=== PATIENT | female | born 1955 | race Hispanic/Latino ===

== ENCOUNTER 2016-09-13 17:19 | Inpatient (IN) | payer MEDICAID ==
[2016-09-13 17:26] VITALS: BMI 36.8
[2016-09-13 18:07] LABS: BASO # 0.1 K/uL (0.0-0.2); BASO % 0.7 % (0.0-2.0); EOS # 0.2 K/uL (0.0-0.7); EOS % 1.1 % (0.0-4.0); HEMOGLOBIN 14.2 g/dL (11.0-16.0); LYMPH # 2.3 K/uL (1.0-4.3); LYMPH % 15.5 % (20.0-40.0); MEAN CELL VOLUME 83.1 fL (81.0-99.0); MEAN CORPUSCULAR HEMOGLOBIN 27.1 pg (27.0-31.0); MEAN CORPUSCULAR HGB CONC 32.6 g/dL (33.0-37.0); MEAN PLATELET VOLUME 8.1 fL (7.2-11.7); MONO # 0.9 K/uL (0.0-0.8); MONO % 5.8 % (0.0-10.0); NEUT # 11.5 K/uL (1.8-7.0); NEUT % 76.9 % (50.0-75.0); RBC 5.23 Mil/uL (3.80-5.20); RED CELL DISTRIBUTION WIDTH 14.4 % (11.5-14.5); WHITE BLOOD COUNT 14.9 K/uL (4.8-10.8)
[2016-09-13 18:13] LABS: ALBUMIN 4.1 g/dL (3.5-5.0)
[2016-09-13 18:16] LABS: ALB/GLOB RATIO 1.3 (1.0-2.1); AST/SGOT 18 U/L (14-36); GFR AFRICAN-AMERICAN > 60; GFR NON-AFRICAN AMERICAN > 60
[2016-09-13 18:17] LABS: ALT/SGPT 24 U/L (9-52); BLOOD UREA NITROGEN 6 mg/dL (7-17); CALCIUM 9.7 mg/dl (8.6-10.4)
[2016-09-13 18:26] LABS: PROTHROMBIN TIME 11.7 SECONDS (9.7-12.2)
--- NOTE | 2016-09-13 18:26 | C.PDOC ---
History Of Present Illness Patient is a 60 y/o female that is sent to the ED by Dr. Bowman for Invega injection. As per niece, patient complains of shortness of breath, and was told to report to ER by Dr. Rey. Of note, patient is heavy smoker. Patient was last admitted 5 months ago, but had signed out AMA to smoke. Pt states, "I do not want to ." Otherwise, denies any cough, chest pain, palpitations, lightheadedness, fever, chills, or any other associated symptoms at this time. Time Seen by Provider: 09/13/16 17:38 Chief Complaint (Nursing): Shortness Of Breath History Per: Patient History/Exam Limitations: no limitations Onset/Duration Of Symptoms: Days Current Symptoms Are (Timing): Still Present Severity: None Pain Scale Rating Of: 0 Associated Symptoms: denies: Fever, Chills, Sweating, Chest Pain, Bloody Cough, Productive Cough, Heart Racing, Leg/Calf Pain, Ankle/Leg Swelling, Dizziness, Light-headedness, Anxiety, Tingling In Hands Or Face, Musle Spasms In Hands Or Feet Reports Recently: Treated By A Physician Recent travel outside of the [place]: No Additional History Per: Patient Past Medical History Reviewed: Historical Data, Nursing Documentation, Vital Signs Vital Signs: Last Vital Signs Temp 97.9 F 09/13/16 17:31 Pulse 125 H 09/13/16 17:50 Resp 25 H 09/13/16 17:52 BP 132/101 H 09/13/16 17:50 Pulse Ox 98 09/13/16 18:54 - Medical History PMH: Anxiety, Arthritis, COPD, Depression, Emphysema, HTN, Hypercholesterolemia , Migraine, Pneumonia (2009), Schizophrenia Denies: Chronic Kidney Disease Family History: States: Unknown Family Hx - Social History Hx Alcohol Use: No Hx Substance Use: No - Immunization History Hx Tetanus Toxoid Vaccination: No Hx Influenza Vaccination: No Hx Pneumococcal Vaccination: No Review Of Systems Except As Marked, All Systems Reviewed And Found Negative. Constitutional: Negative for: Fever, Chills Cardiovascular: Negative for: Chest Pain, Palpitations, Edema, Light Headedness Respiratory: Positive for: Shortness of Breath. Negative for: Cough, Hemoptysis , Pleuritic Pain, Sputum Gastrointestinal: Negative for: Nausea, Vomiting, Abdominal Pain Neurological: Negative for: Weakness, Numbness, Headache, Dizziness Physical Exam - Physical Exam Appears: Non-toxic, No Acute Distress, Other (anxious) Skin: Normal Color, Warm, Dry Head: Atraumatic, Normacephalic Eye(s): bilateral: Normal Inspection, EOMI Neck: Normal ROM, Supple Chest: Symmetrical, No Tenderness Cardiovascular: Rhythm Regular (tachycardic), No Murmur Respiratory: No Rales, No Rhonchi, Wheezing Gastrointestinal/Abdominal: Soft, No Tenderness Extremity: Normal ROM, No Pedal Edema, Capillary Refill (< 2 sec.), No Deformity Pulses: Left Dorsalis Pedis: Normal, Right Dorsalis Pedis: Normal Neurological/Psych: Oriented x3, Normal Speech, Normal Cognition ED Course And Treatment - Laboratory Results Result Diagrams: 09/13/16 18:03 09/13/16 18:03 ECG: Interpreted By Me, Viewed By Me ECG Rhythm: Sinus Tachycardia ECG Interpretation: No Acute Changes Rate From EC (bpm) O2 Sat by Pulse Oximetry: 98 (on RA) Pulse Ox Interpretation: Normal Progress Note: Blood work, urinalysis, CXR, EKG ordered and reviewed. Patient was treated with Albuterol, Solu-Medrol, and Avelox. - Physician Consult Information Physician Contacted: Bhavesh Rey Outcome Of Conversation: Accepted to Med/Surg for observation Disposition - Disposition Disposition: HOSPITALIZED Disposition Time: 18:57 Condition: FAIR - Clinical Impression Clinical Impression: Bronchitis, COPD exacerbation - PA / BLENDING LINE ATTENDANT / Resident Statement MD/DO has reviewed & agrees with the documentation as recorded. - Scribe Statement The provider has reviewed the documentation as recorded by the Ivanaibdiana Granger All medical record entries made by the Ivanaibdiana were at my direction and personally dictated by me. I have reviewed the chart and agree that the record accurately reflects my personal performance of the history, physical exam, medical decision making, and the department course for this patient. I have also personally directed, reviewed, and agree with the discharge instructions and disposition. Decision To Admit - Pt Status Changed To: Hospital Disposition Of: Observation - . Bed Request Type: Regular Admitting Physician: Bhavesh Rey Patient Diagnosis: COPD exacerbation, Bronchitis
[2016-09-13 18:27] LABS: CK-MB 1.24 ng/mL (0.0-3.38)
[2016-09-13] MEDS ORDERED: Albuterol-Ipratrop 3 mg / 0.5 (3 ml) UD IH STA (18:35)
[2016-09-13] MEDS ORDERED: Albuterol-Ipratrop 3 mg / 0.5 (3 ml) UD ONE ×2 (18:49→21:18)
[2016-09-13] MEDS ORDERED: Moxifloxacin IV 400mg/250ml NS 400 MG/250 ML BAG IV STA (18:49)
[2016-09-13] MEDS ORDERED: Moxifloxacin IV 400mg/250ml NS 400 MG/250 ML BAG IVPB ONE (19:01)
[2016-09-13] MEDS ORDERED: Albuterol-Ipratrop 3 mg / 0.5 (3 ml) UD INH STA (21:06)
--- NOTE | 2016-09-13 21:59 | CP.PCM.HP ---
History of Present Illness - History of Present Illness History of Present Illness: Chief complaint: Shortness of breath History present illness: 60-year-old female with history of COPD, currently active smoking, schizophrenia , bipolar disease. Patient is currently being followed up by psychiatrist. Currently receiving intra-muscular injection INVEGA once in 2 months. Patient used to be on multiple medications, but she has a significant behavior problems including problem in her cleanliness, patient is extremely untidy. Patient still continues to smoke almost to 2 packs per day. Patient was complaining of increasing dizziness. She was also complaining of generalized body pain, back pain, and bilateral knee pain. Patient went to see his psychiatrist today. During the time patient was seen severe shortness of breath, and was taken to the emergency room. In the emergency room patient was having severe shortness of breath. Exertional dyspnea significant noted. Hypoxia noted. Patient was immediately placed on oxygen and given nebulizers Past medical history: Hypertension, osteoarthritis, osteoporosis, COPD, schizophrenia, hypercholesterolemia. Past surgical history: None Allergies: Penicillin and tetracycline Personal history: Patient is a lifelong nonalcoholic, but patient continues to smoke for many years, more than 30 years, 2 pack per day currently she is smoking 1 pack per day. Denies any drug abuse. Patient sees the psychiatrist once a month and she gets the injection Family history: Noncontributory Review of system: The patient is somewhat agitated. She was complaining of dizziness. According to the family member she was having some ear infection, especially on the right side with the some discharge. According to the family members and she was also having some discharge from the left side of the breast. She was having epigastric pain, abdominal pain on and off. But severe shortness of breath and cough and wheezing noted Vital signs reviewed No neck vein distention noted Severe bilateral diffuse wheezing and rhonchi noted CVS regular heart sound, no murmur noted Abdomen soft, nontender. Extremities no pedal edema TUBE BLOWER alert awake oriented 3, no functional neurological deficit Left breast was examined with the nurse at bedside, no evidence of lesions noted Right ear some discharge noted Chest x-ray showing no evidence of any acute infiltrate, but left lower lung zone haziness noted Assessment a condition: 60-year-old female with history of COPD, active smoking, schizophrenia, bipolar disease. Now admitted with acute exacerbation of COPD with the severe wheezing and rhonchi. Patient is on antibiotic Avelox, corticosteroids, broncho-dilator. Glucose monitoring. Patient is currently refusing to have the further workup including CAT scan of the lungs, and the further ENT evaluation. We will attempted to have further evaluation, continue the current treatment, DVT and GI prophylaxis. Will follow the patient. She is complaining of vertigo most likely related to the right ear infection. Patient is also having agitation, and anxiety. We'll get a psychiatric consultation tomorrow Present on Admission - Present on Admission Any Indicators Present on Admission: No History of DVT/PE: No History of Uncontrolled Diabetes: No Urinary Catheter: No Decubitus Ulcer Present: No Past Patient History - Infectious Disease Hx of Infectious Diseases: None - Past Medical History & Family History Past Medical History?: Yes - Past Social History Smoking Status: Heavy Smoker > 10 Cigarettes Daily - CARDIAC Hx Hypercholesterolemia: Yes Hx Hypertension: Yes - PULMONARY Hx Chronic Obstructive Pulmonary Disease (COPD): Yes Hx Emphysema: Yes Hx Pneumonia: Yes (2009) - NEUROLOGICAL Hx Migraine: Yes - HEENT Hx HEENT Problems: Yes Other/Comment: wear eyeglasses (bifocal) - RENAL Hx Chronic Kidney Disease: No - ENDOCRINE/METABOLIC Hx Endocrine Disorders: No - HEMATOLOGICAL/ONCOLOGICAL Hx Blood Disorders: No - INTEGUMENTARY Hx Dermatological Problems: No - MUSCULOSKELETAL/RHEUMATOLOGICAL Hx Arthritis: Yes - GASTROINTESTINAL Hx Gastrointestinal Disorders: No - GENITOURINARY/GYNECOLOGICAL Hx Genitourinary Disorders: No - PSYCHIATRIC Hx Anxiety: Yes Hx Depression: Yes Hx Schizophrenia: Yes Hx Substance Use: No - SURGICAL HISTORY Hx Surgeries: No - ANESTHESIA Hx Anesthesia: No Hx Anesthesia Reactions: No Hx Malignant Hyperthermia: No Meds Allergies/Adverse Reactions: Allergies Allergy/AdvReac Type Severity Reaction Status Date / Time Penicillins Allergy Verified 09/13/16 17:23 tetracycline Allergy Verified 09/13/16 17:23 Results - Vital Signs Recent Vital Signs: Last Vital Signs Temp 97.9 F 09/13/16 17:31 Pulse 125 H 09/13/16 17:50 Resp 25 H 09/13/16 17:52 BP 132/101 H 09/13/16 17:50 Pulse Ox 98 09/13/16 18:58 - Labs Result Diagrams: 09/14/16 06:57 09/14/16 06:57
[2016-09-13 23:35] LABS: SQUAMOUS EPITHIAL 1 /hpf (0-5); URINE BACTERIA RARE (<OCC); URINE BILIRUBIN NEGATIVE (NEGATIVE); URINE BLOOD NEGATIVE (NEGATIVE); URINE CLARITY Hazy (Clear); URINE COLOR Yellow (YELLOW); URINE GLUCOSE (UA) NORMAL (Normal); URINE LEUKOCYTE ESTERASE NEG Leu/uL (Negative); URINE NITRATE NEGATIVE (NEGATIVE); URINE PROTEIN NEGATIVE (NEGATIVE); URINE UROBILINOGEN NORMAL mg/dL (0.2-1.0)
[2016-09-14] MEDS: Albuterol-Ipratrop 3 mg / 0.5 (3 ml) UD INH SCH ×4 (01:23→20:03)
[2016-09-14] MEDS ORDERED: Pneumococcal 23-Valent Vaccine IM ONE (01:56)
[2016-09-14] MEDS: MethylPREDNISolone 40 mg Vial IVP SCH ×3 (05:50→21:50)
[2016-09-14 07:10] LABS: GFR AFRICAN-AMERICAN > 60; GFR NON-AFRICAN AMERICAN > 60
[2016-09-14 07:11] LABS: ALB/GLOB RATIO 1.3 (1.0-2.1); ALT/SGPT 20 U/L (9-52); AST/SGOT 18 U/L (14-36); BLOOD UREA NITROGEN 6 mg/dL (7-17); CALCIUM 9.8 mg/dl (8.6-10.4)
[2016-09-14 07:16] LABS: BASO % 0.3 % (0.0-2.0); HEMOGLOBIN 14.6 g/dL (11.0-16.0); LYMPH # 0.8 K/uL (1.0-4.3); LYMPH % 6.6 % (20.0-40.0); MEAN CELL VOLUME 83.8 fL (81.0-99.0); MEAN CORPUSCULAR HEMOGLOBIN 27.3 pg (27.0-31.0); MEAN CORPUSCULAR HGB CONC 32.6 g/dL (33.0-37.0); MEAN PLATELET VOLUME 8.6 fL (7.2-11.7); MONO # 0.4 K/uL (0.0-0.8); MONO % 3.5 % (0.0-10.0); NEUT # 10.9 K/uL (1.8-7.0); NEUT % 89.6 % (50.0-75.0); NRBC % 0.1 % (0.0-2.0); PLATELET COUNT 281 K/uL (130-400); RBC 5.34 Mil/uL (3.80-5.20); RED CELL DISTRIBUTION WIDTH 14.2 % (11.5-14.5); WHITE BLOOD COUNT 12.2 K/uL (4.8-10.8)
[2016-09-14] MEDS: Tiotropium 18 mcg Cap For Inhalation INH SCH (08:25)
[2016-09-14] MEDS: Fluticasone-Salmeterol 500-50mcg Diskus INH SCH ×2 (08:25→20:02)
[2016-09-14 09:10] LABS: BANDS 2 % (0-2); LYMPHOCYTE 8 % (20-40); MONOCYTE 2 % (0-10); NEUTROPHIL 88 % (50-75); PLATELET ESTIMATE NORMAL (NORMAL); TOTAL CELLS COUNTED 100
[2016-09-14] MEDS: Pantoprazole 40 mg EC Tab PO SCH (09:48)
--- NOTE | 2016-09-14 10:41 | RAD ---
PROCEDURE: CHEST RADIOGRAPH, 1 VIEW HISTORY: Shortness of breath COMPARISON: 05/03/2016 FINDINGS: LUNGS: Moderate venous congestion with patchy bibasilar airspace opacities ; left greater than right. PLEURA: As above. CARDIOVASCULAR: Tortuous ectatic aorta. Mild cardiomegaly. OSSEOUS STRUCTURES: No significant abnormalities. VISUALIZED UPPER ABDOMEN: Normal. OTHER FINDINGS: None. IMPRESSION: Moderate venous congestion with patchy bibasilar airspace opacities ; left greater than right.
[2016-09-14] MEDS: Moxifloxacin IV 400mg/250ml NS 400 MG/250 ML BAG IVPB SCH (13:18)
[2016-09-14] MEDS: Ofloxacin 0.3% Otic Soln AU SCH (21:49)
--- NOTE | 2016-09-14 22:37 | CP.PCM.PN ---
Subjective - Date & Time of Evaluation Date of Evaluation: 09/14/16 Time of Evaluation: 22:37 - Subjective Subjective: Having significant amount of shortness of breath, and cough. She is refusing to cooperate with the nurses in the unit. She is not willing to have hospital dress. Currently receiving antibiotic and the corticosteroids. On examination: Bilateral wheezing noted, rales present. Edema 1+ bilaterally in the legs noted Assessment and recommendation 60-year-old female with a history of schizophrenia. COPD exacerbation. Chronic active smoking. We'll start the patient on antibiotic. Continue the current treatment. Objective - Vital Signs/Intake and Output Vital Signs (last 24 hours): Temp Pulse Resp BP Pulse Ox 98.1 F 118 H 20 139/83 98 09/14/16 16:00 09/14/16 16:00 09/14/16 16:00 09/14/16 16:00 09/14/16 16:00 Intake and Output: 09/14/16 09/15/16 18:59 06:59 Intake Total 950 Balance 950 - Medications Medications: Current Medications Albuterol/Ipratropium (Duoneb 3 Mg/0.5 Mg (3 Ml) Ud) 3 ml INH RQ6 [facility] Last Admin: 09/14/16 20:03 Dose: 3 ml Amlodipine Besylate (Norvasc) 10 mg PO DAILY [facility] Last Admin: 09/14/16 09:50 Dose: 10 mg Docusate Sodium (Colace) 100 mg PO BID [facility] Heparin Sodium (Porcine) (Heparin) 5,000 units SC Q8 [facility] Last Admin: 09/14/16 21:50 Dose: 5,000 units Moxifloxacin HCl (Avelox Iv 400mg/250ml Ns) 400 mg in 250 mls @ 167 mls/hr IVPB Q24H [facility] Last Admin: 09/14/16 13:18 Dose: 167 mls/hr Meclizine HCl (Antivert) 12.5 mg PO TID [facility] Methylprednisolone (Solu-Medrol) 40 mg IVP Q8 [facility] Last Admin: 09/14/16 21:50 Dose: 40 mg Ofloxacin (Floxin 0.3% Otic Soln) 0 ml AU BID [facility] Last Admin: 09/14/16 21:49 Dose: 10 drop Ondansetron HCl (Zofran Odt) 4 mg PO Q6 PRN PRN Reason: Nausea/Vomiting Pantoprazole Sodium (Protonix Ec Tab) 40 mg PO DAILY [facility] Last Admin: 09/14/16 09:48 Dose: 40 mg Pneumococcal Polyvalent Vaccine (Pneumovax 23 Vaccine) 0.5 ml IM .ONCE ONE Stop: 09/16/16 10:01 Fluticasone/Salmeterol (Advair Diskus 500/50) 1 puff INH RQ12 [facility] Last Admin: 09/14/16 20:02 Dose: Not Given Tiotropium [place] (Spiriva) 18 mcg INH RQ24 [facility] Last Admin: 09/14/16 08:25 Dose: Not Given Tramadol HCl (Ultram) 50 mg PO BID PRN PRN Reason: pain - Labs Labs: 09/14/16 06:57 09/14/16 06:57 PT 11.7 SECONDS (9.7-12.2) 09/13/16 18:03 INR 1.0 09/13/16 18:03 APTT 32 SECONDS (21-34) 09/13/16 18:03
[2016-09-15 00:07] LABS: ABG ALLEN TEST POS; ARTERIAL BLOOD GAS HCO3 26.4 mmol/L (21-28); ARTERIAL BLOOD GAS HEMOGLOBIN 13.8 g/dL (11.7-17.4); ARTERIAL BLOOD GAS O2 SAT 97.2 % (95-98); ARTERIAL BLOOD GAS PCO2 44 mm/Hg (35-45); ARTERIAL BLOOD GAS PO2 77 mm/Hg (80-100); ARTERIAL BLOOD GAS TCO2 28.7 mmol/L (22-28)
[2016-09-15] MEDS: Albuterol-Ipratrop 3 mg / 0.5 (3 ml) UD INH SCH ×4 (01:57→19:53)
[2016-09-15] MEDS: MethylPREDNISolone 40 mg Vial IVP SCH ×3 (05:58→21:18)
[2016-09-15] MEDS: Tiotropium 18 mcg Cap For Inhalation INH SCH (08:26)
[2016-09-15] MEDS: Fluticasone-Salmeterol 500-50mcg Diskus INH SCH ×2 (08:26→19:52)
[2016-09-15] MEDS ORDERED: Iohexol 240 (50 ml) PO ONE (08:45)
[2016-09-15] MEDS: Pantoprazole 40 mg EC Tab PO SCH (09:06)
[2016-09-15] MEDS: Ofloxacin 0.3% Otic Soln AU SCH ×2 (09:09→18:30)
--- NOTE | 2016-09-15 13:48 | CARD ---
APPROVED REPORT EKG Measurement Heart [id number] <Conclusion> Sinus tachycardia Otherwise normal ECG
[2016-09-15] MEDS: Moxifloxacin IV 400mg/250ml NS 400 MG/250 ML BAG IVPB SCH (14:45)
[2016-09-15] MEDS ORDERED: Albuterol-Ipratrop 3 mg / 0.5 (3 ml) UD INH STA (19:30)
--- NOTE | 2016-09-15 22:13 | CP.PCM.PN ---
Subjective - Date & Time of Evaluation Date of Evaluation: 09/15/16 Time of Evaluation: 22:13 - Subjective Subjective: Having significant amount of shortness of breath, and cough. She is refusing to cooperate with the nurses in the unit. She is not willing to have hospital dress. Currently receiving antibiotic and the corticosteroids. On examination: Bilateral wheezing noted, rales present. Edema 1+ bilaterally in the legs noted Assessment and recommendation 60-year-old female with a history of schizophrenia. COPD exacerbation. Chronic active smoking. We'll start the patient on antibiotic. Continue the current treatment. In details to have a further testing including CAT scan, carotid Doppler, echocardiography. We will get the psychiatric evaluation tomorrow. Continue the above good eye Lantus pain Patient wanted to leave the hospital. We'll get the family tomorrow. Objective - Vital Signs/Intake and Output Vital Signs (last 24 hours): Temp Pulse Resp BP Pulse Ox 98.8 F 112 H 20 115/75 97 09/15/16 16:00 09/15/16 16:00 09/15/16 16:00 09/15/16 16:00 09/15/16 16:00 Intake and Output: 09/15/16 09/16/16 18:59 06:59 Intake Total 490 Balance 490 - Medications Medications: Current Medications Albuterol/Ipratropium (Duoneb 3 Mg/0.5 Mg (3 Ml) Ud) 3 ml INH RQ6 [facility] Last Admin: 09/15/16 19:53 Dose: 3 ml Amlodipine Besylate (Norvasc) 10 mg PO DAILY [facility] Last Admin: 09/15/16 09:06 Dose: 10 mg Docusate Sodium (Colace) 100 mg PO BID [facility] Last Admin: 09/15/16 18:25 Dose: 100 mg Heparin Sodium (Porcine) (Heparin) 5,000 units SC Q8 [facility] Last Admin: 09/15/16 21:21 Dose: 5,000 units Moxifloxacin HCl (Avelox Iv 400mg/250ml Ns) 400 mg in 250 mls @ 167 mls/hr IVPB Q24H [facility] Last Admin: 09/15/16 14:45 Dose: 167 mls/hr Meclizine HCl (Antivert) 12.5 mg PO TID [facility] Last Admin: 09/15/16 18:25 Dose: 12.5 mg Methylprednisolone (Solu-Medrol) 40 mg IVP Q8 [facility] Last Admin: 09/15/16 21:18 Dose: 40 mg Ofloxacin (Floxin 0.3% Otic Soln) 0 ml AU BID [facility] Last Admin: 09/15/16 18:30 Dose: 1 drop Ondansetron HCl (Zofran Odt) 4 mg PO Q6 PRN PRN Reason: Nausea/Vomiting Pantoprazole Sodium (Protonix Ec Tab) 40 mg PO DAILY [facility] Last Admin: 09/15/16 09:06 Dose: 40 mg Pneumococcal Polyvalent Vaccine (Pneumovax 23 Vaccine) 0.5 ml IM .ONCE ONE Stop: 09/16/16 10:01 Fluticasone/Salmeterol (Advair Diskus 500/50) 1 puff INH RQ12 [facility] Last Admin: 09/15/16 19:52 Dose: Not Given Tiotropium [place] (Spiriva) 18 mcg INH RQ24 [facility] Last Admin: 09/15/16 08:26 Dose: Not Given Tramadol HCl (Ultram) 50 mg PO BID PRN PRN Reason: pain - Labs Labs: PT 11.7 SECONDS (9.7-12.2) 09/13/16 18:03 INR 1.0 09/13/16 18:03 APTT 32 SECONDS (21-34) 09/13/16 18:03
[2016-09-16] MEDS: Albuterol-Ipratrop 3 mg / 0.5 (3 ml) UD INH SCH ×3 (01:09→20:39)
[2016-09-16] MEDS: MethylPREDNISolone 40 mg Vial IVP SCH ×4 (05:27→22:33)
[2016-09-16] MEDS: Pantoprazole 40 mg EC Tab PO SCH (09:07)
[2016-09-16] MEDS: Ofloxacin 0.3% Otic Soln AU SCH ×2 (09:10→18:35)
[2016-09-16] MEDS ORDERED: Pneumococcal 23-Valent Vaccine IM ONE (10:00)
[2016-09-16] MEDS: Fluticasone-Salmeterol 500-50mcg Diskus INH SCH ×2 (10:28→20:38)
[2016-09-16] MEDS: Moxifloxacin IV 400mg/250ml NS 400 MG/250 ML BAG IVPB SCH (13:49)
[2016-09-16 14:02] LABS: BASO % 0.1 % (0.0-2.0); HEMOGLOBIN 13.5 g/dL (11.0-16.0); LYMPH # 0.9 K/uL (1.0-4.3); LYMPH % 5.4 % (20.0-40.0); MEAN CELL VOLUME 83.9 fL (81.0-99.0); MEAN CORPUSCULAR HEMOGLOBIN 26.8 pg (27.0-31.0); MEAN CORPUSCULAR HGB CONC 31.9 g/dL (33.0-37.0); MEAN PLATELET VOLUME 8.6 fL (7.2-11.7); MONO # 1.2 K/uL (0.0-0.8); MONO % 7.3 % (0.0-10.0); NEUT # 14.4 K/uL (1.8-7.0); NEUT % 87.2 % (50.0-75.0); PLATELET COUNT 287 K/uL (130-400); RBC 5.05 Mil/uL (3.80-5.20); RED CELL DISTRIBUTION WIDTH 14.9 % (11.5-14.5); WHITE BLOOD COUNT 16.5 K/uL (4.8-10.8)
[2016-09-16 14:19] LABS: ALBUMIN 3.7 g/dL (3.5-5.0)
[2016-09-16 14:22] LABS: GFR AFRICAN-AMERICAN > 60; GFR NON-AFRICAN AMERICAN > 60
[2016-09-16 14:23] LABS: ALB/GLOB RATIO 1.3 (1.0-2.1); ALT/SGPT 19 U/L (9-52); AST/SGOT 21 U/L (14-36); BLOOD UREA NITROGEN 15 mg/dL (7-17); CALCIUM 9.1 mg/dl (8.6-10.4)
[2016-09-16 14:52] LABS: LYMPHOCYTE 9 % (20-40); MONOCYTE 3 % (0-10); NEUTROPHIL 88 % (50-75); PLATELET ESTIMATE NORMAL (NORMAL); TOTAL CELLS COUNTED 100
--- NOTE | 2016-09-16 22:41 | CP.PCM.PN ---
Subjective - Date & Time of Evaluation Date of Evaluation: 09/16/16 Time of Evaluation: 22:41 Objective - Vital Signs/Intake and Output Vital Signs (last 24 hours): Temp Pulse Resp BP Pulse Ox 98.5 F 104 H 20 153/91 H 100 09/16/16 15:00 09/16/16 15:00 09/16/16 15:00 09/16/16 15:00 09/16/16 15:00 Intake and Output: 09/16/16 09/17/16 18:59 06:59 Intake Total 850 Balance 850 - Medications Medications: Current Medications Albuterol/Ipratropium (Duoneb 3 Mg/0.5 Mg (3 Ml) Ud) 3 ml INH RQ6 [facility] Last Admin: 09/16/16 20:39 Dose: 3 ml Amlodipine Besylate (Norvasc) 10 mg PO DAILY [facility] Last Admin: 09/16/16 09:10 Dose: 10 mg Docusate Sodium (Colace) 100 mg PO BID [facility] Last Admin: 09/16/16 17:47 Dose: 100 mg Heparin Sodium (Porcine) (Heparin) 5,000 units SC Q8 [facility] Last Admin: 09/16/16 22:32 Dose: 5,000 units Moxifloxacin HCl (Avelox Iv 400mg/250ml Ns) 400 mg in 250 mls @ 167 mls/hr IVPB Q24H [facility] Last Admin: 09/16/16 13:49 Dose: 167 mls/hr Meclizine HCl (Antivert) 12.5 mg PO TID [facility] Last Admin: 09/16/16 17:47 Dose: 12.5 mg Methylprednisolone (Solu-Medrol) 40 mg IVP Q8 [facility] Last Admin: 09/16/16 22:33 Dose: 40 mg Ofloxacin (Floxin 0.3% Otic Soln) 0 ml AU BID [facility] Last Admin: 09/16/16 18:35 Dose: 1 drop Ondansetron HCl (Zofran Odt) 4 mg PO Q6 PRN PRN Reason: Nausea/Vomiting Pantoprazole Sodium (Protonix Ec Tab) 40 mg PO DAILY [facility] Last Admin: 09/16/16 09:07 Dose: 40 mg Fluticasone/Salmeterol (Advair Diskus 500/50) 1 puff INH RQ12 [facility] Last Admin: 09/16/16 20:38 Dose: Not Given Tiotropium [place] (Spiriva) 18 mcg INH RQ24 [facility] Last Admin: 09/15/16 08:26 Dose: Not Given Tramadol HCl (Ultram) 50 mg PO BID PRN PRN Reason: pain - Labs Labs: 09/16/16 13:57 09/16/16 13:57 PT 11.7 SECONDS (9.7-12.2) 09/13/16 18:03 INR 1.0 09/13/16 18:03 APTT 32 SECONDS (21-34) 09/13/16 18:03
[2016-09-17] MEDS: Albuterol-Ipratrop 3 mg / 0.5 (3 ml) UD INH SCH ×4 (01:18→19:26)
[2016-09-17] MEDS: MethylPREDNISolone 40 mg Vial IVP SCH ×3 (05:58→21:48)
[2016-09-17] MEDS: Fluticasone-Salmeterol 500-50mcg Diskus INH SCH ×2 (07:42→19:25)
[2016-09-17] MEDS: Tiotropium 18 mcg Cap For Inhalation INH SCH (07:42)
[2016-09-17] MEDS: Ofloxacin 0.3% Otic Soln AU SCH ×2 (10:41→17:54)
[2016-09-17] MEDS: Pantoprazole 40 mg EC Tab PO SCH (10:41)
[2016-09-17] MEDS: Moxifloxacin IV 400mg/250ml NS 400 MG/250 ML BAG IVPB SCH (14:44)
--- NOTE | 2016-09-17 15:09 | PCM.PSYCH ---
Initial Psychiatric Evaluation - Initial Psychiatric Evaluation Type of Admission: Voluntary Legal Status: Capacity Chief Complaint (in patient's own words): I was short of breath.' History of Present Illness and Precipitating Events: Pt is a 60-year-old female with history of schizoaffective disorder bipolar type , came to the hospital with complain of dizziness. Today patient was consulted because of history of schizoaffective disorder bipolar type. Patient reports a long history of schizoaffective disorder bipolar type As per the patient she has been following up with [facility], and receiving IM INVEGA. Today patient went to see his psychiatrist, during the appointment patient was seen severe shortness of breath, and was taken to the emergency room. As per the staff pt is refusing all the tests and procedures. Patient reports of irritability and agitation because of shortness of breath. However she denies any feelings of hopelessness or helplessness or worthlessness. Patient denies any auditory or visual hallucinations or any psychotic symptoms. Denies any suicidal ideation or homicidal ideation. Denies any manic symptoms. Denies any other substance abuse. After speaking to the pt, pt agreed to go through the blood tests and other procedures. Past medical history: Hypertension, osteoarthritis, osteoporosis, COPD, hypercholesterolemia. Current Medications: Active Medications Generic Name Dose Route Start Last Admin Trade Name Freq PRN Reason Stop Dose Admin Albuterol/Ipratropium 3 ml 09/14/16 02:00 09/17/16 13:41 Duoneb 3 Mg/0.5 Mg (3 Ml) Ud INH 3 ml RQ6 [facility] Administration Amlodipine Besylate 10 mg 09/14/16 10:00 09/17/16 10:41 Norvasc PO 10 mg DAILY [facility] Administration Docusate Sodium 100 mg 09/15/16 10:00 09/17/16 10:41 Colace PO Not Given BID [facility] Heparin Sodium (Porcine) 5,000 units 09/13/16 22:00 09/17/16 14:44 Heparin SC 5,000 units Q8 [facility] Administration Moxifloxacin HCl 400 mg in 250 mls @ 167 mls/hr 09/14/16 13:00 09/17/16 14:44 Avelox Iv 400mg/250ml Ns IVPB 167 mls/hr Q24H [facility] Administration Meclizine HCl 12.5 mg 09/15/16 10:00 09/17/16 14:43 Antivert PO 12.5 mg TID [facility] Administration Methylprednisolone 40 mg 09/13/16 22:00 09/17/16 14:43 Solu-Medrol IVP 40 mg Q8 [facility] Administration Ofloxacin 0 ml 09/14/16 19:30 09/17/16 10:41 Floxin 0.3% Otic Soln AU 10 drop BID [facility] Administration Ondansetron HCl 4 mg 09/13/16 21:07 Zofran Odt PO Q6 PRN Nausea/Vomiting Pantoprazole Sodium 40 mg 09/14/16 10:00 09/17/16 10:41 Protonix Ec Tab PO 40 mg DAILY [facility] Administration Fluticasone/Salmeterol 1 puff 09/14/16 08:00 09/17/16 07:42 Advair Diskus 500/50 INH Not Given RQ12 [facility] Tiotropium [place] 18 mcg 09/14/16 08:00 09/17/16 07:42 Spiriva INH Not Given RQ24 [facility] Tramadol HCl 50 mg 09/13/16 21:07 Ultram PO BID PRN pain Past Psychiatric History - Past Psychiatric History Previous Treatment History: Inpatient Pertinent Medical Hx (Current Medical&Sleep Prob, Allergies): Allergies Allergy/AdvReac Type Severity Reaction Status Date / Time Penicillins Allergy Verified 09/13/16 17:23 tetracycline Allergy Verified 09/13/16 17:23 Invega 1 unit IM MO 02/04/15 Meclizine HCl 12.5 mg PO TID #90 tablet 05/05/16 Ondansetron ODT [Zofran ODT] 4 mg PO Q6 PRN #15 odt 05/05/16 Pantoprazole [Protonix] 40 mg PO Q12 #60 ect 05/05/16 amLODIPine [Norvasc] 10 mg PO DAILY #30 tab 05/05/16 traMADol [Ultram] 50 mg PO BID PRN #10 tab 05/05/16 Review of Systems - Review of Systems All systems: reviewed and no additional remarkable complaints except - Psychiatric Psychiatric: Anxiety, Irritability Mental Status Examination - Personal Presentation Personal Presentation: Looks stated age - Affect Affect: Broad - Motor Activity Motor Activity: Psychomotor Agitation - Reliability in Providing Information Reliability in Providing Information: Fair, Poor, due to altered mood - Speech Speech: Organized - Mood Mood: Anxious - Formal Thought Process Formal Thought Process: Loosening of associations - Obsessions/Compulsions Obsessions: No Compulsions: No - Cognitive Functions Orientation: Person, Place, Situation, Time Sensorium: Alert Attention/Concentration: Attentive Abstract Thinking: [place] Estimate of Intelligence: Below average Judgement: Intact, as evidence by: Good judgement, Intact, as evidence by: Insight regarding need for hospitalization - Risk Risk: Diminished functioning - Strength & Assets Inventory Strength & Assets Inventory: Cooperative DSM 5 DX - DSM 5 DSM 5 Diagnosis: Schizoaffective disorder bipolar type - Recommended/Plan of Treatment Treatment Recommendations and Plan of Treatment: Schizoaffective disorder bipolar type CBT Psychoeducation Supportive therapy, group therapy, individual therapy Atarax 25 mg PO Q6 hr prn Neurontin 100 mg by mouth 3 times a day Trazodone 50 mg by mouth daily at bedtime Invega 115 mg I/M ( last received 1 week ago) Risperdal 1 mg po BID - Smoking Cessation Smoking Cessation Initiated: No
[2016-09-17] MEDS ORDERED: Barium Sulfate Susp 2.1% w/v, 2.0% w/w 450 mL Bottle PO ONE (18:26)
[2016-09-18] MEDS: Albuterol-Ipratrop 3 mg / 0.5 (3 ml) UD INH SCH ×2 (02:18→07:50)
[2016-09-18] MEDS: MethylPREDNISolone 40 mg Vial IVP SCH (05:27)
[2016-09-18] MEDS: Fluticasone-Salmeterol 500-50mcg Diskus INH SCH (07:51)
[2016-09-18] MEDS: Tiotropium 18 mcg Cap For Inhalation INH SCH (07:51)
[2016-09-18] MEDS: Pantoprazole 40 mg EC Tab PO SCH (09:18)
[2016-09-18] MEDS: Ofloxacin 0.3% Otic Soln AU SCH (09:23)
--- NOTE | 2016-09-18 10:16 | CP.PCM.PN ---
Subjective - Date & Time of Evaluation Date of Evaluation: 09/18/16 Time of Evaluation: 10:11 - Subjective Subjective: 60 Y/O FEMALE SEEN AND EXAMINED TODAY PMHX: ANXIETY, COPD, ARTHRITIS, HTN, HYPERCHOLESTEROLEMIA, MIGRAINE, SCHIZOPHRENIA ADMITTED FOR COPD EXACERBATION, BRONCHITIS LUNGS CTA B/L, RESP EASY AND UNLABORED, NAD RX FOR AZITHROMYCIN, MEDROL DOSE PACK, FOLLOW UP WITH DR. WILSON IN THE OFFICE IN 2-3 DAYS RETURN TO ED IF ANY WORSENING S/S Objective - Vital Signs/Intake and Output Vital Signs (last 24 hours): Temp Pulse Resp BP Pulse Ox 97.9 F 106 H 22 151/90 H 95 09/18/16 08:00 09/18/16 08:00 09/18/16 08:00 09/18/16 08:00 09/18/16 08:00 Intake and Output: 09/18/16 09/18/16 06:59 18:59 Intake Total 450 Balance 450 - Medications Medications: Current Medications Albuterol/Ipratropium (Duoneb 3 Mg/0.5 Mg (3 Ml) Ud) 3 ml INH RQ6 [facility] Last Admin: 09/18/16 07:50 Dose: 3 ml Amlodipine Besylate (Norvasc) 10 mg PO DAILY [facility] Last Admin: 09/18/16 09:17 Dose: 10 mg Buspirone HCl (Buspar) 10 mg PO TID PRN PRN Reason: Anxiety Docusate Sodium (Colace) 100 mg PO BID [facility] Last Admin: 09/18/16 09:21 Dose: Not Given Gabapentin (Neurontin) 100 mg PO TID [facility] Last Admin: 09/18/16 09:21 Dose: Not Given Heparin Sodium (Porcine) (Heparin) 5,000 units SC Q8 [facility] Last Admin: 09/18/16 05:28 Dose: 5,000 units Hydroxyzine HCl (Atarax) 25 mg PO Q6 PRN PRN Reason: Agitation Hydroxyzine HCl (Atarax) 25 mg PO Q6 PRN PRN Reason: Agitation Moxifloxacin HCl (Avelox Iv 400mg/250ml Ns) 400 mg in 250 mls @ 167 mls/hr IVPB Q24H [facility] Last Admin: 09/17/16 14:44 Dose: 167 mls/hr Meclizine HCl (Antivert) 12.5 mg PO TID [facility] Last Admin: 09/18/16 09:18 Dose: 12.5 mg Methylprednisolone (Solu-Medrol) 40 mg IVP Q8 [facility] Last Admin: 09/18/16 05:27 Dose: 40 mg Ofloxacin (Floxin 0.3% Otic Soln) 0 ml AU BID [facility] Last Admin: 09/18/16 09:23 Dose: Not Given Ondansetron HCl (Zofran Odt) 4 mg PO Q6 PRN PRN Reason: Nausea/Vomiting Pantoprazole Sodium (Protonix Ec Tab) 40 mg PO DAILY [facility] Last Admin: 09/18/16 09:18 Dose: 40 mg Risperidone (Risperdal Tab) 1 mg PO HS [facility] Last Admin: 09/17/16 21:58 Dose: Not Given Fluticasone/Salmeterol (Advair Diskus 500/50) 1 puff INH RQ12 [facility] Last Admin: 09/18/16 07:51 Dose: Not Given Tiotropium [place] (Spiriva) 18 mcg INH RQ24 [facility] Last Admin: 09/18/16 07:51 Dose: Not Given Tramadol HCl (Ultram) 50 mg PO BID PRN PRN Reason: pain Trazodone HCl (Desyrel) 50 mg PO HS [facility] Last Admin: 09/17/16 21:48 Dose: Not Given - Labs Labs: 09/16/16 13:57 09/16/16 13:57 PT 11.7 SECONDS (9.7-12.2) 09/13/16 18:03 INR 1.0 09/13/16 18:03 APTT 32 SECONDS (21-34) 09/13/16 18:03
[2016-09-18 12:26] VITALS: BP 151/90; PULSE 106; TEMP 97.9; O2SAT 95
[2016-09-18 12:45] VITALS: RESP 22
== END 2016-09-18 11:30 | disposition home or self-care (01) | DRG 88 ==
LOC: C.ER 17:19 → C.9E 18:49 → C.3T 20:58 → OBSVTOIN 09-15 13:52
PROVIDERS: ADMIT Internal Medicine; ATTEND Internal Medicine
DX: J44.1 Chronic obstructive pulmonary disease with (acute) exacerbation (principal); F25.0 Schizoaffective disorder, bipolar type; I10 Essential (primary) hypertension; R09.02 Hypoxemia; E78.00 Pure hypercholesterolemia, unspecified; F17.210 Nicotine dependence, cigarettes, uncomplicated; M81.0 Age-related osteoporosis without current pathological fracture; Z87.01 Personal history of pneumonia (recurrent)

== ENCOUNTER 2016-10-20 18:16 | Inpatient (IN) | payer MEDICAID ==
[2016-10-20 18:16] VITALS: BMI 36.8
--- NOTE | 2016-10-20 19:27 | C.PDOC ---
History Of Present Illness 60 y/o female c/o chest pain, palpitations, SOB for 2 days. Denies fever, chills , dizziness, light headedness, diaphoresis, lower extremity pain, or any other complaints. Time Seen by Provider: 10/20/16 19:26 Chief Complaint (Nursing): Chest Pain History Per: Patient History/Exam Limitations: no limitations Onset/Duration Of Symptoms: Days (2) Current Symptoms Are (Timing): Still Present Quality: "Pain" Severity: Mild Pain Scale Rating Of: 4 Associated Symptoms: denies: Fever, Chills, Leg/Calf Pain, Ankle/Leg Swelling, Dizziness, Light-headedness Recent travel outside of the [place]: No Additional History Per: Patient Past Medical History Reviewed: Historical Data, Nursing Documentation, Vital Signs Vital Signs: Last Vital Signs Temp Pulse 119 H 10/20/16 20:41 Resp 23 10/20/16 20:41 BP 103/75 10/20/16 20:41 Pulse Ox 99 10/20/16 20:41 - Medical History PMH: Anxiety, Arthritis, COPD, Depression, Emphysema, HTN, Hypercholesterolemia , Migraine, Pneumonia (2009), Schizophrenia Denies: Chronic Kidney Disease Family History: States: No Known Family Hx - Social History Hx Alcohol Use: No Hx Substance Use: No - Immunization History Hx Tetanus Toxoid Vaccination: No Hx Influenza Vaccination: No Hx Pneumococcal Vaccination: No Review Of Systems Constitutional: Negative for: Fever, Chills, Sweats Eyes: Negative for: Vision Change ENT: Negative for: Throat Pain Cardiovascular: Positive for: Chest Pain, Palpitations. Negative for: Light Headedness Respiratory: Positive for: Shortness of Breath Gastrointestinal: Negative for: Nausea, Vomiting Genitourinary: Negative for: Dysuria Musculoskeletal: Negative for: Leg Pain, Foot Pain Skin: Negative for: Rash, Lesions Neurological: Negative for: Headache, Dizziness Psych: Negative for: Anxiety Physical Exam - Physical Exam Appears: Non-toxic Skin: Warm, Dry Head: Normacephalic Eye(s): bilateral: Normal Inspection Oral Mucosa: Moist Neck: Trachea Midline, Supple Chest: Symmetrical Cardiovascular: Rhythm Regular (Tachycardic) Respiratory: Decreased Breath Sounds, No Rales, Rhonchi (Scattered at the bases) , Wheezing (Scattered at the bases), Other (Speaking complete sentences) Gastrointestinal/Abdominal: Soft, No Tenderness, Distention, No Guarding, Other (Tympanic to percussion) Back: No CVA Tenderness Extremity: Normal ROM Extremity: Bilateral: Atraumatic, Normal Color And Temperature, Normal ROM Pulses: Left Dorsalis Pedis: Normal, Right Dorsalis Pedis: Normal Neurological/Psych: Oriented x3, Normal Speech, Normal Cognition Gait: Steady ED Course And Treatment - Laboratory Results Result Diagrams: 10/20/16 19:38 10/20/16 19:38 ECG: Interpreted By Me, Viewed By Me ECG Rhythm: Sinus Tachycardia (144), Nonspecific Changes O2 Sat by Pulse Oximetry: 97 (RA) Pulse Ox Interpretation: Normal - Radiology CXR: Interpreted by Me, Viewed By Me Disposition Discussed With .: Bhavesh Rey Comment: accepted the pt on his service and took over the care at9:27 PM Doctor Will See Patient In The: ED Counseled Patient/Family Regarding: Studies Performed, Diagnosis - Disposition Disposition: HOSPITALIZED Disposition Time: 19:26 Condition: FAIR Forms: [employer] (Estonian) - POA Present On Arrival: Poor Glycemic Control - Clinical Impression Clinical Impression: Dyspnea, COPD exacerbation, Chest pain - Scribe Statement The provider has reviewed the documentation as recorded by the Scribe Toya prajapati All medical record entries made by the Scribe were at my direction and personally dictated by me. I have reviewed the chart and agree that the record accurately reflects my personal performance of the history, physical exam, medical decision making, and the department course for this patient. I have also personally directed, reviewed, and agree with the discharge instructions and disposition. Decision To Admit - Pt Status Changed To: Hospital Disposition Of: Inpatient - Admit Certification Admit to Inpatient:: After my assessment, the patient will require hospitalization for at least two midnights. This is because of the severity of symptoms shown, intensity of services needed, and/or the medical risk in this patient being treated as an outpatient. - InPatient: Physician Admission Certification: I certify that this patient requires 2 or more midnights of care for the following reason:: After my assessment, the patient will require hospitalization for at least two midnights. This is because of the severity of symptoms shown, intensity of services needed, and/or the medical risk in this patient being treated as an outpatient. - . Bed Request Type: Telemetry Admitting Physician: Bhavesh Rey Patient Diagnosis: Dyspnea, COPD exacerbation, Chest pain
[2016-10-20 19:41] LABS: BASO # 0.1 K/uL (0.0-0.2); BASO % 0.7 % (0.0-2.0); EOS # 0.1 K/uL (0.0-0.7); EOS % 0.4 % (0.0-4.0); HEMATOCRIT 47.5 % (34.0-47.0); LYMPH # 3.4 K/uL (1.0-4.3); LYMPH % 18.3 % (20.0-40.0); MEAN CELL VOLUME 82.9 fL (81.0-99.0); MEAN CORPUSCULAR HEMOGLOBIN 27.2 pg (27.0-31.0); MEAN CORPUSCULAR HGB CONC 32.8 g/dL (33.0-37.0); MEAN PLATELET VOLUME 8.4 fL (7.2-11.7); MONO # 1.1 K/uL (0.0-0.8); MONO % 5.7 % (0.0-10.0); RED CELL DISTRIBUTION WIDTH 14.8 % (11.5-14.5); WHITE BLOOD COUNT 18.6 K/uL (4.8-10.8)
[2016-10-20 19:57] LABS: CHLORIDE 100 mmol/L (98-107); POTASSIUM 3.6 mmol/L (3.6-5.2); SODIUM 141 mmol/L (132-148)
[2016-10-20 19:59] LABS: BILIRUBIN,TOTAL 0.6 mg/dL (0.2-1.3); GFR AFRICAN-AMERICAN > 60
[2016-10-20 20:00] LABS: ALB/GLOB RATIO 1.3 (1.0-2.1); ALKALINE PHOSPHATASE 107 U/L (38-126); ALT/SGPT 19 U/L (9-52); AST/SGOT 19 U/L (14-36); BLOOD UREA NITROGEN 6 mg/dL (7-17); CALCIUM 10.3 mg/dl (8.6-10.4); CARBON DIOXIDE 22 mmol/L (22-30); GLUCOSE,RANDOM 129 mg/dL (65-105); TOTAL PROTEIN 7.7 g/dL (6.3-8.3)
[2016-10-20] MEDS ORDERED: Azithromycin 500mg/250ML NS 500 MG/250 ML BAG IVPB ONE ×2 (20:00→20:03)
[2016-10-20 20:02] LABS: VENOUS BLOOD GAS BASE EXCESS 0.3 mmol/L (0.0-2.0); VENOUS BLOOD GAS PCO2 38 mmHg (40-60); VENOUS BLOOD PH 7.42 (7.32-7.43)
[2016-10-20 20:38] LABS: RBC URINE 7 /hpf (0-3); URINE BACTERIA RARE (<OCC); URINE BILIRUBIN NEGATIVE (NEGATIVE); URINE BLOOD NEGATIVE (NEGATIVE); URINE COLOR Yellow (YELLOW); URINE GLUCOSE (UA) NORMAL (Normal); URINE KETONE TRACE mg/dL (NEGATIVE); URINE LEUKOCYTE ESTERASE NEG Leu/uL (Negative); URINE PROTEIN NEGATIVE (NEGATIVE); URINE UROBILINOGEN NORMAL mg/dL (0.2-1.0); WBC URINE 3 /hpf (0-5)
--- NOTE | 2016-10-21 00:39 | CP.PCM.PN ---
Subjective - Date & Time of Evaluation Date of Evaluation: 10/21/16 Time of Evaluation: 00:39 - Subjective Subjective: Patient with complaint of chest pain- states it is sharp in nature, denies pressure. Chest pain reproducible on exam on palpation left sternal border. Objective - Vital Signs/Intake and Output Vital Signs (last 24 hours): Temp Pulse Resp BP Pulse Ox 98.7 F 101 H 20 113/71 98 10/20/16 22:35 10/20/16 22:35 10/20/16 22:35 10/20/16 22:35 10/20/16 22:35 - Labs Labs: PT 11.4 SECONDS (9.7-12.2) 10/20/16 19:38 INR 1.0 10/20/16 19:38 APTT 35 SECONDS (21-34) H 10/20/16 19:38
--- NOTE | 2016-10-21 06:50 | CP.PCM.HP ---
History of Present Illness - History of Present Illness History of Present Illness: Chief complaint: Chest pain shortness of breath History present illness: 60-year-old female with history of COPD, currently active smoking, schizophrenia , bipolar disease. Patient is currently being followed up by psychiatrist. Currently receiving intra-muscular injection INVEGA once in 2 months. Patient used to be on multiple medications, but she has a significant behavior problems including problem in her cleanliness, patient is extremely untidy. Patient still continues to smoke almost to 2 packs per day. Patient started having sudden onset of chest pain, midsternal region, on the left side, sometimes radiating to the back. She also having some palpitation. So she came into the emergency room. Few days ago patient called my office, at the time she was complaining of increasing cough, increasing headache. Patient was also asking for cough medication at the time, and also antibiotic. Still having significant amount of cough with mucus production, and associated shortness of breath and wheezing. Past medical history: Hypertension, osteoarthritis, osteoporosis, COPD, schizophrenia, hypercholesterolemia. Past surgical history: None Allergies: Penicillin and tetracycline Personal history: Patient is a lifelong nonalcoholic, but patient continues to smoke for many years, more than 30 years, 2 pack per day currently she is smoking 1 pack per day. Denies any drug abuse. Patient sees the psychiatrist once a month and she gets the injection Family history: Noncontributory Review of system: The patient is somewhat agitated. She was complaining of dizziness. According to the family member she was having some ear infection, especially on the right side with the some discharge. She was having epigastric pain, abdominal pain on and off. But severe shortness of breath and cough and wheezing noted Vital signs reviewed No neck vein distention noted Severe bilateral diffuse wheezing and rhonchi noted CVS regular heart sound, no murmur noted Abdomen soft, nontender. Extremities no pedal edema [employer] alert awake oriented 3, no functional neurological deficit Chest x-ray showing no evidence of any acute infiltrate, but left lower lung zone haziness noted Assessment a condition: 60-year-old female with history of COPD, active smoking, schizophrenia, bipolar disease. Now admitted with acute exacerbation of COPD with the severe wheezing and rhonchi. Patient is on antibiotic Avelox, corticosteroids, broncho-dilator. Glucose monitoring. Patient was in the past refusing CAT scan, ENT evaluation, cardiology evaluation , and she was refusing all cancer for evaluation and treatment. Patient now admitted again with similar symptoms. We'll continue the broncho-dilators, corticosteroids. DVT and GI prophylaxis. Monitor the cardiac status and will follow the patient Present on Admission - Present on Admission Any Indicators Present on Admission: No History of DVT/PE: No History of Uncontrolled Diabetes: No Urinary Catheter: No Decubitus Ulcer Present: No Past Patient History - Infectious Disease Hx of Infectious Diseases: None - Past Medical History & Family History Past Medical History?: Yes - Past Social History Smoking Status: Heavy Smoker > 10 Cigarettes Daily - CARDIAC Hx Hypercholesterolemia: Yes Hx Hypertension: Yes - PULMONARY Hx Chronic Obstructive Pulmonary Disease (COPD): Yes Hx Emphysema: Yes Hx Pneumonia: Yes (2009) - NEUROLOGICAL Hx Migraine: Yes - HEENT Hx HEENT Problems: Yes Other/Comment: wear eyeglasses (bifocal) - RENAL Hx Chronic Kidney Disease: No - ENDOCRINE/METABOLIC Hx Endocrine Disorders: No - HEMATOLOGICAL/ONCOLOGICAL Hx Blood Disorders: No - INTEGUMENTARY Hx Dermatological Problems: No - MUSCULOSKELETAL/RHEUMATOLOGICAL Hx Falls: Yes - GASTROINTESTINAL Hx Gastrointestinal Disorders: No - GENITOURINARY/GYNECOLOGICAL Hx Genitourinary Disorders: No - PSYCHIATRIC Hx Anxiety: Yes Hx Depression: Yes Hx Schizophrenia: Yes Hx Substance Use: No - SURGICAL HISTORY Hx Surgeries: No - ANESTHESIA Hx Anesthesia: No Hx Anesthesia Reactions: No Hx Malignant Hyperthermia: No Meds Allergies/Adverse Reactions: Allergies Allergy/AdvReac Type Severity Reaction Status Date / Time Penicillins Allergy Verified 10/20/16 18:48 tetracycline Allergy Verified 10/20/16 18:48 Results - Vital Signs Recent Vital Signs: Last Vital Signs Temp 97.8 F 10/20/16 23:40 Pulse 95 H 10/20/16 23:40 Resp 20 10/20/16 23:40 BP 99/68 L 10/20/16 23:40 Pulse Ox 99 10/20/16 23:40 - Labs Result Diagrams: 10/20/16 19:38 10/20/16 19:38
[2016-10-21] MEDS: Albuterol-Ipratrop 3 mg / 0.5 (3 ml) UD INH SCH ×3 (07:33→19:36)
[2016-10-21] MEDS: Moxifloxacin IV 400mg/250ml NS 400 MG/250 ML BAG IVPB SCH (08:30)
--- NOTE | 2016-10-21 08:45 | RAD ---
PROCEDURE: CHEST RADIOGRAPH, 1 VIEW HISTORY: SOB COMPARISON: 09/13/2016. FINDINGS: LUNGS: The lungs are clear. PLEURA: No pneumothorax or pleural fluid seen. CARDIOVASCULAR: Normal. OSSEOUS STRUCTURES: No significant abnormalities. VISUALIZED UPPER ABDOMEN: Normal. OTHER FINDINGS: None. IMPRESSION: No active pulmonary disease.
[2016-10-21 08:46] LABS: CHLORIDE 101 mmol/L (98-107); SODIUM 137 mmol/L (132-148)
[2016-10-21 08:47] LABS: POTASSIUM 3.9 mmol/L (3.6-5.2)
[2016-10-21 08:49] LABS: ALB/GLOB RATIO 1.2 (1.0-2.1); ALKALINE PHOSPHATASE 95 U/L (38-126); ALT/SGPT 19 U/L (9-52); AST/SGOT 18 U/L (14-36); BILIRUBIN,TOTAL 0.5 mg/dL (0.2-1.3); BLOOD UREA NITROGEN 12 mg/dL (7-17); CARBON DIOXIDE 24 mmol/L (22-30); GFR AFRICAN-AMERICAN > 60; GLUCOSE,RANDOM 110 mg/dL (65-105); TOTAL PROTEIN 6.7 g/dL (6.3-8.3)
[2016-10-21 08:50] LABS: CALCIUM 9.6 mg/dl (8.6-10.4)
[2016-10-21] MEDS: MethylPREDNISolone 40 mg Vial IVP SCH ×2 (10:14→21:54)
[2016-10-21 12:00] LABS: BASO # 0.1 K/uL (0.0-0.2); EOS # 0.2 K/uL (0.0-0.7)
[2016-10-21 12:07] LABS: BASO % 0.9 % (0.0-2.0); EOS % 1.5 % (0.0-4.0); HEMATOCRIT 39.9 % (34.0-47.0); LYMPH # 2.1 K/uL (1.0-4.3); LYMPH % 16.1 % (20.0-40.0); MEAN CELL VOLUME 83.1 fL (81.0-99.0); MEAN CORPUSCULAR HGB CONC 32.5 g/dL (33.0-37.0); MEAN PLATELET VOLUME 8.3 fL (7.2-11.7); MONO # 1.3 K/uL (0.0-0.8); MONO % 9.8 % (0.0-10.0); RED CELL DISTRIBUTION WIDTH 14.8 % (11.5-14.5)
[2016-10-21] MEDS ORDERED: Albuterol-Ipratrop 3 mg / 0.5 (3 ml) UD INH STA (17:54)
[2016-10-21] MEDS ORDERED: Albuterol-Ipratrop 3 mg / 0.5 (3 ml) UD INH ONE (18:15)
--- NOTE | 2016-10-21 21:50 | CP.PCM.CON ---
History of Present Illness - History of Present Illness History of Present Illness: CC: Chest Pain HPI: 60 F with hx of heavy tobacco use, HTN, Obesity admitted for exertional chest pain Patient also has dyspnea Review of Systems - Constitutional Constitutional: Fatigue - EENT Ears: absent: Ear Pain Nose/Mouth/Throat: absent: Nasal Congestion - Cardiovascular Cardiovascular: Chest Pain, Chest Pain with Activity, Dyspnea on Exertion - Respiratory Respiratory: Dyspnea, Dyspnea on Exertion - Gastrointestinal Gastrointestinal: absent: Abdominal Pain - Musculoskeletal Musculoskeletal: absent: Arthralgias Past Patient History - Infectious Disease Hx of Infectious Diseases: None - Past Medical History & Family History Past Medical History?: Yes - Past Social History Smoking Status: Heavy Smoker > 10 Cigarettes Daily - CARDIAC Hx Hypercholesterolemia: Yes Hx Hypertension: Yes - PULMONARY Hx Chronic Obstructive Pulmonary Disease (COPD): Yes - NEUROLOGICAL Hx Migraine: Yes - HEENT Hx HEENT Problems: Yes Other/Comment: wear eyeglasses (bifocal) - RENAL Hx Chronic Kidney Disease: No - ENDOCRINE/METABOLIC Hx Endocrine Disorders: No - HEMATOLOGICAL/ONCOLOGICAL Hx Blood Disorders: No - INTEGUMENTARY Hx Dermatological Problems: No - MUSCULOSKELETAL/RHEUMATOLOGICAL Hx Arthritis: Yes - GASTROINTESTINAL Hx Gastrointestinal Disorders: No - GENITOURINARY/GYNECOLOGICAL Hx Genitourinary Disorders: No - PSYCHIATRIC Hx Anxiety: Yes Hx Depression: Yes Hx Schizophrenia: Yes Hx Substance Use: No - SURGICAL HISTORY Hx Surgeries: No - ANESTHESIA Hx Anesthesia: No Hx Anesthesia Reactions: No Hx Malignant Hyperthermia: No Meds Allergies/Adverse Reactions: Allergies Allergy/AdvReac Type Severity Reaction Status Date / Time Penicillins Allergy Verified 10/20/16 18:48 tetracycline Allergy Verified 10/20/16 18:48 - Medications Medications: Current Medications Acetaminophen (Tylenol 325mg Tab) 650 mg PO Q6 PRN PRN Reason: Pain, Mild (1-3) Albuterol/Ipratropium (Duoneb 3 Mg/0.5 Mg (3 Ml) Ud) 3 ml INH RQ6 [facility] Last Admin: 10/21/16 19:36 Dose: 3 ml Amlodipine Besylate (Norvasc) 10 mg PO DAILY [facility] Last Admin: 10/21/16 10:10 Dose: 10 mg Famotidine (Pepcid) 20 mg IVP BID [facility] Last Admin: 10/21/16 17:23 Dose: 20 mg Gabapentin (Neurontin) 100 mg PO TID [facility] Last Admin: 10/21/16 17:22 Dose: Not Given Heparin Sodium (Porcine) (Heparin) 5,000 units SC Q12 [facility] Last Admin: 10/21/16 10:14 Dose: 5,000 units Hydroxyzine HCl (Atarax) 25 mg PO Q6 PRN PRN Reason: Agitation Moxifloxacin HCl (Avelox Iv 400mg/250ml Ns) 400 mg in 250 mls @ 167 mls/hr IVPB Q24H [facility] Last Admin: 10/21/16 08:30 Dose: 167 mls/hr Meclizine HCl (Antivert) 12.5 mg PO TID [facility] Last Admin: 10/21/16 17:22 Dose: 12.5 mg Methylprednisolone (Solu-Medrol) 40 mg IVP Q12 [facility] Last Admin: 10/21/16 10:14 Dose: 40 mg Pneumococcal Polyvalent Vaccine (Pneumovax 23 Vaccine) 0.5 ml IM .ONCE ONE Stop: 10/23/16 10:01 Risperidone (Risperdal Tab) 1 mg PO HS [facility] Trazodone HCl (Desyrel) 50 mg PO HS [facility] Physical Exam - Head Exam Head Exam: ATRAUMATIC - Eye Exam Eye Exam: EOMI, Normal appearance, PERRL - ENT Exam ENT Exam: Mucous Membranes Moist - Neck Exam Neck exam: Positive for: Normal Inspection - Respiratory Exam Respiratory Exam: Decreased Breath Sounds - Cardiovascular Exam Cardiovascular Exam: REGULAR RHYTHM, +S1, +S2 - GI/Abdominal Exam GI & Abdominal Exam: Normal Bowel Sounds - Neurological Exam Neurological exam: Alert, CN II-XII Intact - Psychiatric Exam Psychiatric exam: Normal Mood - Skin Skin Exam: Warm Results - Vital Signs Recent Vital Signs: Last Vital Signs Temp 97.9 F 10/21/16 16:00 Pulse 109 H 10/21/16 17:30 Resp 22 10/21/16 16:00 BP 118/79 10/21/16 16:00 Pulse Ox 94 L 10/21/16 16:00 - Labs Result Diagrams: 10/21/16 11:48 10/21/16 08:22 Labs: Laboratory Results - last 24 hr 10/21/16 10/21/16 08:22 11:48 WBC 13.0 H RBC 4.80 Hgb 13.0 D Hct 39.9 MCV 83.1 MCH 27.0 MCHC 32.5 L RDW 14.8 H Plt Count 287 MPV 8.3 Neut % (Auto) 71.7 Lymph % (Auto) 16.1 L [place] % (Auto) 9.8 Eos % (Auto) 1.5 Baso % (Auto) 0.9 Neut # 9.3 H Lymph # 2.1 [place] # 1.3 H Eos # 0.2 Baso # 0.1 Sodium 137 Potassium 3.9 Chloride 101 Carbon Dioxide 24 Anion Gap 17 BUN 12 Creatinine 0.8 Est GFR ( Amer) > 60 Est GFR (Non-Af Amer) > 60 Random Glucose 110 H Calcium 9.6 Total Bilirubin 0.5 AST 18 ALT 19 Alkaline Phosphatase 95 Total Creatine Kinase 78 CK-MB (Mass) 2.46 Troponin I, Quant < 0.0120 Total Protein 6.7 Albumin 3.7 Globulin 3.0 Albumin/Globulin Ratio 1.2 Assessment & Plan - Assessment and Plan (Free Text) Assessment: 60 F with exertional dyspnea and chest pain Heavy tobacco use Obesity Not a good candidate for stress test Cardiac cath in am Trops: Negative ECHO: Normal EF D/w Patient
[2016-10-22] MEDS: Albuterol-Ipratrop 3 mg / 0.5 (3 ml) UD INH SCH ×4 (01:15→19:28)
[2016-10-22] MEDS: Moxifloxacin IV 400mg/250ml NS 400 MG/250 ML BAG IVPB SCH (05:47)
[2016-10-22] MEDS: MethylPREDNISolone 40 mg Vial IVP SCH ×2 (09:07→21:14)
--- NOTE | 2016-10-22 11:51 | CP.PCM.PN ---
Subjective - Date & Time of Evaluation Date of Evaluation: 10/22/16 Time of Evaluation: 11:50 - Subjective Subjective: Patient refused to undergo cardiac cath Not an ideal candidate for Lexiscan stress test due o active dyspnea Will continue to medically manage Review of Systems - Constitutional Constitutional: Fatigue - EENT Ears: absent: Ear Pain Nose/Mouth/Throat: absent: Nasal Congestion - Cardiovascular Cardiovascular: Chest Pain, Chest Pain with Activity, Dyspnea on Exertion - Respiratory Respiratory: Dyspnea, Dyspnea on Exertion - Gastrointestinal Gastrointestinal: absent: Abdominal Pain - Musculoskeletal Musculoskeletal: absent: Arthralgias Physical Exam - Head Exam Head Exam: ATRAUMATIC - Eye Exam Eye Exam: EOMI, Normal appearance, PERRL - ENT Exam ENT Exam: Mucous Membranes Moist - Neck Exam Neck exam: Positive for: Normal Inspection - Respiratory Exam Respiratory Exam: Decreased Breath Sounds - Cardiovascular Exam Cardiovascular Exam: REGULAR RHYTHM, +S1, +S2 - GI/Abdominal Exam GI & Abdominal Exam: Normal Bowel Sounds - Neurological Exam Neurological exam: Alert, CN II-XII Intact - Psychiatric Exam Psychiatric exam: Normal Mood - Skin Skin Exam: Warm Objective - Vital Signs/Intake and Output Vital Signs (last 24 hours): Temp Pulse Resp BP Pulse Ox 98.1 F 108 H 22 130/86 97 10/22/16 09:00 10/22/16 09:00 10/22/16 09:00 10/22/16 09:00 10/22/16 09:00 - Medications Medications: Current Medications Acetaminophen (Tylenol 325mg Tab) 650 mg PO Q6 PRN PRN Reason: Pain, Mild (1-3) Albuterol/Ipratropium (Duoneb 3 Mg/0.5 Mg (3 Ml) Ud) 3 ml INH RQ6 [facility] Last Admin: 10/22/16 07:25 Dose: 3 ml Amlodipine Besylate (Norvasc) 10 mg PO DAILY [facility] Last Admin: 10/22/16 09:06 Dose: 10 mg Famotidine (Pepcid) 20 mg IVP BID [facility] Last Admin: 10/22/16 09:07 Dose: 20 mg Gabapentin (Neurontin) 100 mg PO TID [facility] Last Admin: 10/21/16 17:22 Dose: Not Given Heparin Sodium (Porcine) (Heparin) 5,000 units SC Q12 [facility] Last Admin: 10/22/16 09:06 Dose: 5,000 units Hydroxyzine HCl (Atarax) 25 mg PO Q6 PRN PRN Reason: Agitation Last Admin: 10/22/16 08:58 Dose: 25 mg Moxifloxacin HCl (Avelox Iv 400mg/250ml Ns) 400 mg in 250 mls @ 167 mls/hr IVPB Q24H [facility] Last Admin: 10/22/16 05:47 Dose: 167 mls/hr Meclizine HCl (Antivert) 12.5 mg PO TID [facility] Last Admin: 10/22/16 09:05 Dose: 12.5 mg Methylprednisolone (Solu-Medrol) 40 mg IVP Q12 [facility] Last Admin: 10/22/16 09:07 Dose: 40 mg Pneumococcal Polyvalent Vaccine (Pneumovax 23 Vaccine) 0.5 ml IM .ONCE ONE Stop: 10/23/16 10:01 Risperidone (Risperdal Tab) 1 mg PO HS [facility] Last Admin: 10/21/16 22:00 Dose: Not Given Trazodone HCl (Desyrel) 50 mg PO [facility] Last Admin: 10/21/16 22:00 Dose: Not Given - Labs Labs: 10/21/16 11:48 10/21/16 08:22 PT 11.4 SECONDS (9.7-12.2) 10/20/16 19:38 INR 1.0 10/20/16 19:38 APTT 35 SECONDS (21-34) H 10/20/16 19:38 Assessment and Plan - Assessment and Plan (Free Text) Assessment: 60 F with exertional dyspnea and chest pain Heavy tobacco use Obesity Not a good candidate for stress test ECHO: Normal Ef Refusing Cath Medical mgt F/U with Dr. Cardenas as Out Patient I will sign off Please re consult if needed Thank you
--- NOTE | 2016-10-22 17:28 | CP.PCM.PN ---
Subjective - Date & Time of Evaluation Date of Evaluation: 10/22/16 Time of Evaluation: 07:50 - Subjective Subjective: Medicine Note- Hospitalist Service Patient was seen and examined at bedside. Patient reports that her breathing is better than on admission, but she feels like she is still wheezing. When asked about the cardiac cath, patient reports that she refused to have it done today. She says "I was told my EKG was okay so I don't want ANY procedure done on my heart". Patient states she only wants medications for her breathing. No events overnight per nursing. Objective - Vital Signs/Intake and Output Vital Signs (last 24 hours): Temp Pulse Resp BP Pulse Ox 98.1 F 109 H 20 128/75 97 10/22/16 16:00 10/22/16 16:00 10/22/16 16:00 10/22/16 16:00 10/22/16 16:00 Intake and Output: 10/22/16 10/22/16 06:59 18:59 Intake Total 550 Balance 550 - Medications Medications: Current Medications Acetaminophen (Tylenol 325mg Tab) 650 mg PO Q6 PRN PRN Reason: Pain, Mild (1-3) Albuterol/Ipratropium (Duoneb 3 Mg/0.5 Mg (3 Ml) Ud) 3 ml INH RQ6 [facility] Last Admin: 10/22/16 13:04 Dose: 3 ml Amlodipine Besylate (Norvasc) 10 mg PO DAILY [facility] Last Admin: 10/22/16 09:06 Dose: 10 mg Aspirin (Aspirin Chewable) 81 mg PO DAILY [facility] Famotidine (Pepcid) 20 mg IVP BID [facility] Last Admin: 10/22/16 09:07 Dose: 20 mg Gabapentin (Neurontin) 100 mg PO TID [facility] Last Admin: 10/22/16 13:22 Dose: Not Given Heparin Sodium (Porcine) (Heparin) 5,000 units SC Q12 [facility] Last Admin: 10/22/16 09:06 Dose: 5,000 units Hydroxyzine HCl (Atarax) 25 mg PO Q6 PRN PRN Reason: Agitation Last Admin: 10/22/16 08:58 Dose: 25 mg Moxifloxacin HCl (Avelox Iv 400mg/250ml Ns) 400 mg in 250 mls @ 167 mls/hr IVPB Q24H [facility] Last Admin: 10/22/16 05:47 Dose: 167 mls/hr Meclizine HCl (Antivert) 12.5 mg PO TID [facility] Last Admin: 10/22/16 13:21 Dose: 12.5 mg Methylprednisolone (Solu-Medrol) 40 mg IVP Q12 [facility] Last Admin: 10/22/16 09:07 Dose: 40 mg Pneumococcal Polyvalent Vaccine (Pneumovax 23 Vaccine) 0.5 ml IM .ONCE ONE Stop: 10/23/16 10:01 Risperidone (Risperdal Tab) [address] [facility] Last Admin: 10/21/16 22:00 Dose: Not Given Rosuvastatin Calcium (Crestor) [address] [facility] Trazodone HCl (Desyrel) [address] [facility] Last Admin: 10/21/16 22:00 Dose: Not Given - Labs Labs: 10/21/16 11:48 10/21/16 08:22 PT 11.4 SECONDS (9.7-12.2) 10/20/16 19:38 INR 1.0 10/20/16 19:38 APTT 35 SECONDS (21-34) H 10/20/16 19:38 - Constitutional Appears: Non-toxic, No Acute Distress - Head Exam Head Exam: ATRAUMATIC, NORMAL INSPECTION, NORMOCEPHALIC - Eye Exam Pupil Exam: NORMAL ACCOMODATION - ENT Exam ENT Exam: Mucous Membranes Moist - Respiratory Exam Respiratory Exam: Decreased Breath Sounds, Wheezes. absent: Prolonged Expiratory Phase, Rhonchi - Cardiovascular Exam Cardiovascular Exam: Tachycardia, REGULAR RHYTHM, +S1, +S2 - GI/Abdominal Exam GI & Abdominal Exam: Soft, Normal Bowel Sounds. absent: Tenderness, Diminished Bowel Sounds, Hernia, Hypoactive Bowel Sounds - Extremities Exam Extremities Exam: Normal Capillary Refill, Normal Inspection - Neurological Exam Neurological Exam: Alert, Awake, Oriented x3 - Psychiatric Exam Psychiatric exam: Normal Affect, Normal Mood - Skin Skin Exam: Dry, Intact, Normal Color, Warm Assessment and Plan - Assessment and Plan (Free Text) Assessment: COPD Exacerbation Increased Duoneb to Q4h [facility] Started on Advair 250/50 mcg IH Q12h Continue Solumedrol 40mg IVP Q12h Continue Avelox 400mg IVPB Q24h CXR from 10/20/16- no active disease Ordered PT to evaluate for home oxygen Chest Pain Romis negative x 2 Consult Cardio- Dr. Barnhart- patient refused cardiac cath this AM. Per Dr. Barnhart, echo looks okay. Medically manage for now with aspirin, statin and calcium channel jaydon started on Crestor 5mg PO HS and Asa 81mg PO Daily Continue Norvasc 10mg PO Daily Tachycardia Started on Cardizem CD 120mg PO Daily due to persistent tachycardia. Beta Jaydon was excluded due to the patient actively wheezing Bipolar Disorder Risperdal 1mg PO HS Trazodone 50mg PO HS Prophylactic Measure Pepcid 20mg IVP BID Heparin 5000U SC Q12h
[2016-10-22] MEDS: diltiaZEM 120 mg/24 Hours CD Cap PO SCH (18:05)
[2016-10-23] MEDS: Albuterol-Ipratrop 3 mg / 0.5 (3 ml) UD INH SCH ×5 (04:51→16:49)
[2016-10-23] MEDS: Moxifloxacin IV 400mg/250ml NS 400 MG/250 ML BAG IVPB SCH (06:26)
[2016-10-23 06:39] LABS: BASO % 0.1 % (0.0-2.0); HEMATOCRIT 38.6 % (34.0-47.0); LYMPH % 5.2 % (20.0-40.0); MEAN CELL VOLUME 83.5 fL (81.0-99.0); MEAN CORPUSCULAR HEMOGLOBIN 27.7 pg (27.0-31.0); MEAN CORPUSCULAR HGB CONC 33.2 g/dL (33.0-37.0); MEAN PLATELET VOLUME 7.9 fL (7.2-11.7); MONO # 0.6 K/uL (0.0-0.8); MONO % 3.5 % (0.0-10.0); PLATELET COUNT 281 K/uL (130-400); RED CELL DISTRIBUTION WIDTH 15.2 % (11.5-14.5); WHITE BLOOD COUNT 18.6 K/uL (4.8-10.8)
[2016-10-23 06:49] LABS: CHLORIDE 103 mmol/L (98-107)
[2016-10-23 06:50] LABS: POTASSIUM 4.4 mmol/L (3.6-5.2); SODIUM 139 mmol/L (132-148)
[2016-10-23 06:52] LABS: ALB/GLOB RATIO 1.2 (1.0-2.1); ALKALINE PHOSPHATASE 89 U/L (38-126); AST/SGOT 16 U/L (14-36); BILIRUBIN,TOTAL 0.3 mg/dL (0.2-1.3); BLOOD UREA NITROGEN 14 mg/dL (7-17); CARBON DIOXIDE 26 mmol/L (22-30); GFR AFRICAN-AMERICAN > 60; GLUCOSE,RANDOM 140 mg/dL (65-105); TOTAL PROTEIN 6.1 g/dL (6.3-8.3)
[2016-10-23 06:53] LABS: ALT/SGPT 20 U/L (9-52); CALCIUM 9.6 mg/dl (8.6-10.4)
[2016-10-23] MEDS: Fluticasone-Salmeterol 250-50mcg Diskus INH SCH ×2 (08:13→08:15)
[2016-10-23 08:38] LABS: NEUTROPHIL 88 % (50-75); TOTAL CELLS COUNTED 100
[2016-10-23] MEDS: diltiaZEM 120 mg/24 Hours CD Cap PO SCH ×2 (09:22→09:31)
[2016-10-23] MEDS: MethylPREDNISolone 40 mg Vial IVP SCH ×2 (09:23→21:54)
[2016-10-23] MEDS ORDERED: Pneumococcal 23-Valent Vaccine IM ONE (10:00)
--- NOTE | 2016-10-23 10:53 | CP.PCM.PN ---
Subjective - Date & Time of Evaluation Date of Evaluation: 10/23/16 Time of Evaluation: 10:40 - Subjective Subjective: Patient was seen and examined by me. She initially did not want to see me and asked me to get out however I explained that her PMD was temporarily not available and so she allowed me to talk to and examine her. She refused her Cardizem and also refused her Advair. Also she refused cardiac catherization as well. As of this morning when I asked her she says her breathing is still very short. She does think it is getting better however when I mentioned to her about the Advair she did not want to talk further about this. She reports she still has chest pain - however the area has now moved to her lower chest under her breath. Objective - Vital Signs/Intake and Output Vital Signs (last 24 hours): Temp Pulse Resp BP Pulse Ox 98 F 95 H 20 143/79 94 L 10/23/16 07:05 10/23/16 07:05 10/23/16 07:05 10/23/16 07:05 10/23/16 07:05 Intake and Output: 10/23/16 10/23/16 06:59 18:59 Intake Total 490 Balance 490 - Medications Medications: Current Medications Acetaminophen (Tylenol 325mg Tab) 650 mg PO Q6 PRN PRN Reason: Pain, Mild (1-3) Albuterol/Ipratropium (Duoneb 3 Mg/0.5 Mg (3 Ml) Ud) 3 ml INH RQ4 [facility] Last Admin: 10/23/16 08:13 Dose: 3 ml Amlodipine Besylate (Norvasc) 10 mg PO DAILY [facility] Last Admin: 10/23/16 09:23 Dose: 10 mg Aspirin (Aspirin Chewable) 81 mg PO DAILY [facility] Last Admin: 10/23/16 09:22 Dose: 81 mg Diltiazem HCl (Cardizem Cd) 120 mg PO DAILY [facility] Last Admin: 10/23/16 09:31 Dose: Not Given Famotidine (Pepcid) 20 mg IVP BID [facility] Last Admin: 10/23/16 09:23 Dose: 20 mg Gabapentin (Neurontin) 100 mg PO TID [facility] Last Admin: 10/23/16 09:22 Dose: 100 mg Heparin Sodium (Porcine) (Heparin) 5,000 units SC Q12 [facility] Last Admin: 10/23/16 09:23 Dose: 5,000 units Hydroxyzine HCl (Atarax) 25 mg PO Q6 PRN PRN Reason: Agitation Last Admin: 10/22/16 08:58 Dose: 25 mg Moxifloxacin HCl (Avelox Iv 400mg/250ml Ns) 400 mg in 250 mls @ 167 mls/hr IVPB Q24H [facility] Last Admin: 10/23/16 06:26 Dose: 167 mls/hr Meclizine HCl (Antivert) 12.5 mg PO TID [facility] Last Admin: 10/23/16 09:22 Dose: 12.5 mg Methylprednisolone (Solu-Medrol) 40 mg IVP Q12 [facility] Last Admin: 10/23/16 09:23 Dose: 40 mg Risperidone (Risperdal Tab) 1 mg PO HS [facility] Last Admin: 10/22/16 21:14 Dose: 1 mg Rosuvastatin Calcium (Crestor) 5 mg PO HS [facility] Last Admin: 10/22/16 21:13 Dose: 5 mg Fluticasone/Salmeterol (Advair Diskus 250/50) 1 puff INH RQ12 [facility] Last Admin: 10/23/16 08:15 Dose: Not Given Trazodone HCl (Desyrel) 50 mg PO HS [facility] Last Admin: 10/22/16 21:14 Dose: 50 mg - Labs Labs: 10/23/16 06:30 10/23/16 06:30 PT 11.4 SECONDS (9.7-12.2) 10/20/16 19:38 INR 1.0 10/20/16 19:38 APTT 35 SECONDS (21-34) H 10/20/16 19:38 - Constitutional Appears: No Acute Distress, Agitated, Chronically Ill - Head Exam Head Exam: NORMAL INSPECTION - Eye Exam Eye Exam: Normal appearance - ENT Exam ENT Exam: Mucous Membranes Moist - Respiratory Exam Respiratory Exam: Decreased Breath Sounds, Prolonged Expiratory Phase. absent: Wheezes Additional comments: Very distant breath sounds today. No wheezing at the time I examined her. Previous wheezing - GI/Abdominal Exam GI & Abdominal Exam: Soft, Normal Bowel Sounds - Neurological Exam Neurological Exam: Alert, Awake, Oriented x3 Neuro motor strength exam: Left Upper Extremity: 5, Right Upper Extremity: 5 - Psychiatric Exam Psychiatric exam: Agitated, Flat Affect - Skin Skin Exam: Dry, Normal Color, Warm Assessment and Plan - Assessment and Plan (Free Text) Assessment: COPD Exacerbation 10/23: Patient report doing better however still short of breath. We need to discuss with her again to use the Advair as well as she refused this. In the mean time continue the dounebulizers as well as the solumedrol 40 IV BID. There is a WBC of 18.6 this might be from the solumedrol however she is nevertheless of IV abx Aveolx. Blood cultures negative. Increased Duoneb to Q4h [facility] Started on Advair 250/50 mcg IH Q12h Continue Solumedrol 40mg IVP Q12h Continue Avelox 400mg IVPB Q24h CXR from 10/20/16- no active disease Ordered PT to evaluate for home oxygen Chest Pain 10/23: I asked her again about the cardiac catherization and she said she did not want this. Romis negative x 2 Consult Cardio- Dr. Barnhart- patient refused cardiac cath this AM. Per Dr. Barnhart, echo looks okay. Medically manage for now with aspirin, statin and calcium channel jaydon started on Crestor 5mg PO HS and Asa 81mg PO Daily Continue Norvasc 10mg PO Daily Tachycardia Started on Cardizem CD 120mg PO Daily due to persistent tachycardia. Beta Jaydon was excluded due to the patient actively wheezing Bipolar Disorder Risperdal 1mg PO HS Trazodone 50mg PO HS Prophylactic Measure Pepcid 20mg IVP BID Heparin 5000U SC Q12h
[2016-10-23] MEDS ORDERED: Metoprolol 1 mg/ml Inj IVP ONE (13:15)
[2016-10-23] MEDS ORDERED: Ipratropium 17 mcg/puff-200 puff/12.5 gm HFA Inh IH SCH (14:00)
--- NOTE | 2016-10-23 18:05 | CARD ---
APPROVED REPORT EKG Measurement Heart [id number] <Conclusion> Sinus tachycardia Otherwise normal ECG
--- NOTE | 2016-10-23 20:41 | CARD ---
APPROVED REPORT EXAM: Two-dimensional and M-mode echocardiogram with Doppler and color Doppler. Other Information Quality : GoodRhythm : INDICATION Dyspnea Chest Pain COPD M-Mode DIMENSIONS Left Atrium (MM)3.30 (2.5-4.0cm)IVSd1.21 (0.7-1.1cm) Aortic Root2.57 (2.2-3.7cm)LVDd4.16 (4.0-5.6cm) Aortic Cusp Exc.1.74 (1.5-2.0cm)PWd0.83 (0.7-1.1cm) FS (%) 58 %LVDs1.77 (2.0-3.8cm) LVEF (%)88 (>50%) Mitral Valve MV E Pzzvxjem56.5cm/sMV A Aqcjpluq07.9cm/sE/A ratio0.8 TDI E/Lateral E'0.0E/Medial E'0.0 Tricuspid Valve TR Peak [id number]/sTR Peak Gr.50foQbPAEM23vsDb LEFT VENTRICLE The left ventricle is normal size. There is normal left ventricular wall thickness. The left ventricular function is normal. The left ventricular ejection fraction is within the normal range. There is normal LV segmental wall motion. Transmitral Doppler flow pattern is Grade I-abnormal relaxation pattern. RIGHT VENTRICLE The right ventricle is normal size. There is normal right ventricular wall thickness. The right ventricular systolic function is normal. ATRIA The left atrium size is normal. The right atrium size is normal. The interatrial septum is intact with no evidence for an atrial septal defect. AORTIC VALVE The aortic valve is mildly sclerotic. No aortic regurgitation is present. There is no aortic valvular stenosis. There is no aortic valvular vegetation. MITRAL VALVE The mitral valve is mildly thickened but opens well. There is no evidence of mitral valve prolapse. There is no mitral valve stenosis. There is no mitral valve regurgitation noted. TRICUSPID VALVE The tricuspid valve is normal in structure. There is mild tricuspid regurgitation. There is no tricuspid valve prolapse or vegetation. There is no tricuspid valve stenosis. PULMONIC VALVE The pulmonary valve is normal in structure. There is mild pulmonic valvular regurgitation. There is no pulmonic valvular stenosis. GREAT VESSELS The aortic root is normal in size. The ascending aorta is normal in size. the ivc is underfilled PERICARDIAL EFFUSION The pericardium appears normal. There is no pleural effusion. <Conclusion> The left ventricular ejection fraction is within the normal range. Transmitral Doppler flow pattern is Grade I-abnormal relaxation pattern. The aortic valve is mildly sclerotic. There is mild tricuspid regurgitation. the ivc is underfilled LV IS HYPERDYNAMIC.
[2016-10-24] MEDS: Moxifloxacin IV 400mg/250ml NS 400 MG/250 ML BAG IVPB SCH (06:24)
[2016-10-24] MEDS: Fluticasone-Salmeterol 250-50mcg Diskus INH SCH ×2 (07:45→19:15)
[2016-10-24 09:08] LABS: BASO % 0.1 % (0.0-2.0); HEMATOCRIT 42.1 % (34.0-47.0); LYMPH # 0.9 K/uL (1.0-4.3); LYMPH % 5.1 % (20.0-40.0); MEAN CELL VOLUME 84.2 fL (81.0-99.0); MEAN CORPUSCULAR HEMOGLOBIN 27.2 pg (27.0-31.0); MEAN CORPUSCULAR HGB CONC 32.2 g/dL (33.0-37.0); MEAN PLATELET VOLUME 7.9 fL (7.2-11.7); MONO # 0.8 K/uL (0.0-0.8); MONO % 4.5 % (0.0-10.0); PLATELET COUNT 323 K/uL (130-400); RED CELL DISTRIBUTION WIDTH 14.9 % (11.5-14.5); WHITE BLOOD COUNT 18.3 K/uL (4.8-10.8)
[2016-10-24] MEDS: MethylPREDNISolone 40 mg Vial IVP SCH ×2 (09:24→22:12)
[2016-10-24 09:45] LABS: ALB/GLOB RATIO 1.4 (1.0-2.1); ALKALINE PHOSPHATASE 95 U/L (38-126); ALT/SGPT 37 U/L (9-52); AST/SGOT 28 U/L (14-36); BILIRUBIN,TOTAL 0.2 mg/dL (0.2-1.3); BLOOD UREA NITROGEN 16 mg/dL (7-17); CALCIUM 9.4 mg/dl (8.6-10.4); CARBON DIOXIDE 24 mmol/L (22-30); CHLORIDE 101 mmol/L (98-107); GFR AFRICAN-AMERICAN > 60; GLUCOSE,RANDOM 182 mg/dL (65-105); POTASSIUM 4.6 mmol/L (3.6-5.2); SODIUM 136 mmol/L (132-148)
[2016-10-24 10:41] LABS: NEUTROPHIL 89 % (50-75); TOTAL CELLS COUNTED 100
--- NOTE | 2016-10-24 16:26 | CP.PCM.PN ---
<Abdirahman Gaona - Last Filed: 10/24/16 16:23> Subjective - Date & Time of Evaluation Date of Evaluation: 10/24/16 Time of Evaluation: 16:23 - Subjective Subjective: PGY1 Note for Dr. Granger HPI: Patient seen and examined at bedside. States she was sleeping last night with the BiPAP on until the hose fell off. She said it was helping her sleep and thinks it works better than the nasal cannula. I talked to Respiratory and said they will place the BiPAP back on. Currently the patient states she is wheezing. No other complaints at this time. Objective - Vital Signs/Intake and Output Vital Signs (last 24 hours): Temp Pulse Resp BP Pulse Ox 98.1 F 99 H 20 123/63 96 10/24/16 08:13 10/24/16 15:53 10/24/16 08:13 10/24/16 08:13 10/24/16 08:13 Intake and Output: 10/24/16 10/24/16 06:59 18:59 Intake Total 490 Balance 490 - Medications Medications: Current Medications Acetaminophen (Tylenol 325mg Tab) 650 mg PO Q6 PRN PRN Reason: Pain, Mild (1-3) Amlodipine Besylate (Norvasc) 5 mg PO DAILY [facility] Last Admin: 10/24/16 09:18 Dose: 5 mg Aspirin (Aspirin Chewable) 81 mg PO DAILY [facility] Last Admin: 10/24/16 09:18 Dose: 81 mg Diltiazem HCl (Cardizem) 30 mg PO QID [facility] Last Admin: 10/24/16 13:34 Dose: 30 mg Famotidine (Pepcid) 20 mg IVP BID [facility] Last Admin: 10/24/16 09:24 Dose: 20 mg Gabapentin (Neurontin) 100 mg PO TID [facility] Last Admin: 10/24/16 13:35 Dose: Not Given Hydroxyzine HCl (Atarax) 25 mg PO Q6 PRN PRN Reason: Agitation Last Admin: 10/22/16 08:58 Dose: 25 mg Moxifloxacin HCl (Avelox Iv 400mg/250ml Ns) 400 mg in 250 mls @ 167 mls/hr IVPB Q24H [facility] Last Admin: 10/24/16 06:24 Dose: 167 mls/hr Ipratropium [place] (Atrovent Hfa) 2 puff IH RQ6 [facility] Meclizine HCl (Antivert) 12.5 mg PO TID [facility] Last Admin: 10/24/16 13:34 Dose: 12.5 mg Methylprednisolone (Solu-Medrol) 40 mg IVP Q12 [facility] Last Admin: 10/24/16 09:24 Dose: 40 mg Risperidone (Risperdal Tab) 1 mg PO [facility] Last Admin: 10/23/16 21:53 Dose: 1 mg Rosuvastatin Calcium (Crestor) 5 mg PO [facility] Last Admin: 10/23/16 21:53 Dose: 5 mg Fluticasone/Salmeterol (Advair Diskus 250/50) 1 puff INH RQ12 [facility] Last Admin: 10/24/16 07:45 Dose: 1 puff Trazodone HCl (Desyrel) 50 mg PO [facility] Last Admin: 10/23/16 21:54 Dose: 50 mg - Labs Labs: 10/24/16 08:41 10/24/16 08:41 PT 11.4 SECONDS (9.7-12.2) 10/20/16 19:38 INR 1.0 10/20/16 19:38 APTT 35 SECONDS (21-34) H 10/20/16 19:38 - Constitutional Appears: Well, Non-toxic, No Acute Distress - Head Exam Head Exam: ATRAUMATIC, NORMAL INSPECTION, NORMOCEPHALIC - ENT Exam ENT Exam: Mucous Membranes Moist - Respiratory Exam Respiratory Exam: Wheezes (expiratory) - Cardiovascular Exam Cardiovascular Exam: REGULAR RHYTHM - GI/Abdominal Exam GI & Abdominal Exam: Soft. absent: Distended, Tenderness - Neurological Exam Neurological Exam: Alert, Awake, Oriented x3 - Psychiatric Exam Additional comments: pressured speech - Skin Skin Exam: Dry, Intact, Normal Color, Warm Assessment and Plan - Assessment and Plan (Free Text) Assessment: COPD Exacerbation * Blood cultures negative * Duoneb to Q4h [facility] * Solumedrol 40mg IVP Q12h * Avelox 400mg IVPB Q24h * CXR (10/20/16) - No active disease * PT to evaluate for home oxygen * BiPAP Chest Pain * Romis negative * Cardio ([place]) * Refused cardiac cath * Medically manage - aspirin, statin and calcium channel jess * Crestor 5mg PO HS * Asa 81mg PO Daily * Norvasc 10mg PO Daily Tachycardia * Cardizem 30mg Q6 Bipolar Disorder * Risperdal 1mg PO HS * Trazodone 50mg PO HS PPX * Pepcid 20mg IVP BID * Heparin 5000U SC Q12h <Terrance Granger - Last Filed: 10/24/16 18:33> Objective - Vital Signs/Intake and Output Vital Signs (last 24 hours): Temp Pulse Resp BP Pulse Ox 98.3 F 107 H 20 124/84 96 10/24/16 17:04 10/24/16 17:04 10/24/16 17:04 10/24/16 17:04 10/24/16 17:04 Intake and Output: 10/24/16 10/24/16 06:59 18:59 Intake Total 490 Balance 490 - Medications Medications: Current Medications Acetaminophen (Tylenol 325mg Tab) 650 mg PO Q6 PRN PRN Reason: Pain, Mild (1-3) Amlodipine Besylate (Norvasc) 5 mg PO DAILY [facility] Last Admin: 10/24/16 09:18 Dose: 5 mg Aspirin (Aspirin Chewable) 81 mg PO DAILY [facility] Last Admin: 10/24/16 09:18 Dose: 81 mg Diltiazem HCl (Cardizem) 30 mg PO QID [facility] Last Admin: 10/24/16 17:38 Dose: 30 mg Famotidine (Pepcid) 20 mg IVP BID [facility] Last Admin: 10/24/16 17:38 Dose: 20 mg Gabapentin (Neurontin) 100 mg PO TID [facility] Last Admin: 10/24/16 17:36 Dose: Not Given Heparin Sodium (Porcine) (Heparin) 5,000 units SC Q8 [facility] Hydroxyzine HCl (Atarax) 25 mg PO Q6 PRN PRN Reason: Agitation Last Admin: 10/22/16 08:58 Dose: 25 mg Moxifloxacin HCl (Avelox Iv 400mg/250ml Ns) 400 mg in 250 mls @ 167 mls/hr IVPB Q24H [facility] Last Admin: 10/24/16 06:24 Dose: 167 mls/hr Ipratropium [place] (Atrovent Hfa) 2 puff IH RQ6 [facility] Meclizine HCl (Antivert) 12.5 mg PO TID [facility] Last Admin: 10/24/16 17:38 Dose: 12.5 mg Methylprednisolone (Solu-Medrol) 40 mg IVP Q12 [facility] Last Admin: 10/24/16 09:24 Dose: 40 mg Risperidone (Risperdal Tab) 1 mg PO [facility] Last Admin: 10/23/16 21:53 Dose: 1 mg Rosuvastatin Calcium (Crestor) 5 mg PO [facility] Last Admin: 10/23/16 21:53 Dose: 5 mg Fluticasone/Salmeterol (Advair Diskus 250/50) 1 puff INH RQ12 [facility] Last Admin: 10/24/16 07:45 Dose: 1 puff Trazodone HCl (Desyrel) 50 mg PO [facility] Last Admin: 10/23/16 21:54 Dose: 50 mg - Labs Labs: 10/24/16 08:41 10/24/16 08:41 PT 11.4 SECONDS (9.7-12.2) 10/20/16 19:38 INR 1.0 10/20/16 19:38 APTT 35 SECONDS (21-34) H 10/20/16 19:38 Attending/Attestation - Attestation I have personally seen and examined this patient.: Yes I have fully participated in the care of the patient.: Yes I have reviewed all pertinent clinical information, including history, physical exam and plan: Yes Notes (Text): 10/24/16 18:26 Hospitalist Service Covering for Dr. Nora Rey. Patient was seen and examined at 10 AM 10/24/16 669 A Upon FULL ROS: "Bad coughing fit last night" Wheezing Last bowel movement was yesterday 10/23/16 (normally it is everyother day) NO chest pain/palpitations Left upper back pain comes and goes "I don't want any more tests" "I just want my bronchitis to get better and leave" In addition to the exam above: Respiratory: diffuse expiratory wheezing present on auscultation Ext: would not allow examination of the left foot. However, right foot/leg had strong pulse/no edema/and severely long curved toenails with onychomycosis Assessments: 1). COPD Exacerbation: will perform 6 minute walk tomorrow 10/25/16 with pre and post O2 Saturation off of oxygen 2). Hx Chest Pain: declined Cardiac Catheterization with Dr. Barnhart. Echo is normal as per Dr. Barnhart documentation. Continue ASA, Statin, and CCB as per Dr. Barnhart 3). Tachycardia: improved 4). Hx Bipolar Disorder/Schizophrenia 5). Hx HTN 6). Hx HLD 7). Leukocytosis: likely secondary to the steroid being used to treat the COPD Exacerbation. No fevers Terrance Granger D.O.
[2016-10-25] MEDS: Moxifloxacin IV 400mg/250ml NS 400 MG/250 ML BAG IVPB SCH ×2 (06:34→08:42)
[2016-10-25 07:40] LABS: BASO % 0.1 % (0.0-2.0); HEMATOCRIT 42.9 % (34.0-47.0); LYMPH # 1.2 K/uL (1.0-4.3); LYMPH % 7.5 % (20.0-40.0); MEAN CELL VOLUME 83.8 fL (81.0-99.0); MEAN CORPUSCULAR HEMOGLOBIN 27.1 pg (27.0-31.0); MEAN CORPUSCULAR HGB CONC 32.3 g/dL (33.0-37.0); MONO % 6.3 % (0.0-10.0); PLATELET COUNT 297 K/uL (130-400); RED CELL DISTRIBUTION WIDTH 15.1 % (11.5-14.5); WHITE BLOOD COUNT 15.6 K/uL (4.8-10.8)
[2016-10-25 07:46] LABS: CHLORIDE 100 mmol/L (98-107); SODIUM 135 mmol/L (132-148)
[2016-10-25 07:48] LABS: BILIRUBIN,TOTAL 0.4 mg/dL (0.2-1.3); GFR AFRICAN-AMERICAN > 60
[2016-10-25 07:49] LABS: ALB/GLOB RATIO 1.3 (1.0-2.1); ALKALINE PHOSPHATASE 101 U/L (38-126); ALT/SGPT 65 U/L (9-52); AST/SGOT 47 U/L (14-36); BLOOD UREA NITROGEN 18 mg/dL (7-17); CALCIUM 9.3 mg/dl (8.6-10.4); CARBON DIOXIDE 25 mmol/L (22-30); GLUCOSE,RANDOM 172 mg/dL (65-105)
[2016-10-25] MEDS: Fluticasone-Salmeterol 250-50mcg Diskus INH SCH ×2 (07:55→19:48)
[2016-10-25 08:47] LABS: NEUTROPHIL 87 % (50-75); TOTAL CELLS COUNTED 100
[2016-10-25] MEDS: MethylPREDNISolone 40 mg Vial IVP SCH ×2 (09:27→22:41)
--- NOTE | 2016-10-25 09:49 | CP.PCM.PN ---
<Samy Gray - Last Filed: 10/25/16 15:40> Subjective - Date & Time of Evaluation Date of Evaluation: 10/25/16 Time of Evaluation: 07:50 - Subjective Subjective: PGY-[address] Terrance Granger Patient seen and examined at bedside. Patient reports wheezing and requesting her antibiotics. Patient denies SOB or cough at this time. Patient denies fevers , chills, headache, dizziness, chest pain, abdominal pain, dysuria. Objective - Vital Signs/Intake and Output Vital Signs (last 24 hours): Temp Pulse Resp BP Pulse Ox 98.1 F 105 H 20 177/86 H 94 L 10/25/16 08:34 10/25/16 08:34 10/25/16 08:34 10/25/16 08:34 10/25/16 08:34 Intake and Output: 10/25/16 10/25/16 06:59 18:59 Intake Total 240 Balance 240 - Medications Medications: Current Medications Acetaminophen (Tylenol 325mg Tab) 650 mg PO Q6 PRN PRN Reason: Pain, Mild (1-3) Amlodipine Besylate (Norvasc) 5 mg PO DAILY [facility] Last Admin: 10/25/16 09:26 Dose: 5 mg Aspirin (Aspirin Chewable) 81 mg PO DAILY [facility] Last Admin: 10/25/16 09:26 Dose: 81 mg Diltiazem HCl (Cardizem) 30 mg PO QID [facility] Last Admin: 10/25/16 09:26 Dose: 30 mg Famotidine (Pepcid) 20 mg IVP BID [facility] Last Admin: 10/25/16 09:27 Dose: 20 mg Gabapentin (Neurontin) 100 mg PO TID [facility] Last Admin: 10/24/16 17:36 Dose: Not Given Heparin Sodium (Porcine) (Heparin) 5,000 units SC Q8 [facility] Last Admin: 10/25/16 06:15 Dose: Not Given Hydroxyzine HCl (Atarax) 25 mg PO Q6 PRN PRN Reason: Agitation Last Admin: 10/25/16 09:26 Dose: 25 mg Moxifloxacin HCl (Avelox Iv 400mg/250ml Ns) 400 mg in 250 mls @ 167 mls/hr IVPB Q24H [facility] Last Admin: 10/25/16 08:42 Dose: 167 mls/hr Ipratropium [place] (Atrovent Hfa) 2 puff IH RQ6 [facility] Meclizine HCl (Antivert) 12.5 mg PO TID [facility] Last Admin: 10/25/16 09:26 Dose: 12.5 mg Methylprednisolone (Solu-Medrol) 40 mg IVP Q12 [facility] Last Admin: 10/25/16 09:27 Dose: 40 mg Risperidone (Risperdal Tab) 1 mg PO [facility] Last Admin: 10/24/16 22:12 Dose: 1 mg Rosuvastatin Calcium (Crestor) 5 mg PO [facility] Last Admin: 10/24/16 22:11 Dose: 5 mg Fluticasone/Salmeterol (Advair Diskus 250/50) 1 puff INH RQ12 [facility] Last Admin: 10/25/16 07:55 Dose: Not Given Trazodone HCl (Desyrel) 50 mg PO [facility] Last Admin: 10/24/16 22:12 Dose: 50 mg - Labs Labs: 10/25/16 07:20 10/25/16 07:20 PT 11.4 SECONDS (9.7-12.2) 10/20/16 19:38 INR 1.0 10/20/16 19:38 APTT 35 SECONDS (21-34) H 10/20/16 19:38 - Constitutional Appears: No Acute Distress - Head Exam Head Exam: ATRAUMATIC, NORMAL INSPECTION, NORMOCEPHALIC - Eye Exam Eye Exam: EOMI, PERRL - ENT Exam ENT Exam: Mucous Membranes Moist - Respiratory Exam Respiratory Exam: Wheezes (bilaterally auscultated on the front and back). absent: Rales, Rhonchi - Cardiovascular Exam Cardiovascular Exam: REGULAR RHYTHM, +S1, +S2 - GI/Abdominal Exam GI & Abdominal Exam: Soft, Normal Bowel Sounds. absent: Tenderness Assessment and Plan - Assessment and Plan (Free Text) Plan: COPD Exacerbation * Blood cultures negative * Duoneb to Q4h [facility] * Solumedrol 40mg IVP Q12h * Avelox 400mg IVPB Q24h * CXR (10/20/16) - No active disease * PT to evaluate for home oxygen * BiPAP Chest Pain * Troponins negative * Cardio ([place]) * Refused cardiac cath * Medically manage - aspirin, statin and calcium channel jess * Crestor 5mg PO HS * Asa 81mg PO Daily * Norvasc 10mg PO Daily Tachycardia * Cardizem 30mg Q6 Bipolar Disorder * Risperdal 1mg PO HS * Trazodone 50mg PO HS Prophylactic Measure * Pepcid 20mg IVP BID * Heparin 5000U SC Q12h 10/25: Patient refusing BiPAP, Telemetry, and Neurontin. Patient has been periodically refusing medications and treatments during this hospital admission. Case DW Dr. Terrance Gray PGY-1 <Terrance Granger J - Last Filed: 10/25/16 20:04> Objective - Vital Signs/Intake and Output Vital Signs (last 24 hours): Temp Pulse Resp BP Pulse Ox 99.0 F 115 H 22 133/72 96 10/25/16 15:13 10/25/16 15:13 10/25/16 15:13 10/25/16 15:13 10/25/16 15:13 Intake and Output: 10/25/16 10/26/16 18:59 06:59 Intake Total 450 Balance 450 - Medications Medications: Current Medications Acetaminophen (Tylenol 325mg Tab) 650 mg PO Q6 PRN PRN Reason: Pain, Mild (1-3) Amlodipine Besylate (Norvasc) 5 mg PO DAILY [facility] Last Admin: 10/25/16 09:26 Dose: 5 mg Aspirin (Aspirin Chewable) 81 mg PO DAILY [facility] Last Admin: 10/25/16 09:26 Dose: 81 mg Diltiazem HCl (Cardizem) 30 mg PO QID [facility] Last Admin: 10/25/16 18:22 Dose: 30 mg Famotidine (Pepcid) 20 mg IVP BID [facility] Last Admin: 10/25/16 18:23 Dose: 20 mg Gabapentin (Neurontin) 100 mg PO TID [facility] Last Admin: 10/25/16 18:09 Dose: Not Given Heparin Sodium (Porcine) (Heparin) 5,000 units SC Q8 [facility] Last Admin: 10/25/16 14:00 Dose: Not Given Hydroxyzine HCl (Atarax) 25 mg PO Q6 PRN PRN Reason: Agitation Last Admin: 10/25/16 09:26 Dose: 25 mg Moxifloxacin HCl (Avelox Iv 400mg/250ml Ns) 400 mg in 250 mls @ 167 mls/hr IVPB Q24H [facility] Last Admin: 10/25/16 08:42 Dose: 167 mls/hr Ipratropium [place] (Atrovent Hfa) 2 puff IH RQ6 [facility] Meclizine HCl (Antivert) 12.5 mg PO TID [facility] Last Admin: 10/25/16 18:22 Dose: 12.5 mg Methylprednisolone (Solu-Medrol) 40 mg IVP Q12 [facility] Last Admin: 10/25/16 09:27 Dose: 40 mg Risperidone (Risperdal Tab) 1 mg PO [facility] Last Admin: 10/24/16 22:12 Dose: 1 mg Rosuvastatin Calcium (Crestor) 5 mg PO [facility] Last Admin: 10/24/16 22:11 Dose: 5 mg Fluticasone/Salmeterol (Advair Diskus 250/50) 1 puff INH RQ12 [facility] Last Admin: 10/25/16 19:48 Dose: Not Given Trazodone HCl (Desyrel) 50 mg PO [facility] Last Admin: 10/24/16 22:12 Dose: 50 mg - Labs Labs: 10/25/16 07:20 10/25/16 07:20 PT 11.4 SECONDS (9.7-12.2) 10/20/16 19:38 INR 1.0 10/20/16 19:38 APTT 35 SECONDS (21-34) H 10/20/16 19:38 Attending/Attestation - Attestation I have personally seen and examined this patient.: Yes I have fully participated in the care of the patient.: Yes I have reviewed all pertinent clinical information, including history, physical exam and plan: Yes Notes (Text): 10/25/16 20:00 Patient was seen and examined at 3:10 PM 10/25/16 ROS: Cough with white sputum production still present However no longer wheezing In addition to the exam above: Respiratory: scattered expiratory wheezing improved from yesterday 10/24/16 Assessments: 1). COPD Exacerbation: will perform 6 minute walk tomorrow 10/26/16 with pre and post O2 Saturation off of oxygen 2). Hx Chest Pain: declined Cardiac Catheterization with Dr. Barnhart. Echo is normal as per Dr. Barnhart documentation. Continue ASA, Statin, and CCB as per Dr. Barnhart 3). Tachycardia: low 100s 4). Hx Bipolar Disorder/Schizophrenia 5). Hx HTN 6). Hx HLD 7). Leukocytosis: likely secondary to the steroid being used to treat the COPD Exacerbation. No fevers Patient declining her BiPAP, Telemetry,and Neurontin Patient very aggressive during exam and questioning. She stated that she was not leaving until Dr. Rey saw her. I explained to her again today that Hospitalist Service was covering for Dr. Rey and that we will be discharging her once we felt that she was ready to be discharged. Terrance Granger D.O.
[2016-10-26] MEDS: Moxifloxacin IV 400mg/250ml NS 400 MG/250 ML BAG IVPB SCH (06:34)
[2016-10-26 07:38] LABS: BASO % 0.3 % (0.0-2.0); HEMATOCRIT 41.4 % (34.0-47.0); LYMPH % 6.6 % (20.0-40.0); MEAN CELL VOLUME 83.7 fL (81.0-99.0); MEAN CORPUSCULAR HEMOGLOBIN 27.1 pg (27.0-31.0); MEAN CORPUSCULAR HGB CONC 32.4 g/dL (33.0-37.0); MEAN PLATELET VOLUME 8.2 fL (7.2-11.7); MONO # 1.1 K/uL (0.0-0.8); MONO % 7.2 % (0.0-10.0); NRBC % 0.1 % (0.0-2.0); PLATELET COUNT 268 K/uL (130-400); RED CELL DISTRIBUTION WIDTH 14.7 % (11.5-14.5); WHITE BLOOD COUNT 15.5 K/uL (4.8-10.8)
[2016-10-26] MEDS: Fluticasone-Salmeterol 250-50mcg Diskus INH SCH ×2 (07:48→20:12)
[2016-10-26 07:53] LABS: CHLORIDE 98 mmol/L (98-107)
[2016-10-26 07:54] LABS: POTASSIUM 4.1 mmol/L (3.6-5.2); SODIUM 136 mmol/L (132-148)
[2016-10-26 07:56] LABS: ALB/GLOB RATIO 1.2 (1.0-2.1); ALKALINE PHOSPHATASE 113 U/L (38-126); AST/SGOT 149 U/L (14-36); BILIRUBIN,TOTAL 0.5 mg/dL (0.2-1.3); BLOOD UREA NITROGEN 21 mg/dL (7-17); CARBON DIOXIDE 30 mmol/L (22-30); GFR AFRICAN-AMERICAN > 60; TOTAL PROTEIN 5.5 g/dL (6.3-8.3)
[2016-10-26 07:57] LABS: ALT/SGPT 222 U/L (9-52); CALCIUM 8.8 mg/dl (8.6-10.4); GLUCOSE,RANDOM 154 mg/dL (65-105); PHOSPHOROUS 3.4 mg/dL (2.5-4.5)
[2016-10-26 08:27] LABS: NEUTROPHIL 84 % (50-75); TOTAL CELLS COUNTED 100
[2016-10-26] MEDS: MethylPREDNISolone 40 mg Vial IVP SCH ×2 (09:57→22:14)
--- NOTE | 2016-10-26 13:30 | CP.PCM.PN ---
<Samy Gray - Last Filed: 10/26/16 19:46> Subjective - Date & Time of Evaluation Date of Evaluation: 10/26/16 Time of Evaluation: 07:20 - Subjective Subjective: PGY-[address] Terrance Granger Patient seen and examined at bedside. Patient refused to answer questions stating "I'm tired, I'm sleeping." However, patient did allow me to examine her. Patient continues to refuse telemetry, BiPAP, and intermittent medications. Patient is known to also intermittently refuse vitals. Objective - Vital Signs/Intake and Output Vital Signs (last 24 hours): Temp Pulse Resp BP Pulse Ox 98.5 F 105 H 22 156/87 H 94 L 10/26/16 09:15 10/26/16 09:15 10/26/16 09:15 10/26/16 09:15 10/26/16 09:15 Intake and Output: 10/26/16 10/26/16 06:59 18:59 Intake Total 100 Balance 100 - Medications Medications: Current Medications Acetaminophen (Tylenol 325mg Tab) 650 mg PO Q6 PRN PRN Reason: Pain, Mild (1-3) Amlodipine Besylate (Norvasc) 5 mg PO DAILY [facility] Last Admin: 10/26/16 09:17 Dose: 5 mg Aspirin (Aspirin Chewable) 81 mg PO DAILY [facility] Last Admin: 10/26/16 09:17 Dose: 81 mg Diltiazem HCl (Cardizem) 30 mg PO QID [facility] Last Admin: 10/26/16 09:17 Dose: 30 mg Famotidine (Pepcid) 20 mg IVP BID [facility] Last Admin: 10/26/16 09:36 Dose: 20 mg Gabapentin (Neurontin) 100 mg PO TID [facility] Last Admin: 10/26/16 09:35 Dose: Not Given Heparin Sodium (Porcine) (Heparin) 5,000 units SC Q8 [facility] Last Admin: 10/26/16 06:24 Dose: Not Given Hydroxyzine HCl (Atarax) 25 mg PO Q6 PRN PRN Reason: Agitation Last Admin: 10/25/16 09:26 Dose: 25 mg Moxifloxacin HCl (Avelox Iv 400mg/250ml Ns) 400 mg in 250 mls @ 167 mls/hr IVPB Q24H [facility] Last Admin: 10/26/16 06:34 Dose: Not Given Ipratropium [place] (Atrovent Hfa) 2 puff IH RQ6 [facility] Meclizine HCl (Antivert) 12.5 mg PO TID [facility] Last Admin: 10/26/16 09:17 Dose: 12.5 mg Methylprednisolone (Solu-Medrol) 40 mg IVP Q12 [facility] Stop: 10/26/16 22:00 Last Admin: 10/26/16 09:57 Dose: 40 mg Prednisone (Prednisone Tab) 50 mg PO ONCE ONE Stop: 10/27/16 10:01 Risperidone (Risperdal Tab) 1 mg PO HS [facility] Last Admin: 10/25/16 22:41 Dose: 1 mg Rosuvastatin Calcium (Crestor) 5 mg PO HS [facility] Last Admin: 10/25/16 22:40 Dose: 5 mg Fluticasone/Salmeterol (Advair Diskus 250/50) 1 puff INH RQ12 [facility] Last Admin: 10/26/16 07:48 Dose: Not Given Trazodone HCl (Desyrel) [address] [facility] Last Admin: 10/25/16 22:40 Dose: 50 mg - Labs Labs: 10/26/16 06:39 10/26/16 06:39 PT 11.4 SECONDS (9.7-12.2) 10/20/16 19:38 INR 1.0 10/20/16 19:38 APTT 35 SECONDS (21-34) H 10/20/16 19:38 - Constitutional Appears: No Acute Distress - Head Exam Head Exam: ATRAUMATIC, NORMAL INSPECTION, NORMOCEPHALIC - Eye Exam Eye Exam: EOMI, PERRL - ENT Exam ENT Exam: Mucous Membranes Moist - Respiratory Exam Respiratory Exam: absent: Rales, Rhonchi, Wheezes Additional comments: Coarse breath sounds. Wheezing was not appreciated on exam. - Cardiovascular Exam Cardiovascular Exam: Tachycardia, REGULAR RHYTHM, +S1, +S2 - GI/Abdominal Exam GI & Abdominal Exam: Soft, Normal Bowel Sounds. absent: Tenderness - Extremities Exam Extremities Exam: absent: Pedal Edema, Tenderness - Neurological Exam Neurological Exam: Alert, Awake, Oriented x3 - Skin Skin Exam: Dry, Intact, Normal Color, Warm Assessment and Plan - Assessment and Plan (Free Text) Plan: COPD Exacerbation * Blood cultures negative * Duoneb to Q4h [facility] * Solumedrol 40mg IVP Q12h * Avelox 400mg IVPB Q24h * CXR (10/20/16) - No active disease * PT to evaluate for home oxygen * BiPAP Chest Pain * Troponins negative * Cardio ([place]) * Refused cardiac cath * Medically manage - aspirin, statin and calcium channel jess * Crestor 5mg PO HS * Asa 81mg PO Daily * Norvasc 10mg PO Daily Tachycardia * Cardizem 30mg Q6 Bipolar Disorder * Risperdal 1mg PO HS * Trazodone 50mg PO HS Prophylactic Measure * Pepcid 20mg IVP BID * Heparin 5000U SC Q12h 10/25: Patient refusing BiPAP, Telemetry, and Neurontin. Patient has been periodically refusing medications and treatments during this hospital admission. 10/26: Spoken with niece about patient's medications. Patient normally takes Invega injectible once a month, but her psychiatrist Dr. Goncalves is on vacation. I spoke with pharmacy who told me that we do not have it on formulary. I explained this to the niece. Case DW Dr. Sera Gray PGY1 <Terrance Granger - Last Filed: 10/26/16 20:03> Objective - Vital Signs/Intake and Output Vital Signs (last 24 hours): Temp Pulse Resp BP Pulse Ox 98.7 F 107 H 20 146/83 100 10/26/16 15:36 10/26/16 15:36 10/26/16 15:36 10/26/16 15:36 10/26/16 15:36 Intake and Output: 10/26/16 10/27/16 18:59 06:59 Intake Total 450 Balance 450 - Medications Medications: Current Medications Acetaminophen (Tylenol 325mg Tab) 650 mg PO Q6 PRN PRN Reason: Pain, Mild (1-3) Amlodipine Besylate (Norvasc) 5 mg PO DAILY [facility] Last Admin: 10/26/16 09:17 Dose: 5 mg Aspirin (Aspirin Chewable) 81 mg PO DAILY [facility] Last Admin: 10/26/16 09:17 Dose: 81 mg Diltiazem HCl (Cardizem) 30 mg PO QID [facility] Last Admin: 10/26/16 18:22 Dose: 30 mg Famotidine (Pepcid) 20 mg IVP BID [facility] Last Admin: 10/26/16 18:22 Dose: 20 mg Gabapentin (Neurontin) 100 mg PO TID [facility] Last Admin: 10/26/16 18:00 Dose: Not Given Heparin Sodium (Porcine) (Heparin) 5,000 units SC Q8 [facility] Last Admin: 10/26/16 14:40 Dose: Not Given Hydroxyzine HCl (Atarax) 25 mg PO Q6 PRN PRN Reason: Agitation Last Admin: 10/25/16 09:26 Dose: 25 mg Moxifloxacin HCl (Avelox Iv 400mg/250ml Ns) 400 mg in 250 mls @ 167 mls/hr IVPB Q24H [facility] Last Admin: 10/26/16 06:34 Dose: Not Given Ipratropium [place] (Atrovent Hfa) 2 puff IH RQ6 [facility] Meclizine HCl (Antivert) 12.5 mg PO TID [facility] Last Admin: 10/26/16 18:23 Dose: 12.5 mg Methylprednisolone (Solu-Medrol) 40 mg IVP Q12 [facility] Stop: 10/26/16 22:00 Last Admin: 10/26/16 09:57 Dose: 40 mg Prednisone (Prednisone Tab) 50 mg PO ONCE ONE Stop: 10/27/16 10:01 Risperidone (Risperdal Tab) 1 mg PO HS [facility] Last Admin: 10/25/16 22:41 Dose: 1 mg Rosuvastatin Calcium (Crestor) 5 mg PO HS [facility] Last Admin: 10/25/16 22:40 Dose: 5 mg Fluticasone/Salmeterol (Advair Diskus 250/50) 1 puff INH RQ12 [facility] Last Admin: 10/26/16 07:48 Dose: Not Given Trazodone HCl (Desyrel) 50 mg PO HS [facility] Last Admin: 10/25/16 22:40 Dose: 50 mg - Labs Labs: 10/26/16 06:39 10/26/16 06:39 PT 11.4 SECONDS (9.7-12.2) 10/20/16 19:38 INR 1.0 10/20/16 19:38 APTT 35 SECONDS (21-34) H 10/20/16 19:38 Attending/Attestation - Attestation I have personally seen and examined this patient.: Yes I have fully participated in the care of the patient.: Yes I have reviewed all pertinent clinical information, including history, physical exam and plan: Yes Notes (Text): 10/26/16 20:00 Patient was seen and examined at 12:30 PM 10/26/16 ROS: Cough with white sputum production still present However no longer wheezing In addition to the exam above: Respiratory: no longer with expiratory wheezing Assessments: 1). COPD Exacerbation: refused to perform 6 minute walk with pre and post O2 Saturation off of oxygen. Discontinue the IV Solumedrol and started Prednisone taper with Prednisone 50 mg PO once ordered for 10/27/16 at 10 AM (then 40 on , 30 on 10/29/16, 20 on 10/30/16, and then 10 on 10/31/16) 2). Hx Chest Pain: declined Cardiac Catheterization with Dr. Barnhart. Echo is normal as per Dr. Barnhart documentation. Continue ASA, Statin, and CCB as per Dr. Barnhart 3). Tachycardia: low 100s 4). Hx Bipolar Disorder/Schizophrenia 5). Hx HTN 6). Hx HLD 7). Leukocytosis: likely secondary to the steroid being used to treat the COPD Exacerbation. No fevers Patient declining her BiPAP, Telemetry,and Neurontin Patient continues to be aggresive during time of exam. Terrance Granger D.O.
[2016-10-27] MEDS: Fluticasone-Salmeterol 250-50mcg Diskus INH SCH ×2 (07:35→19:18)
[2016-10-27] MEDS: Moxifloxacin IV 400mg/250ml NS 400 MG/250 ML BAG IVPB SCH (07:47)
--- NOTE | 2016-10-27 11:06 | CP.PCM.PN ---
<Samy Gray - Last Filed: 10/27/16 17:36> Subjective - Date & Time of Evaluation Date of Evaluation: 10/27/16 Time of Evaluation: 07:40 - Subjective Subjective: PGY-[address] Terrance Granger Patient seen and examined at bedside. Patient refuses to speak with me saying "I 'm trying to sleep." Patient has allowed me to examine her but ROS unable to ascertain due to patient refusal. Objective - Vital Signs/Intake and Output Vital Signs (last 24 hours): Temp Pulse Resp BP Pulse Ox 98.6 F 112 H 20 127/77 94 L 10/27/16 08:30 10/27/16 08:30 10/27/16 08:30 10/27/16 08:30 10/27/16 08:30 - Medications Medications: Current Medications Acetaminophen (Tylenol 325mg Tab) 650 mg PO Q6 PRN PRN Reason: Pain, Mild (1-3) Amlodipine Besylate (Norvasc) 5 mg PO DAILY [facility] Last Admin: 10/27/16 09:24 Dose: 5 mg Aspirin (Aspirin Chewable) 81 mg PO DAILY [facility] Last Admin: 10/27/16 09:24 Dose: 81 mg Diltiazem HCl (Cardizem) 30 mg PO QID [facility] Last Admin: 10/27/16 09:24 Dose: 30 mg Famotidine (Pepcid) 20 mg IVP BID [facility] Last Admin: 10/27/16 10:42 Dose: Not Given Gabapentin (Neurontin) 100 mg PO TID [facility] Last Admin: 10/27/16 09:24 Dose: 100 mg Heparin Sodium (Porcine) (Heparin) 5,000 units SC Q8 [facility] Last Admin: 10/27/16 07:48 Dose: Not Given Hydroxyzine HCl (Atarax) 25 mg PO Q6 PRN PRN Reason: Agitation Last Admin: 10/25/16 09:26 Dose: 25 mg Moxifloxacin HCl (Avelox Iv 400mg/250ml Ns) 400 mg in 250 mls @ 167 mls/hr IVPB Q24H [facility] Last Admin: 10/27/16 07:47 Dose: Not Given Ipratropium [place] (Atrovent Hfa) 2 puff IH RQ6 [facility] Meclizine HCl (Antivert) 12.5 mg PO TID [facility] Last Admin: 10/27/16 09:24 Dose: 12.5 mg Risperidone (Risperdal Tab) 1 mg PO [facility] Last Admin: 10/26/16 22:14 Dose: 1 mg Rosuvastatin Calcium (Crestor) 5 mg PO [facility] Last Admin: 10/26/16 22:13 Dose: 5 mg Fluticasone/Salmeterol (Advair Diskus 250/50) 1 puff INH RQ12 [facility] Last Admin: 10/27/16 07:35 Dose: Not Given Trazodone HCl (Desyrel) 50 mg PO [facility] Last Admin: 10/26/16 22:13 Dose: 50 mg - Labs Labs: 10/26/16 06:39 10/26/16 06:39 PT 11.4 SECONDS (9.7-12.2) 10/20/16 19:38 INR 1.0 10/20/16 19:38 APTT 35 SECONDS (21-34) H 10/20/16 19:38 - Constitutional Appears: No Acute Distress - Head Exam Head Exam: ATRAUMATIC, NORMAL INSPECTION, NORMOCEPHALIC - Eye Exam Eye Exam: EOMI, PERRL - ENT Exam ENT Exam: Mucous Membranes Dry - Respiratory Exam Respiratory Exam: Wheezes (right sided inspiratory and expiratory wheezing). absent: Rales, Rhonchi - Cardiovascular Exam Cardiovascular Exam: REGULAR RHYTHM, +S1, +S2 - GI/Abdominal Exam GI & Abdominal Exam: Soft, Normal Bowel Sounds. absent: Tenderness - Neurological Exam Neurological Exam: Alert, Awake, Oriented x3 - Skin Skin Exam: Dry, Intact, Normal Color, Warm Assessment and Plan - Assessment and Plan (Free Text) Plan: COPD Exacerbation * Blood cultures negative * Duoneb to Q4h [facility] * Solumedrol 40mg IVP Q12h * Avelox 400mg IVPB Q24h * CXR (10/20/16) - No active disease * PT to evaluate for home oxygen * BiPAP Chest Pain * Troponins negative * Cardio ([place]) * Refused cardiac cath * Medically manage - aspirin, statin and calcium channel jess * Crestor 5mg PO HS * Asa 81mg PO Daily * Norvasc 10mg PO Daily Tachycardia * Cardizem 30mg Q6 Bipolar Disorder * Risperdal 1mg PO HS * Trazodone 50mg PO HS Prophylactic Measure * Pepcid 20mg IVP BID * Heparin 5000U SC Q12h 10/25: Patient refusing BiPAP, Telemetry, and Neurontin. Patient has been periodically refusing medications and treatments during this hospital admission. 10/26: Spoken with niece about patient's medications. Patient normally takes Invega injectible once a month, but her psychiatrist Dr. Goncalves is on vacation. I spoke with pharmacy who told me that we do not have it on formulary. I explained this to the niece. Case DW Dr. Sera Gray PGY1 <Terrance Granger - Last Filed: 10/27/16 19:27> Objective - Vital Signs/Intake and Output Vital Signs (last 24 hours): Temp Pulse Resp BP Pulse Ox 98.3 F 102 H 22 129/77 100 10/27/16 16:00 10/27/16 16:00 10/27/16 16:00 10/27/16 16:00 10/27/16 16:00 Intake and Output: 10/27/16 10/28/16 18:59 06:59 Intake Total 480 Balance 480 - Medications Medications: Current Medications Acetaminophen (Tylenol 325mg Tab) 650 mg PO Q6 PRN PRN Reason: Pain, Mild (1-3) Amlodipine Besylate (Norvasc) 5 mg PO DAILY [facility] Last Admin: 10/27/16 09:24 Dose: 5 mg Aspirin (Aspirin Chewable) 81 mg PO DAILY [facility] Last Admin: 10/27/16 09:24 Dose: 81 mg Diltiazem HCl (Cardizem) 30 mg PO QID [facility] Last Admin: 10/27/16 18:07 Dose: 30 mg Famotidine (Pepcid) 20 mg PO BID [facility] Last Admin: 10/27/16 18:05 Dose: 20 mg Gabapentin (Neurontin) 100 mg PO TID [facility] Last Admin: 10/27/16 13:32 Dose: 100 mg Heparin Sodium (Porcine) (Heparin) 5,000 units SC Q8 [facility] Last Admin: 10/27/16 14:17 Dose: Not Given Hydroxyzine HCl (Atarax) 25 mg PO Q6 PRN PRN Reason: Agitation Last Admin: 10/25/16 09:26 Dose: 25 mg Moxifloxacin HCl (Avelox Iv 400mg/250ml Ns) 400 mg in 250 mls @ 167 mls/hr IVPB Q24H [facility] Last Admin: 10/27/16 07:47 Dose: Not Given Ipratropium [place] (Atrovent Hfa) 2 puff IH RQ6 [facility] Meclizine HCl (Antivert) 12.5 mg PO TID [facility] Last Admin: 10/27/16 18:04 Dose: 12.5 mg Prednisone (Prednisone Tab) 40 mg PO ONCE ONE Stop: 10/28/16 10:01 Prednisone (Prednisone Tab) 30 mg PO ONCE ONE Stop: 10/29/16 10:01 Prednisone (Prednisone Tab) 20 mg PO ONCE ONE Stop: 10/30/16 10:01 Prednisone (Prednisone Tab) 10 mg PO ONCE ONE Stop: 10/31/16 10:01 Risperidone (Risperdal Tab) 1 mg PO HS [facility] Last Admin: 10/26/16 22:14 Dose: 1 mg Rosuvastatin Calcium (Crestor) 5 mg PO [facility] Last Admin: 10/26/16 22:13 Dose: 5 mg Fluticasone/Salmeterol (Advair Diskus 250/50) 1 puff INH RQ12 [facility] Last Admin: 10/27/16 19:18 Dose: Not Given Trazodone HCl (Desyrel) 50 mg PO [facility] Last Admin: 10/26/16 22:13 Dose: 50 mg - Labs Labs: 10/27/16 13:40 10/27/16 13:40 PT 11.4 SECONDS (9.7-12.2) 10/20/16 19:38 INR 1.0 10/20/16 19:38 APTT 35 SECONDS (21-34) H 10/20/16 19:38 Attending/Attestation - Attestation I have personally seen and examined this patient.: Yes I have fully participated in the care of the patient.: Yes I have reviewed all pertinent clinical information, including history, physical exam and plan: Yes Notes (Text): 10/27/16 19:25 Patient was seen and examined at 4:30 PM 10/27/16 ROS: Cough with white sputum production still present However no longer wheezing In addition to the exam above: Respiratory: no longer with expiratory wheezing Assessments: 1). COPD Exacerbation: refused to perform 6 minute walk with pre and post O2 Saturation off of oxygen. Discontinue the IV Solumedrol and started Prednisone taper with Prednisone 50 mg PO once ordered for 10/27/16 at 10 AM (then 40 on , 30 on 10/29/16, 20 on 10/30/16, and then 10 on 10/31/16) 2). Hx Chest Pain: declined Cardiac Catheterization with Dr. Barnhart. Echo is normal as per Dr. Barnhart documentation. Continue ASA, Statin, and CCB as per Dr. Barnhart 3). Tachycardia: low 100s 4). Hx Bipolar Disorder/Schizophrenia 5). Hx HTN 6). Hx HLD 7). Leukocytosis: likely secondary to the steroid being used to treat the COPD Exacerbation. No fevers Refused 6 minute walk with pre and post Oxygen Saturation. Will transfer service back to Dr. Rey on 10/28/16. Terrance Granger D.O.
[2016-10-27 13:45] LABS: BASO # 0.1 K/uL (0.0-0.2); BASO % 0.2 % (0.0-2.0); HEMATOCRIT 42.7 % (34.0-47.0); LYMPH # 1.4 K/uL (1.0-4.3); LYMPH % 6.1 % (20.0-40.0); MEAN CELL VOLUME 84.1 fL (81.0-99.0); MEAN CORPUSCULAR HEMOGLOBIN 27.4 pg (27.0-31.0); MEAN CORPUSCULAR HGB CONC 32.6 g/dL (33.0-37.0); MONO # 1.6 K/uL (0.0-0.8); MONO % 6.8 % (0.0-10.0); NRBC % 0.1 % (0.0-2.0); PLATELET COUNT 282 K/uL (130-400); RED CELL DISTRIBUTION WIDTH 15.2 % (11.5-14.5); WHITE BLOOD COUNT 23.1 K/uL (4.8-10.8)
[2016-10-27 14:12] LABS: NEUTROPHIL 88 % (50-75); TOTAL CELLS COUNTED 100
[2016-10-27 14:19] LABS: CHLORIDE 94 mmol/L (98-107); POTASSIUM 4.5 mmol/L (3.6-5.2); SODIUM 135 mmol/L (132-148)
[2016-10-27 14:21] LABS: ALB/GLOB RATIO 1.2 (1.0-2.1); ALKALINE PHOSPHATASE 117 U/L (38-126); ALT/SGPT 167 U/L (9-52); AST/SGOT 63 U/L (14-36); BILIRUBIN,TOTAL 0.5 mg/dL (0.2-1.3); BLOOD UREA NITROGEN 24 mg/dL (7-17); CARBON DIOXIDE 27 mmol/L (22-30); GFR AFRICAN-AMERICAN > 60
[2016-10-27 14:22] LABS: CALCIUM 9.4 mg/dl (8.6-10.4); GLUCOSE,RANDOM 210 mg/dL (65-105); MAGNESIUM 2.1 mg/dL (1.6-2.3); PHOSPHOROUS 3.5 mg/dL (2.5-4.5)
[2016-10-28] MEDS: Moxifloxacin IV 400mg/250ml NS 400 MG/250 ML BAG IVPB SCH (06:46)
[2016-10-28] MEDS: Fluticasone-Salmeterol 250-50mcg Diskus INH SCH ×2 (07:18→19:15)
[2016-10-28 07:49] LABS: BASO % 0.2 % (0.0-2.0); EOS # 0.2 K/uL (0.0-0.7); EOS % 0.8 % (0.0-4.0); HEMATOCRIT 44.7 % (34.0-47.0); LYMPH # 4.9 K/uL (1.0-4.3); LYMPH % 21.3 % (20.0-40.0); MEAN CELL VOLUME 83.7 fL (81.0-99.0); MEAN CORPUSCULAR HGB CONC 32.3 g/dL (33.0-37.0); MEAN PLATELET VOLUME 7.6 fL (7.2-11.7); MONO # 1.7 K/uL (0.0-0.8); MONO % 7.3 % (0.0-10.0); NRBC % 0.1 % (0.0-2.0); RED CELL DISTRIBUTION WIDTH 14.6 % (11.5-14.5); WHITE BLOOD COUNT 23.2 K/uL (4.8-10.8)
[2016-10-28 08:09] LABS: CHLORIDE 97 mmol/L (98-107)
[2016-10-28 08:10] LABS: POTASSIUM 4.5 mmol/L (3.6-5.2); SODIUM 137 mmol/L (132-148)
[2016-10-28 08:12] LABS: ALB/GLOB RATIO 1.2 (1.0-2.1); ALKALINE PHOSPHATASE 101 U/L (38-126); ALT/SGPT 139 U/L (9-52); AST/SGOT 45 U/L (14-36); BILIRUBIN,TOTAL 0.5 mg/dL (0.2-1.3); BLOOD UREA NITROGEN 22 mg/dL (7-17); CARBON DIOXIDE 32 mmol/L (22-30); GFR AFRICAN-AMERICAN > 60; GLUCOSE,RANDOM 80 mg/dL (65-105); TOTAL PROTEIN 5.7 g/dL (6.3-8.3)
[2016-10-28 08:13] LABS: CALCIUM 8.8 mg/dl (8.6-10.4); MAGNESIUM 2.2 mg/dL (1.6-2.3); PHOSPHOROUS 3.6 mg/dL (2.5-4.5)
--- NOTE | 2016-10-28 08:27 | CP.PCM.PCO ---
Physician Communication Note - Physician Communication Note Physician Communication Note: Please see above.
[2016-10-28] MEDS: Vancomycin 125 MG/5 ML SOLN (ORAL/RECTAL) PO SCH ×2 (18:07→22:00)
[2016-10-28] MEDS: Lactobacillus Acidophilus 500 MU Cap PO SCH (18:09)
--- NOTE | 2016-10-28 18:46 | CP.PCM.PN ---
Subjective - Date & Time of Evaluation Date of Evaluation: 10/28/16 Time of Evaluation: 18:44 - Subjective Subjective: Appreciate the hospitalist helpful for this patient. Patient service was transferred made today. Patient is still having episodes of chest tightness coughing. Patient is also having recurrent episodes of diarrhea, since yesterday. Diarrhea mostly watery in nature. Abdominal pain noted Vital signs reviewed No neck vein distention noted Chest bilateral wheezing noted CVS regular heart sound, no murmur noted Abdomen soft, nontender. Extremities no pedal edema [employer] alert awake oriented 3, no functional neurological deficit Patient's labs reviewed Assessment and recommendation: 60-year-old female with a high risk for heart disease, chronic smoker, possible COPD, schizophrenia. I spoke to the patient today. Patient is currently agreeing for cardiac intervention. In opinion patient is to high risk for cardiac disease. I spoke to the marine welder, patient is not able to do the exercise test, and chemical stress test also not possible given the wheezing. Currently patient is agreeing for angiogram, spoke to the marine welder. Possibly will be done tomorrow if the patient agrees, I also spoke to the patient's niece We'll keep the patient nothing by mouth. Antihypertensives, anticholesterol, smoking cessation advised will follow the patient Objective - Vital Signs/Intake and Output Vital Signs (last 24 hours): Temp Pulse Resp BP Pulse Ox 98.1 F 74 20 122/72 99 10/28/16 16:00 10/28/16 18:02 10/28/16 16:00 10/28/16 18:02 10/28/16 16:00 Intake and Output: 10/28/16 10/28/16 06:59 18:59 Intake Total 400 Balance 400 - Medications Medications: Current Medications Acetaminophen (Tylenol 325mg Tab) 650 mg PO Q6 PRN PRN Reason: Pain, Mild (1-3) Amlodipine Besylate (Norvasc) 5 mg PO DAILY [facility] Last Admin: 10/28/16 09:36 Dose: 5 mg Aspirin (Aspirin Chewable) 81 mg PO DAILY [facility] Last Admin: 10/28/16 09:36 Dose: 81 mg Diltiazem HCl (Cardizem) 30 mg PO QID [facility] Last Admin: 10/28/16 18:02 Dose: 30 mg Famotidine (Pepcid) 20 mg PO BID [facility] Last Admin: 10/28/16 18:07 Dose: Not Given Gabapentin (Neurontin) 100 mg PO TID [facility] Last Admin: 10/28/16 18:04 Dose: Not Given Heparin Sodium (Porcine) (Heparin) 5,000 units SC Q8 [facility] Last Admin: 10/28/16 13:05 Dose: Not Given Hydroxyzine HCl (Atarax) 25 mg PO Q6 PRN PRN Reason: Agitation Last Admin: 10/25/16 09:26 Dose: 25 mg Ipratropium [place] (Atrovent Hfa) 2 puff IH RQ6 [facility] Lactobacillus Acidophilus (Bacid Acidophilus) 1 cap PO BID [facility] Last Admin: 10/28/16 18:09 Dose: 1 cap Meclizine HCl (Antivert) 12.5 mg PO TID [facility] Last Admin: 10/28/16 17:58 Dose: 12.5 mg Prednisone (Prednisone Tab) 30 mg PO ONCE ONE Stop: 10/29/16 10:01 Prednisone (Prednisone Tab) 20 mg PO ONCE ONE Stop: 10/30/16 10:01 Prednisone (Prednisone Tab) 10 mg PO ONCE ONE Stop: 10/31/16 10:01 Risperidone (Risperdal Tab) 1 mg PO HS [facility] Last Admin: 10/27/16 23:40 Dose: 1 mg Rosuvastatin Calcium (Crestor) 5 mg PO HS [facility] Last Admin: 10/27/16 23:39 Dose: 5 mg Fluticasone/Salmeterol (Advair Diskus 250/50) 1 puff INH RQ12 [facility] Last Admin: 10/28/16 07:18 Dose: Not Given Trazodone HCl (Desyrel) 50 mg PO HS [facility] Last Admin: 10/27/16 23:39 Dose: 50 mg Vancomycin HCl (Vancocin (Oral Or Rectal Use)) 125 mg PO QID [facility] Last Admin: 10/28/16 18:07 Dose: 125 mg - Labs Labs: 10/28/16 07:17 10/28/16 07:17 PT 11.4 SECONDS (9.7-12.2) 10/20/16 19:38 INR 1.0 10/20/16 19:38 APTT 35 SECONDS (21-34) H 10/20/16 19:38
--- NOTE | 2016-10-28 23:35 | CP.PCM.PN ---
Subjective - Date & Time of Evaluation Date of Evaluation: 10/28/16 Time of Evaluation: 18:15 - Subjective Subjective: Patient scheduled for cath tomorrow Objective - Vital Signs/Intake and Output Vital Signs (last 24 hours): Temp Pulse Resp BP Pulse Ox 98.1 F 74 20 122/72 99 10/28/16 16:00 10/28/16 18:02 10/28/16 16:00 10/28/16 18:02 10/28/16 16:00 Intake and Output: 10/28/16 10/29/16 18:59 06:59 Intake Total 400 480 Balance 400 480 - Medications Medications: Current Medications Acetaminophen (Tylenol 325mg Tab) 650 mg PO Q6 PRN PRN Reason: Pain, Mild (1-3) Amlodipine Besylate (Norvasc) 5 mg PO DAILY [facility] Last Admin: 10/28/16 09:36 Dose: 5 mg Aspirin (Aspirin Chewable) 81 mg PO DAILY [facility] Last Admin: 10/28/16 09:36 Dose: 81 mg Diltiazem HCl (Cardizem) 30 mg PO QID [facility] Last Admin: 10/28/16 18:02 Dose: 30 mg Famotidine (Pepcid) 20 mg PO BID [facility] Last Admin: 10/28/16 18:07 Dose: Not Given Gabapentin (Neurontin) 100 mg PO TID [facility] Last Admin: 10/28/16 18:04 Dose: Not Given Heparin Sodium (Porcine) (Heparin) 5,000 units SC Q8 [facility] Last Admin: 10/28/16 13:05 Dose: Not Given Hydroxyzine HCl (Atarax) 25 mg PO Q6 PRN PRN Reason: Agitation Last Admin: 10/25/16 09:26 Dose: 25 mg Ipratropium [place] (Atrovent Hfa) 2 puff IH RQ6 [facility] Lactobacillus Acidophilus (Bacid Acidophilus) 1 cap PO BID [facility] Last Admin: 10/28/16 18:09 Dose: 1 cap Meclizine HCl (Antivert) 12.5 mg PO TID [facility] Last Admin: 10/28/16 17:58 Dose: 12.5 mg Prednisone (Prednisone Tab) 30 mg PO ONCE ONE Stop: 10/29/16 10:01 Prednisone (Prednisone Tab) 20 mg PO ONCE ONE Stop: 10/30/16 10:01 Prednisone (Prednisone Tab) 10 mg PO ONCE ONE Stop: 10/31/16 10:01 Risperidone (Risperdal Tab) 1 mg PO HS [facility] Last Admin: 10/27/16 23:40 Dose: 1 mg Rosuvastatin Calcium (Crestor) 5 mg PO HS [facility] Last Admin: 10/27/16 23:39 Dose: 5 mg Fluticasone/Salmeterol (Advair Diskus 250/50) 1 puff INH RQ12 [facility] Last Admin: 10/28/16 19:15 Dose: Not Given Trazodone HCl (Desyrel) 50 mg PO HS [facility] Last Admin: 10/27/16 23:39 Dose: 50 mg Vancomycin HCl (Vancocin (Oral Or Rectal Use)) 125 mg PO QID [facility] Last Admin: 10/28/16 18:07 Dose: 125 mg - Labs Labs: 10/28/16 07:17 10/28/16 07:17 PT 11.4 SECONDS (9.7-12.2) 10/20/16 19:38 INR 1.0 10/20/16 19:38 APTT 35 SECONDS (21-34) H 10/20/16 19:38
[2016-10-29] MEDS: Ipratropium 17 mcg/puff-200 puff/12.5 gm HFA Inh IH SCH ×3 (02:21→20:33)
[2016-10-29] MEDS: Fluticasone-Salmeterol 250-50mcg Diskus INH SCH ×2 (07:22→20:33)
[2016-10-29 07:24] LABS: BASO # 0.1 K/uL (0.0-0.2); BASO % 0.5 % (0.0-2.0); EOS # 0.2 K/uL (0.0-0.7); HEMATOCRIT 43.5 % (34.0-47.0); LYMPH # 5.4 K/uL (1.0-4.3); LYMPH % 21.6 % (20.0-40.0); MEAN CELL VOLUME 83.9 fL (81.0-99.0); MEAN CORPUSCULAR HEMOGLOBIN 27.2 pg (27.0-31.0); MEAN CORPUSCULAR HGB CONC 32.5 g/dL (33.0-37.0); MEAN PLATELET VOLUME 7.9 fL (7.2-11.7); MONO # 1.8 K/uL (0.0-0.8); MONO % 7.2 % (0.0-10.0); NRBC % 0.1 % (0.0-2.0); RED CELL DISTRIBUTION WIDTH 15.1 % (11.5-14.5); WHITE BLOOD COUNT 25.1 K/uL (4.8-10.8)
[2016-10-29 07:59] LABS: CHLORIDE 95 mmol/L (98-107); POTASSIUM 4.4 mmol/L (3.6-5.2); SODIUM 137 mmol/L (132-148)
[2016-10-29 08:01] LABS: GFR AFRICAN-AMERICAN > 60
[2016-10-29 08:02] LABS: ALB/GLOB RATIO 1.2 (1.0-2.1); ALKALINE PHOSPHATASE 92 U/L (38-126); ALT/SGPT 97 U/L (9-52); AST/SGOT 28 U/L (14-36); BILIRUBIN,TOTAL 0.4 mg/dL (0.2-1.3); BLOOD UREA NITROGEN 26 mg/dL (7-17); CALCIUM 9.5 mg/dl (8.6-10.4); CARBON DIOXIDE 33 mmol/L (22-30); GLUCOSE,RANDOM 80 mg/dL (65-105); MAGNESIUM 2.1 mg/dL (1.6-2.3); PHOSPHOROUS 4.8 mg/dL (2.5-4.5); TOTAL PROTEIN 5.6 g/dL (6.3-8.3)
[2016-10-29] MEDS: Lactobacillus Acidophilus 500 MU Cap PO SCH ×2 (09:43→17:15)
[2016-10-29] MEDS: Vancomycin 125 MG/5 ML SOLN (ORAL/RECTAL) PO SCH ×4 (09:43→22:03)
--- NOTE | 2016-10-29 21:13 | CP.PCM.PN ---
Subjective - Date & Time of Evaluation Date of Evaluation: 10/29/16 Time of Evaluation: 21:13 Objective - Vital Signs/Intake and Output Vital Signs (last 24 hours): Temp Pulse Resp BP Pulse Ox 97.7 F 105 H 22 137/73 97 10/29/16 16:00 10/29/16 16:00 10/29/16 16:00 10/29/16 16:00 10/29/16 16:00 Intake and Output: 10/29/16 10/30/16 18:59 06:59 Intake Total 360 Balance 360 - Medications Medications: Current Medications Acetaminophen (Tylenol 325mg Tab) 650 mg PO Q6 PRN PRN Reason: Pain, Mild (1-3) Amlodipine Besylate (Norvasc) 5 mg PO DAILY [facility] Last Admin: 10/29/16 09:43 Dose: 5 mg Aspirin (Aspirin Chewable) 81 mg PO DAILY [facility] Last Admin: 10/29/16 09:42 Dose: 81 mg Diltiazem HCl (Cardizem) 30 mg PO QID [facility] Last Admin: 10/29/16 17:15 Dose: 30 mg Famotidine (Pepcid) 20 mg PO BID [facility] Last Admin: 10/29/16 17:16 Dose: 20 mg Gabapentin (Neurontin) 100 mg PO TID [facility] Last Admin: 10/29/16 17:25 Dose: Not Given Heparin Sodium (Porcine) (Heparin) 5,000 units SC Q8 [facility] Last Admin: 10/28/16 22:00 Dose: Not Given Hydroxyzine HCl (Atarax) 25 mg PO Q6 PRN PRN Reason: Agitation Last Admin: 10/25/16 09:26 Dose: 25 mg Ipratropium [place] (Atrovent Hfa) 2 puff IH RQ6 [facility] Last Admin: 10/29/16 20:33 Dose: Not Given Lactobacillus Acidophilus (Bacid Acidophilus) 1 cap PO BID [facility] Last Admin: 10/29/16 17:15 Dose: 1 cap Meclizine HCl (Antivert) 12.5 mg PO TID [facility] Last Admin: 10/29/16 17:14 Dose: 12.5 mg Prednisone (Prednisone Tab) 20 mg PO ONCE ONE Stop: 10/30/16 10:01 Prednisone (Prednisone Tab) 10 mg PO ONCE ONE Stop: 10/31/16 10:01 Risperidone (Risperdal Tab) 1 mg PO HS [facility] Last Admin: 10/28/16 22:00 Dose: Not Given Rosuvastatin Calcium (Crestor) 5 mg PO HS [facility] Last Admin: 10/28/16 22:00 Dose: Not Given Fluticasone/Salmeterol (Advair Diskus 250/50) 1 puff INH RQ12 [facility] Last Admin: 10/29/16 20:33 Dose: Not Given Trazodone HCl (Desyrel) 50 mg PO HS [facility] Last Admin: 10/28/16 22:00 Dose: Not Given Vancomycin HCl (Vancocin (Oral Or Rectal Use)) 125 mg PO QID [facility] Last Admin: 10/29/16 17:17 Dose: 125 mg - Labs Labs: 10/29/16 07:10 10/29/16 07:10 PT 11.4 SECONDS (9.7-12.2) 10/20/16 19:38 INR 1.0 10/20/16 19:38 APTT 35 SECONDS (21-34) H 10/20/16 19:38
--- NOTE | 2016-10-29 22:09 | CP.PCM.PN ---
Subjective - Date & Time of Evaluation Date of Evaluation: 10/29/16 Time of Evaluation: 09:05 - Subjective Subjective: Patient refused cath again Recommend medical management Objective - Vital Signs/Intake and Output Vital Signs (last 24 hours): Temp Pulse Resp BP Pulse Ox 97.7 F 105 H 22 137/73 97 10/29/16 16:00 10/29/16 16:00 10/29/16 16:00 10/29/16 16:00 10/29/16 16:00 Intake and Output: 10/29/16 10/30/16 18:59 06:59 Intake Total 360 Balance 360 - Medications Medications: Current Medications Acetaminophen (Tylenol 325mg Tab) 650 mg PO Q6 PRN PRN Reason: Pain, Mild (1-3) Amlodipine Besylate (Norvasc) 5 mg PO DAILY [facility] Last Admin: 10/29/16 09:43 Dose: 5 mg Aspirin (Aspirin Chewable) 81 mg PO DAILY [facility] Last Admin: 10/29/16 09:42 Dose: 81 mg Diltiazem HCl (Cardizem) 30 mg PO QID [facility] Last Admin: 10/29/16 22:02 Dose: 30 mg Famotidine (Pepcid) 20 mg PO BID [facility] Last Admin: 10/29/16 17:16 Dose: 20 mg Gabapentin (Neurontin) 100 mg PO TID [facility] Last Admin: 10/29/16 17:25 Dose: Not Given Heparin Sodium (Porcine) (Heparin) 5,000 units SC Q8 [facility] Last Admin: 10/28/16 22:00 Dose: Not Given Hydroxyzine HCl (Atarax) 25 mg PO Q6 PRN PRN Reason: Agitation Last Admin: 10/25/16 09:26 Dose: 25 mg Ipratropium [place] (Atrovent Hfa) 2 puff IH RQ6 [facility] Last Admin: 10/29/16 20:33 Dose: Not Given Lactobacillus Acidophilus (Bacid Acidophilus) 1 cap PO BID [facility] Last Admin: 10/29/16 17:15 Dose: 1 cap Meclizine HCl (Antivert) 12.5 mg PO TID [facility] Last Admin: 10/29/16 17:14 Dose: 12.5 mg Prednisone (Prednisone Tab) 20 mg PO ONCE ONE Stop: 10/30/16 10:01 Prednisone (Prednisone Tab) 10 mg PO ONCE ONE Stop: 10/31/16 10:01 Risperidone (Risperdal Tab) 1 mg PO HS [facility] Last Admin: 10/29/16 22:03 Dose: 1 mg Rosuvastatin Calcium (Crestor) [address] [facility] Last Admin: 10/29/16 22:02 Dose: 5 mg Fluticasone/Salmeterol (Advair Diskus 250/50) 1 puff INH RQ12 [facility] Last Admin: 10/29/16 20:33 Dose: Not Given Trazodone HCl (Desyrel) [address] [facility] Last Admin: 10/29/16 22:03 Dose: 50 mg Vancomycin HCl (Vancocin (Oral Or Rectal Use)) 125 mg PO QID [facility] Last Admin: 10/29/16 22:03 Dose: 125 mg - Labs Labs: 10/29/16 07:10 10/29/16 07:10 PT 11.4 SECONDS (9.7-12.2) 10/20/16 19:38 INR 1.0 10/20/16 19:38 APTT 35 SECONDS (21-34) H 10/20/16 19:38
[2016-10-30] MEDS: Ipratropium 17 mcg/puff-200 puff/12.5 gm HFA Inh IH SCH ×3 (02:25→19:39)
[2016-10-30 06:28] LABS: BASO # 0.1 K/uL (0.0-0.2); BASO % 0.5 % (0.0-2.0); EOS # 0.3 K/uL (0.0-0.7); EOS % 1.4 % (0.0-4.0); HEMATOCRIT 38.6 % (34.0-47.0); LYMPH # 4.8 K/uL (1.0-4.3); LYMPH % 20.3 % (20.0-40.0); MEAN CELL VOLUME 83.8 fL (81.0-99.0); MEAN CORPUSCULAR HEMOGLOBIN 27.6 pg (27.0-31.0); MEAN CORPUSCULAR HGB CONC 32.9 g/dL (33.0-37.0); MEAN PLATELET VOLUME 7.6 fL (7.2-11.7); MONO # 1.4 K/uL (0.0-0.8); MONO % 5.9 % (0.0-10.0); RED CELL DISTRIBUTION WIDTH 14.9 % (11.5-14.5); WHITE BLOOD COUNT 23.6 K/uL (4.8-10.8)
[2016-10-30 06:29] LABS: CHLORIDE 95 mmol/L (98-107)
[2016-10-30 06:30] LABS: POTASSIUM 4.2 mmol/L (3.6-5.2); SODIUM 136 mmol/L (132-148)
[2016-10-30 06:32] LABS: BILIRUBIN,TOTAL 0.4 mg/dL (0.2-1.3); CARBON DIOXIDE 33 mmol/L (22-30); GFR AFRICAN-AMERICAN > 60
[2016-10-30 06:33] LABS: ALKALINE PHOSPHATASE 125 U/L (38-126); ALT/SGPT 74 U/L (9-52); AST/SGOT 25 U/L (14-36); BLOOD UREA NITROGEN 25 mg/dL (7-17); GLUCOSE,RANDOM 91 mg/dL (65-105); PHOSPHOROUS 4.4 mg/dL (2.5-4.5); TOTAL PROTEIN 5.5 g/dL (6.3-8.3)
[2016-10-30 06:36] LABS: ALB/GLOB RATIO 1.3 (1.0-2.1)
[2016-10-30] MEDS: Fluticasone-Salmeterol 250-50mcg Diskus INH SCH ×2 (07:20→19:38)
[2016-10-30] MEDS: Lactobacillus Acidophilus 500 MU Cap PO SCH ×2 (09:07→17:11)
[2016-10-30] MEDS: Vancomycin 125 MG/5 ML SOLN (ORAL/RECTAL) PO SCH ×4 (09:09→23:04)
[2016-10-31 08:04] LABS: BASO # 0.1 K/uL (0.0-0.2); BASO % 0.5 % (0.0-2.0); EOS # 0.4 K/uL (0.0-0.7); EOS % 1.8 % (0.0-4.0); HEMATOCRIT 38.2 % (34.0-47.0); LYMPH # 4.8 K/uL (1.0-4.3); LYMPH % 22.2 % (20.0-40.0); MEAN CELL VOLUME 84.1 fL (81.0-99.0); MEAN CORPUSCULAR HEMOGLOBIN 27.7 pg (27.0-31.0); MEAN CORPUSCULAR HGB CONC 32.9 g/dL (33.0-37.0); MEAN PLATELET VOLUME 7.5 fL (7.2-11.7); MONO % 4.7 % (0.0-10.0); RED CELL DISTRIBUTION WIDTH 15.1 % (11.5-14.5); WHITE BLOOD COUNT 21.6 K/uL (4.8-10.8)
[2016-10-31 08:24] LABS: CHLORIDE 94 mmol/L (98-107); SODIUM 136 mmol/L (132-148)
[2016-10-31 08:25] LABS: POTASSIUM 4.1 mmol/L (3.6-5.2)
[2016-10-31 08:27] LABS: ALB/GLOB RATIO 1.2 (1.0-2.1); ALKALINE PHOSPHATASE 97 U/L (38-126); AST/SGOT 25 U/L (14-36); BILIRUBIN,TOTAL 0.4 mg/dL (0.2-1.3); BLOOD UREA NITROGEN 21 mg/dL (7-17); CARBON DIOXIDE 31 mmol/L (22-30); GFR AFRICAN-AMERICAN > 60; GLUCOSE,RANDOM 159 mg/dL (65-105); PHOSPHOROUS 4.1 mg/dL (2.5-4.5); TOTAL PROTEIN 5.6 g/dL (6.3-8.3)
[2016-10-31 08:28] LABS: ALT/SGPT 60 U/L (9-52)
[2016-10-31] MEDS: Lactobacillus Acidophilus 500 MU Cap PO SCH ×2 (09:58→17:39)
[2016-10-31] MEDS: Vancomycin 125 MG/5 ML SOLN (ORAL/RECTAL) PO SCH ×4 (09:58→22:00)
--- NOTE | 2016-10-31 18:31 | CP.PCM.PN ---
Subjective - Date & Time of Evaluation Date of Evaluation: 10/31/16 Time of Evaluation: 18:30 - Subjective Subjective: Patient is still having episodes of diarrhea. Complaining of cough. Shortness of breath. No vomiting nausea. Increasingly eating Patient is very refusing to have a further treatment any aggressive. Vital signs reviewed No neck vein distention noted Bilateral wheezing CVS regular heart sound, no murmur noted Abdomen soft, nontender. Extremities no pedal edema [employer] alert awake oriented 3, no functional neurological deficit Diarrhea, most likely antibiotic associated. Chest pain nonspecific. COPD, uncontrolled. Bipolar disease. We'll continue the current treatment. If the WBC improves, possible discharge plan Objective - Vital Signs/Intake and Output Vital Signs (last 24 hours): Temp Pulse Resp BP Pulse Ox 98.4 F 106 H 20 107/73 98 10/31/16 15:16 10/31/16 15:16 10/31/16 15:16 10/31/16 15:16 10/31/16 15:16 Intake and Output: 10/31/16 10/31/16 06:59 18:59 Intake Total 240 500 Output Total 2 Balance 238 500 - Medications Medications: Current Medications Acetaminophen (Tylenol 325mg Tab) 650 mg PO Q6 PRN PRN Reason: Pain, Mild (1-3) Last Admin: 10/31/16 16:48 Dose: 650 mg Amlodipine Besylate (Norvasc) 5 mg PO DAILY [facility] Last Admin: 10/31/16 09:58 Dose: 5 mg Aspirin (Aspirin Chewable) 81 mg PO DAILY [facility] Last Admin: 10/31/16 09:58 Dose: 81 mg Diltiazem HCl (Cardizem) 30 mg PO QID [facility] Last Admin: 10/31/16 17:40 Dose: 30 mg Famotidine (Pepcid) 20 mg PO BID [facility] Last Admin: 10/31/16 17:40 Dose: 20 mg Gabapentin (Neurontin) 100 mg PO TID [facility] Last Admin: 10/31/16 17:40 Dose: Not Given Heparin Sodium (Porcine) (Heparin) 5,000 units SC Q8 [facility] Last Admin: 10/28/16 22:00 Dose: Not Given Hydroxyzine HCl (Atarax) 25 mg PO Q6 PRN PRN Reason: Agitation Last Admin: 10/25/16 09:26 Dose: 25 mg Ipratropium [place] (Atrovent Hfa) 2 puff IH RQ6 [facility] Last Admin: 10/30/16 19:39 Dose: Not Given Lactobacillus Acidophilus (Bacid Acidophilus) 1 cap PO BID [facility] Last Admin: 10/31/16 17:39 Dose: 1 cap Meclizine HCl (Antivert) 12.5 mg PO TID [facility] Last Admin: 10/31/16 17:39 Dose: 12.5 mg Risperidone (Risperdal Tab) 1 mg PO HS [facility] Last Admin: 10/30/16 23:03 Dose: Not Given Rosuvastatin Calcium (Crestor) 5 mg PO HS [facility] Last Admin: 10/30/16 23:03 Dose: Not Given Fluticasone/Salmeterol (Advair Diskus 250/50) 1 puff INH RQ12 [facility] Last Admin: 10/30/16 19:38 Dose: Not Given Trazodone HCl (Desyrel) 50 mg PO HS [facility] Last Admin: 10/30/16 23:03 Dose: Not Given Vancomycin HCl (Vancocin (Oral Or Rectal Use)) 125 mg PO QID [facility] Last Admin: 10/31/16 17:40 Dose: 125 mg - Labs Labs: 10/31/16 07:51 10/31/16 07:51 PT 11.4 SECONDS (9.7-12.2) 10/20/16 19:38 INR 1.0 10/20/16 19:38 APTT 35 SECONDS (21-34) H 10/20/16 19:38
[2016-10-31] MEDS ORDERED: Albuterol-Ipratrop 3 mg / 0.5 (3 ml) UD INH STA (20:07)
[2016-10-31] MEDS: Ipratropium 17 mcg/puff-200 puff/12.5 gm HFA Inh IH SCH (20:25)
[2016-10-31] MEDS: Fluticasone-Salmeterol 250-50mcg Diskus INH SCH (20:26)
[2016-11-01] MEDS: Albuterol-Ipratrop 3 mg / 0.5 (3 ml) UD INH SCH ×4 (01:43→20:22)
[2016-11-01] MEDS: Ipratropium 17 mcg/puff-200 puff/12.5 gm HFA Inh IH SCH ×4 (01:43→20:21)
[2016-11-01 07:38] LABS: BASO # 0.1 K/uL (0.0-0.2); BASO % 0.6 % (0.0-2.0); EOS # 0.2 K/uL (0.0-0.7); EOS % 1.1 % (0.0-4.0); HEMATOCRIT 38.2 % (34.0-47.0); LYMPH # 4.1 K/uL (1.0-4.3); LYMPH % 18.3 % (20.0-40.0); MEAN CELL VOLUME 83.3 fL (81.0-99.0); MEAN CORPUSCULAR HEMOGLOBIN 27.2 pg (27.0-31.0); MEAN CORPUSCULAR HGB CONC 32.7 g/dL (33.0-37.0); MEAN PLATELET VOLUME 7.5 fL (7.2-11.7); MONO # 1.4 K/uL (0.0-0.8); MONO % 6.2 % (0.0-10.0); RED CELL DISTRIBUTION WIDTH 15.3 % (11.5-14.5); WHITE BLOOD COUNT 22.4 K/uL (4.8-10.8)
[2016-11-01 08:04] LABS: CHLORIDE 96 mmol/L (98-107); SODIUM 135 mmol/L (132-148)
[2016-11-01 08:05] LABS: POTASSIUM 4.4 mmol/L (3.6-5.2)
[2016-11-01 08:07] LABS: ALB/GLOB RATIO 1.2 (1.0-2.1); ALKALINE PHOSPHATASE 119 U/L (38-126); ALT/SGPT 62 U/L (9-52); AST/SGOT 28 U/L (14-36); BILIRUBIN,TOTAL 0.6 mg/dL (0.2-1.3); BLOOD UREA NITROGEN 22 mg/dL (7-17); CARBON DIOXIDE 32 mmol/L (22-30); GFR AFRICAN-AMERICAN > 60; GLUCOSE,RANDOM 94 mg/dL (65-105); PHOSPHOROUS 3.9 mg/dL (2.5-4.5); TOTAL PROTEIN 6.1 g/dL (6.3-8.3)
[2016-11-01 08:08] LABS: CALCIUM 9.2 mg/dl (8.6-10.4)
[2016-11-01] MEDS: Lactobacillus Acidophilus 500 MU Cap PO SCH ×2 (09:20→17:26)
[2016-11-01] MEDS: Vancomycin 125 MG/5 ML SOLN (ORAL/RECTAL) PO SCH ×4 (09:21→22:25)
[2016-11-01] MEDS: Fluticasone-Salmeterol 250-50mcg Diskus INH SCH ×3 (09:54→20:21)
--- NOTE | 2016-11-01 16:27 | CP.PCM.PN ---
Subjective - Date & Time of Evaluation Date of Evaluation: 11/01/16 Time of Evaluation: 16:27 - Subjective Subjective: PT SEEN THIS ATFERNOON. C/O RIGHT LEG PAIN AND SWELLING. PT ADMITS THAT SHE HAS NOT BEEN AMBULATING MUCH NORMAL SINCE BEING HOSPITALIZED; ENCOURAGE OOB WITH PHY THER. NOTED THAT PT'S HEPARIN HAS BEEN ON HOLD OVER WEEKEND. ON EXAM PT'S RLE + SWELLING, + HOMANS SIGN, DECREASED ROM 2/2 PAIN. LLE FROM, NO SWELLING, NEG HOMANS. STAT VENOUS DOPPLERS ORDERED. DISCUSSED WITH PRIMARY RN PAPO. NOTIFIED DR. ARIAS OF PLAN. Objective - Vital Signs/Intake and Output Vital Signs (last 24 hours): Temp Pulse Resp BP Pulse Ox 98.5 F 118 H 22 114/72 98 11/01/16 15:25 11/01/16 15:25 11/01/16 15:25 11/01/16 15:25 11/01/16 15:25 Intake and Output: 11/01/16 11/01/16 06:59 18:59 Intake Total 500 Balance 500 - Medications Medications: Current Medications Albuterol/Ipratropium (Duoneb 3 Mg/0.5 Mg (3 Ml) Ud) 3 ml INH RQ6 [facility] Last Admin: 11/01/16 13:19 Dose: 3 ml Amlodipine Besylate (Norvasc) 5 mg PO DAILY [facility] Last Admin: 11/01/16 09:20 Dose: 5 mg Aspirin (Aspirin Chewable) 81 mg PO DAILY [facility] Last Admin: 11/01/16 09:21 Dose: 81 mg Diltiazem HCl (Cardizem) 30 mg PO QID [facility] Last Admin: 11/01/16 14:22 Dose: 30 mg Famotidine (Pepcid) 20 mg PO BID [facility] Last Admin: 11/01/16 09:20 Dose: 20 mg Gabapentin (Neurontin) 100 mg PO TID [facility] Last Admin: 11/01/16 14:27 Dose: Not Given Heparin Sodium (Porcine) (Heparin) 5,000 units SC Q12 [facility] Hydroxyzine HCl (Atarax) 25 mg PO Q6 PRN PRN Reason: Agitation Last Admin: 10/25/16 09:26 Dose: 25 mg Ibuprofen (Motrin Tab) 600 mg PO TID PRN PRN Reason: Pain, moderate (4-7) Ipratropium [place] (Atrovent Hfa) 2 puff IH RQ6 [facility] Last Admin: 11/01/16 07:20 Dose: Not Given Lactobacillus Acidophilus (Bacid Acidophilus) 1 cap PO BID [facility] Last Admin: 11/01/16 09:20 Dose: 1 cap Meclizine HCl (Antivert) 12.5 mg PO TID [facility] Last Admin: 11/01/16 14:22 Dose: 12.5 mg Risperidone (Risperdal Tab) 1 mg PO [facility] Last Admin: 10/31/16 22:00 Dose: Not Given Rosuvastatin Calcium (Crestor) 5 mg PO [facility] Last Admin: 10/31/16 22:00 Dose: Not Given Fluticasone/Salmeterol (Advair Diskus 250/50) 1 puff INH RQ12 [facility] Last Admin: 11/01/16 09:54 Dose: Not Given Trazodone HCl (Desyrel) 50 mg PO [facility] Last Admin: 10/31/16 22:00 Dose: Not Given Vancomycin HCl (Vancocin (Oral Or Rectal Use)) 125 mg PO QID [facility] Last Admin: 11/01/16 14:59 Dose: 125 mg - Labs Labs: 11/01/16 07:30 11/01/16 07:30 PT 11.4 SECONDS (9.7-12.2) 10/20/16 19:38 INR 1.0 10/20/16 19:38 APTT 35 SECONDS (21-34) H 10/20/16 19:38
[2016-11-01 20:38] LABS: INR 0.9; PARTIAL THROMBOPLASTIN TIME 29 SECONDS (21-34)
--- NOTE | 2016-11-01 23:45 | CP.PCM.PN ---
Subjective - Date & Time of Evaluation Date of Evaluation: 11/01/16 Time of Evaluation: 23:45 Objective - Vital Signs/Intake and Output Vital Signs (last 24 hours): Temp Pulse Resp BP Pulse Ox 98.5 F 118 H 22 114/72 98 11/01/16 15:25 11/01/16 15:25 11/01/16 15:25 11/01/16 15:25 11/01/16 15:25 Intake and Output: 11/01/16 11/02/16 18:59 06:59 Intake Total 500 1000 Balance 500 1000 - Medications Medications: Current Medications Albuterol/Ipratropium (Duoneb 3 Mg/0.5 Mg (3 Ml) Ud) 3 ml INH RQ6 [facility] Last Admin: 11/01/16 20:22 Dose: 3 ml Amlodipine Besylate (Norvasc) 5 mg PO DAILY [facility] Last Admin: 11/01/16 09:20 Dose: 5 mg Aspirin (Aspirin Chewable) 81 mg PO DAILY [facility] Last Admin: 11/01/16 09:21 Dose: 81 mg Diltiazem HCl (Cardizem) 30 mg PO QID [facility] Last Admin: 11/01/16 22:25 Dose: 30 mg Famotidine (Pepcid) 20 mg PO BID [facility] Last Admin: 11/01/16 17:26 Dose: 20 mg Gabapentin (Neurontin) 100 mg PO TID [facility] Last Admin: 11/01/16 17:26 Dose: 100 mg Heparin Sodium (Porcine) (Heparin) 5,000 units SC Q12 [facility] Last Admin: 11/01/16 22:25 Dose: 5,000 units Hydroxyzine HCl (Atarax) 25 mg PO Q6 PRN PRN Reason: Agitation Last Admin: 10/25/16 09:26 Dose: 25 mg Ibuprofen (Motrin Tab) 600 mg PO TID PRN PRN Reason: Pain, moderate (4-7) Last Admin: 11/01/16 17:26 Dose: 600 mg Ipratropium [place] (Atrovent Hfa) 2 puff IH RQ6 [facility] Last Admin: 11/01/16 20:21 Dose: 2 puff Lactobacillus Acidophilus (Bacid Acidophilus) 1 cap PO BID [facility] Last Admin: 11/01/16 17:26 Dose: 1 cap Meclizine HCl (Antivert) 12.5 mg PO TID [facility] Last Admin: 11/01/16 22:25 Dose: 12.5 mg Risperidone (Risperdal Tab) 1 mg PO [facility] Last Admin: 11/01/16 22:25 Dose: 1 mg Rosuvastatin Calcium (Crestor) 5 mg PO [facility] Last Admin: 11/01/16 22:25 Dose: 5 mg Fluticasone/Salmeterol (Advair Diskus 250/50) 1 puff INH RQ12 [facility] Last Admin: 11/01/16 20:21 Dose: 1 puff Trazodone HCl (Desyrel) 50 mg PO [facility] Last Admin: 11/01/16 22:25 Dose: 50 mg Vancomycin HCl (Vancocin (Oral Or Rectal Use)) 125 mg PO QID [facility] Last Admin: 11/01/16 22:25 Dose: 125 mg - Labs Labs: 11/01/16 07:30 11/01/16 07:30 PT 9.6 SECONDS (9.7-12.2) L 11/01/16 20:10 INR 0.9 11/01/16 20:10 APTT 29 SECONDS (21-34) 11/01/16 20:10
[2016-11-02 00:46] VITALS: RESP 20
[2016-11-02] MEDS: Ipratropium 17 mcg/puff-200 puff/12.5 gm HFA Inh IH SCH ×3 (01:25→19:59)
[2016-11-02] MEDS: Albuterol-Ipratrop 3 mg / 0.5 (3 ml) UD INH SCH ×4 (01:25→20:00)
[2016-11-02 08:02] LABS: BASO # 0.1 K/uL (0.0-0.2); BASO % 0.4 % (0.0-2.0); EOS # 0.3 K/uL (0.0-0.7); EOS % 1.9 % (0.0-4.0); HEMATOCRIT 37.1 % (34.0-47.0); LYMPH # 2.3 K/uL (1.0-4.3); LYMPH % 12.9 % (20.0-40.0); MEAN CELL VOLUME 83.4 fL (81.0-99.0); MEAN CORPUSCULAR HEMOGLOBIN 27.4 pg (27.0-31.0); MEAN CORPUSCULAR HGB CONC 32.8 g/dL (33.0-37.0); MEAN PLATELET VOLUME 7.8 fL (7.2-11.7); MONO # 1.1 K/uL (0.0-0.8); MONO % 6.1 % (0.0-10.0); NRBC % 0.1 % (0.0-2.0); RED CELL DISTRIBUTION WIDTH 15.1 % (11.5-14.5); WHITE BLOOD COUNT 17.7 K/uL (4.8-10.8)
[2016-11-02 08:11] LABS: CHLORIDE 96 mmol/L (98-107)
[2016-11-02 08:12] LABS: POTASSIUM 4.3 mmol/L (3.6-5.2); SODIUM 137 mmol/L (132-148)
[2016-11-02 08:14] LABS: BILIRUBIN,TOTAL 0.7 mg/dL (0.2-1.3); GFR AFRICAN-AMERICAN > 60
[2016-11-02 08:15] LABS: ALB/GLOB RATIO 1.1 (1.0-2.1); ALKALINE PHOSPHATASE 114 U/L (38-126); ALT/SGPT 68 U/L (9-52); AST/SGOT 40 U/L (14-36); BLOOD UREA NITROGEN 19 mg/dL (7-17); CALCIUM 9.1 mg/dl (8.6-10.4); CARBON DIOXIDE 32 mmol/L (22-30); GLUCOSE,RANDOM 99 mg/dL (65-105); TOTAL PROTEIN 6.1 g/dL (6.3-8.3)
[2016-11-02 08:16] LABS: MAGNESIUM 2.1 mg/dL (1.6-2.3)
[2016-11-02] MEDS: Fluticasone-Salmeterol 250-50mcg Diskus INH SCH ×3 (08:16→20:02)
[2016-11-02] MEDS: Lactobacillus Acidophilus 500 MU Cap PO SCH ×2 (09:27→17:47)
[2016-11-02] MEDS: Vancomycin 125 MG/5 ML SOLN (ORAL/RECTAL) PO SCH ×4 (09:31→22:00)
[2016-11-03] MEDS: Ipratropium 17 mcg/puff-200 puff/12.5 gm HFA Inh IH SCH (01:19)
[2016-11-03] MEDS: Albuterol-Ipratrop 3 mg / 0.5 (3 ml) UD INH SCH (01:19)
[2016-11-03] MEDS: Fluticasone-Salmeterol 250-50mcg Diskus INH SCH (08:03)
[2016-11-03 08:26] LABS: BASO # 0.1 K/uL (0.0-0.2); BASO % 0.5 % (0.0-2.0); EOS # 0.3 K/uL (0.0-0.7); EOS % 1.8 % (0.0-4.0); HEMATOCRIT 37.1 % (34.0-47.0); LYMPH # 1.8 K/uL (1.0-4.3); LYMPH % 10.4 % (20.0-40.0); MEAN CELL VOLUME 83.2 fL (81.0-99.0); MEAN CORPUSCULAR HEMOGLOBIN 27.4 pg (27.0-31.0); MEAN CORPUSCULAR HGB CONC 32.9 g/dL (33.0-37.0); RED CELL DISTRIBUTION WIDTH 15.1 % (11.5-14.5); WHITE BLOOD COUNT 16.8 K/uL (4.8-10.8)
[2016-11-03 09:04] LABS: CHLORIDE 99 mmol/L (98-107); POTASSIUM 4.4 mmol/L (3.6-5.2); SODIUM 137 mmol/L (132-148)
[2016-11-03 09:06] LABS: AST/SGOT 28 U/L (14-36); BILIRUBIN,TOTAL 0.5 mg/dL (0.2-1.3); CARBON DIOXIDE 27 mmol/L (22-30); GFR AFRICAN-AMERICAN > 60
[2016-11-03 09:07] LABS: ALB/GLOB RATIO 1.1 (1.0-2.1); ALKALINE PHOSPHATASE 128 U/L (38-126); ALT/SGPT 59 U/L (9-52); BLOOD UREA NITROGEN 18 mg/dL (7-17); CALCIUM 9.2 mg/dl (8.6-10.4); GLUCOSE,RANDOM 117 mg/dL (65-105); PHOSPHOROUS 3.5 mg/dL (2.5-4.5); TOTAL PROTEIN 6.4 g/dL (6.3-8.3)
[2016-11-03] MEDS: Vancomycin 125 MG/5 ML SOLN (ORAL/RECTAL) PO SCH ×2 (09:18→14:00)
[2016-11-03] MEDS: Lactobacillus Acidophilus 500 MU Cap PO SCH (09:18)
--- NOTE | 2016-11-03 10:00 | VASCLAB ---
PROCEDURE: Lower Extremity Venous Duplex Exam. HISTORY: r/o dvt; rle edema and + homans sign PRIORS: None. TECHNIQUE: Bilateral common femoral, femoral, popliteal and posterior tibial, peroneal and great saphenous veins were evaluated. Flow was assessed with color Doppler, compressibility, assessment of phasic flow and augmentation response. Report prepared by Emeka Hernandez, BS, RVT FINDINGS: RIGHT: 1. Common Femoral Vein: 1.1. Compressibility - Fully compressible: Thrombus - None : Flow - Phasic: Augmentation -Normal: Reflux - None. 2. Femoral Vein: 2.1. Compressibility - Fully compressible: Thrombus - None : Flow - Phasic: Augmentation -Normal: Reflux - None. 3. Popliteal Vein: 3.1. Compressibility - Fully compressible: Thrombus - None : Flow - Phasic: Augmentation -Normal: Reflux - None. 4. Posterior Tibial Vein: 4.1. Compressibility - Fully compressible: Thrombus - None: Flow - Phasic: Augmentation -Normal: Reflux - None. 5. Peroneal Vein: 5.1. Compressibility - Fully compressible: Thrombus - None: Flow - Phasic: Augmentation -Normal: Reflux - None. 6. Great Saphenous Vein: 6.1. Compressibility - Fully compressible: Thrombus - None: Flow - Phasic: Augmentation - Normal: Reflux - None. LEFT: 1. Common Femoral Vein: 1.1. Compressibility - Fully compressible: Thrombus - None: Flow - Phasic: Augmentation -Normal: Reflux - None. 2. Femoral Vein: 2.1. Compressibility - Fully compressible: Thrombus - None: Flow - Phasic: Augmentation -Normal: Reflux - None. 3. Popliteal Vein: 3.1. Compressibility - Fully compressible: Thrombus - None : Flow - Phasic: Augmentation -Normal: Reflux - None. 4. Posterior Tibial Vein: 4.1. Compressibility - Fully compressible: Thrombus - None: Flow - Phasic: Augmentation -Normal: Reflux - None. 5. Peroneal Vein: 5.1. Compressibility - Fully compressible: Thrombus - None: Flow - Phasic: Augmentation -Normal: Reflux - None. 6. Great Saphenous Vein: 6.1. Compressibility - Fully compressible: Thrombus - None: Flow - Phasic: Augmentation - Normal: Reflux - None. OTHER FINDINGS: Right: None significant. Left: None significant. IMPRESSION: Right: No evidence of deep or superficial vein thrombosis of the right lower extremity. Normal valve function noted of the right side. Left: No evidence of deep or superficial vein thrombosis of the left lower extremity. Normal valve function noted of the left side.
--- NOTE | 2016-11-03 12:03 | CP.PCM.PN ---
Subjective - Date & Time of Evaluation Date of Evaluation: 11/03/16 Time of Evaluation: 12:03 - Subjective Subjective: PT CLEARED FOR D/C HOME TODAY PER DR. ARIAS. ALL RX GIVEN TO PT. SHE WILL SEE HIM IN THE OFFICE WITHIN 1-2 WEEKS. FAMILY TO PICK PT UP. NO FURTHER ORDERS. Objective - Vital Signs/Intake and Output Vital Signs (last 24 hours): Temp Pulse Resp BP Pulse Ox 98.0 F 92 H 20 120/86 100 11/03/16 08:18 11/03/16 09:15 11/03/16 08:18 11/03/16 09:15 11/03/16 08:18 - Medications Medications: Current Medications Albuterol/Ipratropium (Duoneb 3 Mg/0.5 Mg (3 Ml) Ud) 3 ml INH RQ6 [facility] Last Admin: 11/03/16 01:19 Dose: Not Given Amlodipine Besylate (Norvasc) 5 mg PO DAILY [facility] Last Admin: 11/03/16 09:18 Dose: 5 mg Aspirin (Aspirin Chewable) 81 mg PO DAILY [facility] Last Admin: 11/03/16 09:18 Dose: 81 mg Diltiazem HCl (Cardizem) 30 mg PO QID [facility] Last Admin: 11/03/16 09:18 Dose: 30 mg Famotidine (Pepcid) 20 mg PO BID [facility] Last Admin: 11/03/16 09:18 Dose: 20 mg Gabapentin (Neurontin) 100 mg PO TID [facility] Last Admin: 11/03/16 09:22 Dose: Not Given Heparin Sodium (Porcine) (Heparin) 5,000 units SC Q12 [facility] Last Admin: 11/03/16 09:21 Dose: Not Given Hydroxyzine HCl (Atarax) 25 mg PO Q6 PRN PRN Reason: Agitation Last Admin: 11/02/16 09:27 Dose: 25 mg Ibuprofen (Motrin Tab) 600 mg PO TID PRN PRN Reason: Pain, moderate (4-7) Last Admin: 11/03/16 08:21 Dose: 600 mg Ipratropium [place] (Atrovent Hfa) 2 puff IH RQ6 [facility] Last Admin: 11/03/16 01:19 Dose: Not Given Lactobacillus Acidophilus (Bacid Acidophilus) 1 cap PO BID [facility] Last Admin: 11/03/16 09:18 Dose: 1 cap Meclizine HCl (Antivert) 12.5 mg PO TID [facility] Last Admin: 11/03/16 09:18 Dose: 12.5 mg Risperidone (Risperdal Tab) 1 mg PO [facility] Last Admin: 11/02/16 22:17 Dose: 1 mg Rosuvastatin Calcium (Crestor) 5 mg PO HS [facility] Last Admin: 11/02/16 22:16 Dose: 5 mg Fluticasone/Salmeterol (Advair Diskus 250/50) 1 puff INH RQ12 [facility] Last Admin: 11/03/16 08:03 Dose: Not Given Trazodone HCl (Desyrel) 50 mg PO [facility] Last Admin: 11/02/16 22:16 Dose: 50 mg Vancomycin HCl (Vancocin (Oral Or Rectal Use)) 125 mg PO QID [facility] Last Admin: 11/03/16 09:18 Dose: 125 mg - Labs Labs: 11/03/16 08:02 11/03/16 08:02 PT 9.6 SECONDS (9.7-12.2) L 11/01/16 20:10 INR 0.9 11/01/16 20:10 APTT 29 SECONDS (21-34) 11/01/16 20:10
[2016-11-03 15:15] VITALS: BP 101/70; PULSE 94; TEMP 97.8; O2SAT 98
== END 2016-11-03 16:15 | disposition home or self-care (01) | DRG 88 ==
LOC: C.ER 18:16 → C.9E 21:28 → C.6T 22:06
PROVIDERS: ADMIT Internal Medicine; ATTEND Internal Medicine
DX: J44.1 Chronic obstructive pulmonary disease with (acute) exacerbation (principal); F20.9 Schizophrenia, unspecified; I10 Essential (primary) hypertension; F31.9 Bipolar disorder, unspecified; F17.210 Nicotine dependence, cigarettes, uncomplicated; M81.0 Age-related osteoporosis without current pathological fracture; E78.00 Pure hypercholesterolemia, unspecified; M19.90 Unspecified osteoarthritis, unspecified site; D72.829 Elevated white blood cell count, unspecified; E66.9 Obesity, unspecified; E78.5 Hyperlipidemia, unspecified; T38.0X5A Adverse effect of glucocorticoids and synthetic analogues, initial encounter; Z87.01 Personal history of pneumonia (recurrent); R00.0 Tachycardia, unspecified; R07.9 Chest pain, unspecified

== ENCOUNTER 2017-03-22 16:14 | Inpatient (IN) | payer MEDICAID ==
[2017-03-22 16:14] VITALS: BMI 36.8
[2017-03-22] MEDS ORDERED: Sodium Chloride 0.9% 1,000 ML IV ONE (18:39)
[2017-03-22] MEDS ORDERED: Moxifloxacin IV 400mg/250ml NS 400 MG/250 ML BAG IVPB ONE (18:42)
[2017-03-22] MEDS ORDERED: Albuterol-Ipratrop 3 mg / 0.5 (3 ml) UD INH STA (18:42)
[2017-03-22 18:55] LABS: BASO # 0.1 K/uL (0.0-0.2); BASO % 1.1 % (0.0-2.0); EOS # 0.2 K/uL (0.0-0.7); EOS % 1.3 % (0.0-4.0); HEMOGLOBIN 14.9 g/dL (11.0-16.0); LYMPH # 2.5 K/uL (1.0-4.3); LYMPH % 19.8 % (20.0-40.0); MEAN CORPUSCULAR HEMOGLOBIN 25.7 pg (27.0-31.0); MEAN CORPUSCULAR HGB CONC 32.3 g/dL (33.0-37.0); MEAN PLATELET VOLUME 8.5 fL (7.2-11.7); MONO % 7.5 % (0.0-10.0); NEUT # 8.9 K/uL (1.8-7.0); NEUT % 70.3 % (50.0-75.0); NRBC % 0.3 % (0.0-2.0); RBC 5.8 Mil/uL (3.80-5.20); RED CELL DISTRIBUTION WIDTH 16.1 % (11.5-14.5); WHITE BLOOD COUNT 12.6 K/uL (4.8-10.8)
[2017-03-22 18:56] LABS: MEAN CELL VOLUME 79.3 fL (81.0-99.0)
[2017-03-22 18:59] LABS: PROTHROMBIN TIME 11.7 SECONDS (9.7-12.2)
--- NOTE | 2017-03-22 18:59 | C.PDOC ---
History Of Present Illness 61 year old female with PMHx of COPD, schizophrenia, bipolar disorder, HLD presents to the ED c/o SOB and CP for the past week. Patient states her cough is getting progressively worse over the past week. Patient is also reporting right elbow pain, she noticed her elbow is swollen and redness present. Patient reports her PMD is Dr. Rey who she had not seen in a while, patient missed and appointment with her psychiatrist Dr. Bowman. Patient is a poor historian. Time Seen by Provider: 03/22/17 18:21 Chief Complaint (Nursing): Abnormal Skin Integrity History Per: Patient History/Exam Limitations: no limitations Onset/Duration Of Symptoms: Days Current Symptoms Are (Timing): Still Present Location Of Injury: Right: Elbow, Posterior: Elbow Quality Of Symptoms: Painful, Swollen Recent travel outside of the [place]: No Additional History Per: Patient, Family Past Medical History Reviewed: Historical Data, Nursing Documentation, Vital Signs Vital Signs: Last Vital Signs Temp 98.3 F 03/22/17 19:07 Pulse 130 H 03/22/17 20:18 Resp 24 03/22/17 20:18 BP 107/76 03/22/17 20:18 Pulse Ox 97 03/22/17 20:45 - Medical History PMH: Anxiety, Arthritis, Bronchitis (09/2016), COPD, Depression, Emphysema, HTN , Hypercholesterolemia, Migraine, Pneumonia (2009), Schizophrenia Denies: Chronic Kidney Disease Surgical History: No Surg Hx Family History: States: Unknown Family Hx - Social History Hx Alcohol Use: No Hx Substance Use: No - Immunization History Hx Tetanus Toxoid Vaccination: No Hx Influenza Vaccination: No Hx Pneumococcal Vaccination: No Review Of Systems Constitutional: Negative for: Fever, Chills Cardiovascular: Positive for: Chest Pain. Negative for: Palpitations Respiratory: Positive for: Shortness of Breath. Negative for: Cough Gastrointestinal: Negative for: Nausea, Vomiting, Abdominal Pain Genitourinary: Negative for: Dysuria, Hematuria Musculoskeletal: Positive for: Arm Pain (rigth elbow) Skin: Positive for: Other (erythema right elbow) Neurological: Negative for: Weakness, Numbness, Headache Physical Exam - Physical Exam Appears: Non-toxic, Other (Obese, disheveled) Skin: Normal Color, Warm, Dry Head: Atraumatic, Normacephalic Eye(s): bilateral: Normal Inspection Nose: No Discharge, No Deformity Oral Mucosa: Moist Neck: Normal ROM, Supple Chest: Symmetrical Cardiovascular: Rhythm Regular (tachycardic), No Murmur, No JVD Respiratory: No Rales, Rhonchi (B/L), Wheezing (B/L) Gastrointestinal/Abdominal: Soft, No Tenderness, No Guarding, No Rebound Extremity: Normal ROM, No Pedal Edema, No Calf Tenderness, Capillary Refill (<2 seconds), No Deformity (gross), No Swelling (gross ), Other (right elbow, erythema, positive bursitis noted) Pulses: Left Radial: Normal, Right Radial: Normal Neurological/Psych: Oriented x3, Normal Speech, Normal Cognition Gait: Steady ED Course And Treatment - Laboratory Results Result Diagrams: 03/22/17 18:46 03/22/17 18:46 ECG: Interpreted By Me, Viewed By Me ECG Rhythm: Sinus Tachycardia Interpretation Of ECG: normal intervals, normal axis, no ST or T wave abnormalities Rate From EC O2 Sat by Pulse Oximetry: 97 Pulse Ox Interpretation: Normal - Radiology CXR: Interpreted by Me CXR Interpretation: Yes: No Acute Disease - Other Rad right elbow X-Ray: Interpreted by Me Interpretation: (+) soft tissue swelling Medical Decision Making Medical Decision Making: Impression : Right elbow pain, CP and SOB Plan: * EKG * Labs * CXR * UA * Blood culture * albuterol 3 ml INH * IV fluids * Toradol 30 mg IVP * Rigth elbow X-Ray * Nebulizer treatment * Avelox IV * Solumedrol 125 mg IV Spoke with Dr. Rey regarding the patient, patient will be admitted [facility] for COPD exacerbation. Disposition Discussed With : Bhavesh Rey Counseled Patient/Family Regarding: Studies Performed, Diagnosis - Disposition Disposition: HOSPITALIZED Disposition Time: 20:43 Condition: FAIR - Clinical Impression Clinical Impression: Cellulitis, COPD exacerbation - Scribe Statement The provider has reviewed the documentation as recorded by the Scribe John Holm All medical record entries made by the Scribe were at my direction and personally dictated by me. I have reviewed the chart and agree that the record accurately reflects my personal performance of the history, physical exam, medical decision making, and the department course for this patient. I have also personally directed, reviewed, and agree with the discharge instructions and disposition.
[2017-03-22 19:02] LABS: ALB/GLOB RATIO 1.3 (1.0-2.1); ALBUMIN 4.3 g/dL (3.5-5.0); CALCIUM 9.2 mg/dl (8.6-10.4); GFR AFRICAN-AMERICAN > 60; GFR NON-AFRICAN AMERICAN > 60
[2017-03-22 19:06] LABS: ALT/SGPT 13 U/L (9-52); AST/SGOT 20 U/L (14-36); BLOOD UREA NITROGEN 9 mg/dL (7-17)
[2017-03-22 19:15] LABS: B-TYPE NATRIURETIC PEPTIDE 74.2 pg/mL (0-900)
[2017-03-22 19:42] LABS: SQUAMOUS EPITHIAL 2 /hpf (0-5); URINE BACTERIA FEW (<OCC); URINE BILIRUBIN NEGATIVE (NEGATIVE); URINE CLARITY Hazy (Clear); URINE COLOR Yellow (YELLOW); URINE GLUCOSE (UA) NORMAL (Normal); URINE NITRATE NEGATIVE (NEGATIVE); URINE PROTEIN NEGATIVE (NEGATIVE); URINE UROBILINOGEN NORMAL mg/dL (0.2-1.0)
[2017-03-22 19:43] LABS: URINE BLOOD 2+ (NEGATIVE); URINE LEUKOCYTE ESTERASE 1+ Leu/uL (Negative)
[2017-03-22] MEDS ORDERED: Albuterol-Ipratrop 3 mg / 0.5 (3 ml) UD ONE (19:49)
[2017-03-22] MEDS ORDERED: Sodium Chloride 0.9% 1,000 ML ONE (19:50)
[2017-03-22 19:59] LABS: BARBITURATES, UR NEGATIVE (NEGATIVE); BENZODIAZEPINES, UR NEGATIVE (NEGATIVE); OPIATES, UR NEGATIVE (NEGATIVE); PHENCYCLIDINE, UR NEGATIVE (NEGATIVE)
[2017-03-22] MEDS ORDERED: Moxifloxacin IV 400mg/250ml NS 400 MG/250 ML BAG IVPB SCH (22:30)
--- NOTE | 2017-03-22 22:31 | CP.PCM.HP ---
History of Present Illness - History of Present Illness History of Present Illness: Chief complaint: Shortness of breath History present illness: 61-year-old female with history of COPD, currently active smoking, schizophrenia , bipolar disease. Patient is currently being followed up by psychiatrist. Currently receiving intra-muscular injection INVEGA once in 2 months. Patient used to be on multiple medications, but she has a significant behavior problems including problem in her cleanliness, patient is extremely untidy. Patient still continues to smoke almost to 2 packs per day. patient came to the emergency room with increasing symptoms of cough, shortness of breath, wheezing, and chest tightness. Patient is having the symptoms for almost 2 weeks, gradually got worse, and associated with a thick yellow mucus production. Increasing chest tightness noted, wheezing, patient is not taking any medications, still continues to smoke almost a 2 pack per day. She has no fever, no nausea vomiting, but the complaining of a headache. Episodes of dizziness present. Patient past and had multiple admissions secondary to COPD exacerbation, but in spite of that the patient does not want to quit smoking. Past medical history: Hypertension, osteoarthritis, osteoporosis, COPD, schizophrenia, hypercholesterolemia. Past surgical history: None Allergies: Penicillin and tetracycline Personal history: Patient is a lifelong nonalcoholic, but patient continues to smoke for many years, more than 30 years, 2 pack per day currently she is smoking 1 pack per day. Denies any drug abuse. Patient sees the psychiatrist once a month and she gets the injection Family history: Noncontributory Review of system: The patient is somewhat agitated. She was complaining of dizziness. According to the family member she was having some ear infection, especially on the right side with the some discharge. According to the family members and she was also having some discharge from the left side of the breast. She was having epigastric pain, abdominal pain on and off. But severe shortness of breath and cough and wheezing noted Vital signs reviewed No neck vein distention noted Severe bilateral diffuse wheezing and rhonchi noted CVS regular heart sound, no murmur noted Abdomen soft, nontender. Extremities no pedal edema [employer] alert awake oriented 3, no functional neurological deficit Chest x-ray showing no evidence of any acute infiltrate, but left lower lung zone haziness noted Assessment/Plan: 61-year-old female with history of COPD, active smoking, schizophrenia, bipolar disease. Now admitted with acute exacerbation of COPD with the severe wheezing and rhonchi. Patient is on antibiotic Avelox, corticosteroids, broncho-dilator. Glucose monitoring. Patient is currently refusing to have the further workup including CAT scan of the lungs, and the further ENT evaluation. We will attempted to have further evaluation, continue the current treatment, DVT and GI prophylaxis. Will follow the patient. She is complaining of vertigo most likely related to the right ear infection. Patient is also having agitation, and anxiety. We'll get a psychiatric consultation tomorrow Present on Admission - Present on Admission Any Indicators Present on Admission: No History of DVT/PE: No History of Uncontrolled Diabetes: No Urinary Catheter: No Decubitus Ulcer Present: No Past Patient History - Infectious Disease Hx of Infectious Diseases: None - Past Medical History & Family History Past Medical History?: Yes - Past Social History Smoking Status: Heavy Smoker > 10 Cigarettes Daily - CARDIAC Hx Hypercholesterolemia: Yes Hx Hypertension: Yes - PULMONARY Hx Bronchitis: Yes (09/2016) Hx Chronic Obstructive Pulmonary Disease (COPD): Yes Hx Emphysema: Yes Hx Pneumonia: Yes (2009) - NEUROLOGICAL Hx Migraine: Yes - HEENT Hx HEENT Problems: Yes Other/Comment: wear eyeglasses (bifocal) - RENAL Hx Chronic Kidney Disease: No - ENDOCRINE/METABOLIC Hx Endocrine Disorders: No - HEMATOLOGICAL/ONCOLOGICAL Hx Blood Disorders: No - INTEGUMENTARY Hx Dermatological Problems: No - MUSCULOSKELETAL/RHEUMATOLOGICAL Hx Arthritis: Yes - GASTROINTESTINAL Hx Gastrointestinal Disorders: No - GENITOURINARY/GYNECOLOGICAL Hx Genitourinary Disorders: No - PSYCHIATRIC Hx Anxiety: Yes Hx Depression: Yes Hx Schizophrenia: Yes Hx Substance Use: No - SURGICAL HISTORY Hx Surgeries: No - ANESTHESIA Hx Anesthesia: No Hx Anesthesia Reactions: No Hx Malignant Hyperthermia: No Meds Allergies/Adverse Reactions: Allergies Allergy/AdvReac Type Severity Reaction Status Date / Time Penicillins Allergy Verified 03/22/17 18:20 tetracycline Allergy Verified 03/22/17 18:20 Results - Vital Signs Recent Vital Signs: Last Vital Signs Temp 98 F 03/22/17 22:30 Pulse 99 H 03/22/17 22:30 Resp 18 03/22/17 22:30 BP 141/77 03/22/17 22:30 Pulse Ox 98 03/22/17 22:30 - Labs Result Diagrams: 03/24/17 14:11 03/24/17 14:11 Labs: Laboratory Results - last 24 hr 03/22/17 03/22/17 03/22/17 18:46 18:46 18:46 WBC 12.6 H RBC 5.80 H Hgb 14.9 D Hct 46.0 MCV 79.3 L D MCH 25.7 L MCHC 32.3 L RDW 16.1 H Plt Count 291 MPV 8.5 Neut % (Auto) 70.3 Lymph % (Auto) 19.8 L [place] % (Auto) 7.5 Eos % (Auto) 1.3 Baso % (Auto) 1.1 Neut # 8.9 H Lymph # 2.5 [place] # 1.0 H Eos # 0.2 Baso # 0.1 PT 11.7 INR 1.0 APTT 34 Sodium 133 Potassium 4.5 Chloride 98 Carbon Dioxide 27 Anion Gap 12 BUN 9 Creatinine 0.6 L Est GFR ( Amer) > 60 Est GFR (Non-Af Amer) > 60 Random Glucose 87 Calcium 9.2 Total Bilirubin 0.6 AST 20 ALT 13 Alkaline Phosphatase 87 Troponin I < 0.0120 NT-Pro-B Natriuret Pep 74.2 Total Protein 7.7 Albumin 4.3 Globulin 3.4 Albumin/Globulin Ratio 1.3 TSH 3rd Generation Urine Color Urine Clarity Urine pH Ur Specific [place] Urine Protein Urine Glucose (UA) Urine Ketones Urine Blood Urine Nitrate Urine Bilirubin Urine Urobilinogen Ur Leukocyte Esterase Urine WBC (Auto) Urine RBC (Auto) Ur Squamous Epith Cells Urine Bacteria Urine Opiates Screen Urine Methadone Screen Ur Barbiturates Screen Ur Phencyclidine Scrn Ur Amphetamines Screen U Benzodiazepines Scrn U Oth Cocaine Metabols U Cannabinoids Screen 03/22/17 03/22/17 03/22/17 19:29 19:29 19:33 WBC RBC Hgb Hct MCV MCH MCHC RDW Plt Count MPV Neut % (Auto) Lymph % (Auto) [place] % (Auto) Eos % (Auto) Baso % (Auto) Neut # Lymph # [place] # Eos # Baso # PT INR APTT Sodium Potassium Chloride Carbon Dioxide Anion Gap BUN Creatinine Est GFR ( Amer) Est GFR (Non-Af Amer) Random Glucose Calcium Total Bilirubin AST ALT Alkaline Phosphatase Troponin I NT-Pro-B Natriuret Pep Total Protein Albumin Globulin Albumin/Globulin Ratio TSH 3rd Generation 1.35 Urine Color Yellow Urine Clarity Hazy Urine pH 7.0 Ur Specific [place] 1.008 Urine Protein Negative Urine Glucose (UA) Normal Urine Ketones Negative Urine Blood 2+ H Urine Nitrate Negative Urine Bilirubin Negative Urine Urobilinogen Normal Ur Leukocyte Esterase 1+ H Urine WBC (Auto) 7 H Urine RBC (Auto) 15 H Ur Squamous Epith Cells 2 Urine Bacteria Few H Urine Opiates Screen Negative Urine Methadone Screen Negative Ur Barbiturates Screen Negative Ur Phencyclidine Scrn Negative Ur Amphetamines Screen Negative U Benzodiazepines Scrn Negative U Oth Cocaine Metabols Negative U Cannabinoids Screen Negative
[2017-03-23] MEDS: Albuterol-Ipratrop 3 mg / 0.5 (3 ml) UD INH SCH ×4 (02:11→19:48)
[2017-03-23] MEDS ORDERED: Albuterol-Ipratrop 3 mg / 0.5 (3 ml) UD ONE ×2 (02:15→08:07)
--- NOTE | 2017-03-23 08:48 | RAD ---
PROCEDURE: Radiographs of the right elbow. HISTORY: pain and swelling COMPARISON: No prior. FINDINGS: BONES: No fracture or destructive bony lesions appreciated on acute basis. degenerative changes seen at the humeral ulnar joint with the humeral radial joint unremarkable appearing. No subluxation or dislocation. JOINTS: As above. SOFT TISSUES: Prominent, ovoid soft tissue density is seen overlying the olecranon process suggestive of possible olecranon bursitis. JOINT EFFUSION: Limited joint effusion may be elevating the anterior fat pad. No similar changes posteriorly. OTHER FINDINGS: None. IMPRESSION: Prominent soft tissue overlies the olecranon process potentially reflecting olecranon bursitis. Clinically correlate further.
--- NOTE | 2017-03-23 08:50 | RAD ---
HISTORY: chest pain COMPARISON: Portable chest 10/20/2016. TECHNIQUE: Chest PA and lateral FINDINGS: LUNGS: No active pulmonary disease. PLEURA: No significant pleural effusion identified. No pneumothorax apparent. CARDIOVASCULAR: Normal. OSSEOUS STRUCTURES: No significant abnormalities. VISUALIZED UPPER ABDOMEN: Normal. OTHER FINDINGS: None. IMPRESSION: No interval acute cardiopulmonary disease appreciated.
[2017-03-23] MEDS: Fluticasone-Salmeterol 500-50mcg Diskus INH SCH ×2 (10:36→19:50)
[2017-03-23] MEDS: Tiotropium 18 mcg Cap For Inhalation INH SCH (10:36)
[2017-03-23] MEDS: Pantoprazole 40 mg EC Tab PO SCH ×2 (10:51→21:22)
[2017-03-23] MEDS: MethylPREDNISolone 40 mg Vial IVP SCH ×2 (10:53→21:17)
[2017-03-23] MEDS: Lactobacillus Acidophilus 500 MU Cap PO SCH ×2 (10:55→17:45)
[2017-03-23 11:45] VITALS: RESP 20
[2017-03-24] MEDS: Albuterol-Ipratrop 3 mg / 0.5 (3 ml) UD INH SCH ×4 (01:16→19:35)
[2017-03-24] MEDS: Tiotropium 18 mcg Cap For Inhalation INH SCH (07:33)
[2017-03-24] MEDS: Fluticasone-Salmeterol 500-50mcg Diskus INH SCH ×2 (07:33→19:36)
[2017-03-24] MEDS: Pantoprazole 40 mg EC Tab PO SCH ×2 (10:09→22:06)
[2017-03-24] MEDS: Lactobacillus Acidophilus 500 MU Cap PO SCH ×2 (10:09→18:13)
[2017-03-24] MEDS: MethylPREDNISolone 40 mg Vial IVP SCH ×2 (10:10→22:09)
--- NOTE | 2017-03-24 10:39 | CARD ---
APPROVED REPORT EKG Measurement Heart [id number] <Conclusion> Sinus tachycardia Otherwise normal ECG
[2017-03-24 14:18] LABS: BASO % 0.3 % (0.0-2.0); EOS % 0.1 % (0.0-4.0); HEMOGLOBIN 13.7 g/dL (11.0-16.0); LYMPH # 0.6 K/uL (1.0-4.3); LYMPH % 4.5 % (20.0-40.0); MEAN CELL VOLUME 79.3 fL (81.0-99.0); MEAN CORPUSCULAR HGB CONC 32.8 g/dL (33.0-37.0); MEAN PLATELET VOLUME 8.7 fL (7.2-11.7); MONO # 0.5 K/uL (0.0-0.8); MONO % 3.6 % (0.0-10.0); NEUT # 12.2 K/uL (1.8-7.0); NEUT % 91.5 % (50.0-75.0); PLATELET COUNT 289 K/uL (130-400); RBC 5.26 Mil/uL (3.80-5.20); RED CELL DISTRIBUTION WIDTH 15.7 % (11.5-14.5); WHITE BLOOD COUNT 13.3 K/uL (4.8-10.8)
[2017-03-24 14:44] LABS: ALB/GLOB RATIO 1.3 (1.0-2.1); ALBUMIN 3.9 g/dL (3.5-5.0); ALT/SGPT 16 U/L (9-52); AST/SGOT 14 U/L (14-36); BLOOD UREA NITROGEN 16 mg/dL (7-17); GFR AFRICAN-AMERICAN > 60; GFR NON-AFRICAN AMERICAN > 60
[2017-03-24 15:03] LABS: ANISOCYTOSIS SLIGHT; LYMPHOCYTE 3 % (20-40); MONOCYTE 2 % (0-10); NEUTROPHIL 95 % (50-75); PLATELET ESTIMATE NORMAL (NORMAL); TOTAL CELLS COUNTED 100
[2017-03-24 15:04] LABS: HYPOCHROMIC SLIGHT; MICROCYTOSIS SLIGHT
--- NOTE | 2017-03-24 22:02 | CP.PCM.PN ---
Subjective - Date & Time of Evaluation Date of Evaluation: 03/24/17 Time of Evaluation: 22:01 - Subjective Subjective: Patient is feeling increasing wheezing and cough. Chest tightness presently Mucus production present. Denies any chest pain now. But tightness and wheezing present using an abrasive. Vital signs stable otherwise. Bilateral wheezing and rales noted Assessment and recommendation: 61 female with history of COPD schizophrenia. Admitted with acute exacerbation of COPD. I suggested the patient will continue the current treatment. Antibiotic bronchodilators corticosteroid. We'll get psychiatric evaluation for possible INVEGA injection. We'll follow-up the patient Objective - Vital Signs/Intake and Output Vital Signs (last 24 hours): Temp Pulse Resp BP Pulse Ox 97.8 F 98 H 20 137/83 93 L 03/24/17 15:00 03/24/17 15:00 03/24/17 15:00 03/24/17 15:00 03/24/17 15:00 Intake and Output: 03/24/17 03/25/17 18:59 06:59 Intake Total 600 Balance 600 - Medications Medications: Current Medications Albuterol/Ipratropium (Duoneb 3 Mg/0.5 Mg (3 Ml) Ud) 3 ml INH RQ6 [facility] Last Admin: 03/24/17 19:35 Dose: 3 ml Amlodipine Besylate (Norvasc) 10 mg PO DAILY [facility] Last Admin: 03/24/17 10:09 Dose: 10 mg Aspirin (Aspirin Chewable) 81 mg PO DAILY [facility] Last Admin: 03/24/17 10:09 Dose: 81 mg Diltiazem HCl (Cardizem) 30 mg PO QID [facility] Last Admin: 03/24/17 18:13 Dose: 30 mg Famotidine (Pepcid) 20 mg PO BID [facility] Last Admin: 03/24/17 18:13 Dose: 20 mg Gabapentin (Neurontin) 100 mg PO TID [facility] Last Admin: 03/24/17 18:13 Dose: 100 mg Heparin Sodium (Porcine) (Heparin) 5,000 units SC Q8 [facility] Last Admin: 03/24/17 14:53 Dose: 5,000 units Hydroxyzine HCl (Atarax) 25 mg PO Q6 PRN PRN Reason: Agitation Ibuprofen (Motrin Tab) 600 mg PO TID PRN PRN Reason: Pain, moderate (4-7) Last Admin: 03/23/17 10:52 Dose: 600 mg Lactobacillus Acidophilus (Bacid Acidophilus) 1 cap PO BID [facility] Last Admin: 03/24/17 18:13 Dose: 1 cap Meclizine HCl (Antivert) 12.5 mg PO TID PRN PRN Reason: Dizziness Last Admin: 03/24/17 16:23 Dose: 12.5 mg Methylprednisolone (Solu-Medrol) 40 mg IVP Q12 [facility] Last Admin: 03/24/17 10:10 Dose: 40 mg Moxifloxacin HCl (Avelox) 400 mg PO DAILY [facility] Last Admin: 03/24/17 10:09 Dose: 400 mg Pantoprazole Sodium (Protonix Ec Tab) 40 mg PO Q12 [facility] Last Admin: 03/24/17 10:09 Dose: 40 mg Risperidone (Risperdal Tab) 1 mg PO HS [facility] Last Admin: 03/23/17 21:19 Dose: 1 mg Rosuvastatin Calcium (Crestor) 5 mg PO HS [facility] Last Admin: 03/23/17 21:19 Dose: 5 mg Fluticasone/Salmeterol (Advair Diskus 500/50) 1 puff INH RQ12 [facility] Last Admin: 03/24/17 19:36 Dose: Not Given Tiotropium [place] (Spiriva) 18 mcg INH RQ24 [facility] Last Admin: 03/24/17 07:33 Dose: Not Given Tramadol HCl (Ultram) 50 mg PO BID PRN PRN Reason: pain Last Admin: 03/24/17 05:34 Dose: 50 mg - Labs Labs: 03/24/17 14:11 03/24/17 14:11 PT 11.7 SECONDS (9.7-12.2) 03/22/17 18:46 INR 1.0 03/22/17 18:46 APTT 34 SECONDS (21-34) 03/22/17 18:46
[2017-03-25] MEDS: Albuterol-Ipratrop 3 mg / 0.5 (3 ml) UD INH SCH ×4 (01:26→21:19)
[2017-03-25] MEDS: Tiotropium 18 mcg Cap For Inhalation INH SCH (08:04)
[2017-03-25] MEDS: Fluticasone-Salmeterol 500-50mcg Diskus INH SCH ×2 (08:04→21:19)
[2017-03-25 08:33] LABS: BASO % 0.3 % (0.0-2.0); EOS % 0.1 % (0.0-4.0); HEMOGLOBIN 14.8 g/dL (11.0-16.0); LYMPH # 0.9 K/uL (1.0-4.3); LYMPH % 7.1 % (20.0-40.0); MEAN CORPUSCULAR HEMOGLOBIN 26.4 pg (27.0-31.0); MEAN CORPUSCULAR HGB CONC 33.4 g/dL (33.0-37.0); MEAN PLATELET VOLUME 8.4 fL (7.2-11.7); MONO # 0.6 K/uL (0.0-0.8); MONO % 4.9 % (0.0-10.0); NEUT # 11.1 K/uL (1.8-7.0); NEUT % 87.6 % (50.0-75.0); PLATELET COUNT 308 K/uL (130-400); RED CELL DISTRIBUTION WIDTH 16.1 % (11.5-14.5); WHITE BLOOD COUNT 12.7 K/uL (4.8-10.8)
[2017-03-25 09:08] LABS: ALB/GLOB RATIO 1.3 (1.0-2.1); ALBUMIN 4.2 g/dL (3.5-5.0); ALT/SGPT 10 U/L (9-52); AST/SGOT 15 U/L (14-36); BLOOD UREA NITROGEN 17 mg/dL (7-17); CALCIUM 9.3 mg/dl (8.6-10.4); GFR AFRICAN-AMERICAN > 60; GFR NON-AFRICAN AMERICAN > 60
[2017-03-25] MEDS: MethylPREDNISolone 40 mg Vial IVP SCH ×2 (10:03→21:42)
[2017-03-25] MEDS: Pantoprazole 40 mg Susp UD PO SCH ×2 (10:03→21:42)
[2017-03-25] MEDS: Lactobacillus Acidophilus 500 MU Cap PO SCH ×2 (10:03→17:48)
[2017-03-25 10:18] LABS: ANISOCYTOSIS SLIGHT; LYMPHOCYTE 7 % (20-40); MONOCYTE 3 % (0-10); NEUTROPHIL 90 % (50-75); PLATELET ESTIMATE NORMAL (NORMAL); TOTAL CELLS COUNTED 100
[2017-03-25 10:19] LABS: HYPOCHROMIC SLIGHT; LARGE PLATELETS PRESENT; POLYCHROMIC SLIGHT; TOXIC GRANULATION PRESENT
--- NOTE | 2017-03-25 21:35 | CP.PCM.PN ---
Subjective - Date & Time of Evaluation Date of Evaluation: 03/25/17 Time of Evaluation: 21:35 Objective - Vital Signs/Intake and Output Vital Signs (last 24 hours): Temp Pulse Resp BP Pulse Ox 98.6 F 106 H 20 151/82 H 94 L 03/25/17 16:15 03/25/17 16:15 03/25/17 16:15 03/25/17 16:15 03/25/17 16:15 Intake and Output: 03/25/17 03/26/17 18:59 06:59 Intake Total 500 Balance 500 - Medications Medications: Current Medications Albuterol/Ipratropium (Duoneb 3 Mg/0.5 Mg (3 Ml) Ud) 3 ml INH RQ6 [facility] Last Admin: 03/25/17 21:19 Dose: 3 ml Amlodipine Besylate (Norvasc) 10 mg PO DAILY [facility] Last Admin: 03/25/17 10:03 Dose: 10 mg Aspirin (Aspirin Chewable) 81 mg PO DAILY [facility] Last Admin: 03/25/17 10:02 Dose: 81 mg Diltiazem HCl (Cardizem) 30 mg PO QID [facility] Last Admin: 03/25/17 17:48 Dose: 30 mg Famotidine (Pepcid) 20 mg PO BID [facility] Last Admin: 03/25/17 17:48 Dose: 20 mg Gabapentin (Neurontin) 100 mg PO TID [facility] Last Admin: 03/25/17 17:48 Dose: 100 mg Heparin Sodium (Porcine) (Heparin) 5,000 units SC Q8 [facility] Last Admin: 03/25/17 13:51 Dose: 5,000 units Hydroxyzine HCl (Atarax) 25 mg PO Q6 PRN PRN Reason: Agitation Ibuprofen (Motrin Tab) 600 mg PO TID PRN PRN Reason: Pain, moderate (4-7) Last Admin: 03/23/17 10:52 Dose: 600 mg Lactobacillus Acidophilus (Bacid Acidophilus) 1 cap PO BID [facility] Last Admin: 03/25/17 17:48 Dose: 1 cap Meclizine HCl (Antivert) 12.5 mg PO TID PRN PRN Reason: Dizziness Last Admin: 03/25/17 08:30 Dose: 12.5 mg Methylprednisolone (Solu-Medrol) 40 mg IVP Q12 [facility] Last Admin: 03/25/17 10:03 Dose: 40 mg Moxifloxacin HCl (Avelox) 400 mg PO DAILY [facility] Last Admin: 03/25/17 10:03 Dose: 400 mg Pantoprazole Sodium (Protonix Susp) 40 mg PO Q12 [facility] Last Admin: 03/25/17 10:03 Dose: 40 mg Risperidone (Risperdal Tab) 1 mg PO HS [facility] Last Admin: 03/24/17 22:06 Dose: 1 mg Rosuvastatin Calcium (Crestor) 5 mg PO HS [facility] Last Admin: 03/24/17 22:06 Dose: 5 mg Fluticasone/Salmeterol (Advair Diskus 500/50) 1 puff INH RQ12 [facility] Last Admin: 03/25/17 21:19 Dose: Not Given Tiotropium [place] (Spiriva) 18 mcg INH RQ24 [facility] Last Admin: 03/25/17 08:04 Dose: Not Given Tramadol HCl (Ultram) 50 mg PO BID PRN PRN Reason: pain Last Admin: 03/24/17 05:34 Dose: 50 mg - Labs Labs: 03/25/17 08:24 03/25/17 08:24 PT 11.7 SECONDS (9.7-12.2) 03/22/17 18:46 INR 1.0 03/22/17 18:46 APTT 34 SECONDS (21-34) 03/22/17 18:46
[2017-03-26] MEDS: Albuterol-Ipratrop 3 mg / 0.5 (3 ml) UD INH SCH ×4 (01:35→19:35)
[2017-03-26] MEDS: Tiotropium 18 mcg Cap For Inhalation INH SCH (07:47)
[2017-03-26] MEDS: Fluticasone-Salmeterol 500-50mcg Diskus INH SCH ×2 (07:47→19:34)
[2017-03-26 09:14] LABS: BASO # 0.1 K/uL (0.0-0.2); BASO % 0.5 % (0.0-2.0); HEMOGLOBIN 14.4 g/dL (11.0-16.0); LYMPH # 0.9 K/uL (1.0-4.3); LYMPH % 7.2 % (20.0-40.0); MEAN CELL VOLUME 78.9 fL (81.0-99.0); MEAN CORPUSCULAR HEMOGLOBIN 25.9 pg (27.0-31.0); MEAN CORPUSCULAR HGB CONC 32.9 g/dL (33.0-37.0); MEAN PLATELET VOLUME 7.9 fL (7.2-11.7); MONO % 8.3 % (0.0-10.0); NEUT # 10.4 K/uL (1.8-7.0); NRBC % 0.1 % (0.0-2.0); PLATELET COUNT 298 K/uL (130-400); RBC 5.55 Mil/uL (3.80-5.20); RED CELL DISTRIBUTION WIDTH 16.3 % (11.5-14.5); WHITE BLOOD COUNT 12.4 K/uL (4.8-10.8)
[2017-03-26 09:31] LABS: ALB/GLOB RATIO 1.3 (1.0-2.1); ALBUMIN 3.7 g/dL (3.5-5.0); ALT/SGPT 18 U/L (9-52); AST/SGOT 18 U/L (14-36); BLOOD UREA NITROGEN 18 mg/dL (7-17); CALCIUM 8.6 mg/dl (8.6-10.4); GFR AFRICAN-AMERICAN > 60; GFR NON-AFRICAN AMERICAN > 60; MAGNESIUM 1.9 mg/dL (1.6-2.3)
[2017-03-26] MEDS: MethylPREDNISolone 40 mg Vial IVP SCH ×2 (09:56→21:21)
[2017-03-26] MEDS: Lactobacillus Acidophilus 500 MU Cap PO SCH ×2 (09:56→17:34)
[2017-03-26] MEDS: Pantoprazole 40 mg Susp UD PO SCH ×2 (09:57→21:21)
[2017-03-26 11:26] LABS: ANISOCYTOSIS SLIGHT; LYMPHOCYTE 10 % (20-40); MONOCYTE 7 % (0-10); NEUTROPHIL 83 % (50-75); OVALOCYTES SLIGHT; PLATELET ESTIMATE NORMAL (NORMAL); POIKILOCYTOSIS SLIGHT; TEARDROP CELLS SLIGHT; TOTAL CELLS COUNTED 100
[2017-03-26 11:27] LABS: MICROCYTOSIS SLIGHT
[2017-03-27] MEDS: Albuterol-Ipratrop 3 mg / 0.5 (3 ml) UD INH SCH ×4 (01:40→20:27)
[2017-03-27] MEDS: Fluticasone-Salmeterol 500-50mcg Diskus INH SCH ×2 (07:41→20:27)
[2017-03-27] MEDS: Tiotropium 18 mcg Cap For Inhalation INH SCH (07:42)
[2017-03-27] MEDS: MethylPREDNISolone 40 mg Vial IVP SCH ×2 (10:22→22:50)
[2017-03-27] MEDS: Lactobacillus Acidophilus 500 MU Cap PO SCH ×2 (10:22→18:37)
[2017-03-27] MEDS: Pantoprazole 40 mg Susp UD PO SCH ×2 (10:22→22:50)
[2017-03-28] MEDS: Albuterol-Ipratrop 3 mg / 0.5 (3 ml) UD INH SCH ×3 (01:10→13:38)
[2017-03-28] MEDS: Fluticasone-Salmeterol 500-50mcg Diskus INH SCH (08:14)
[2017-03-28] MEDS: Tiotropium 18 mcg Cap For Inhalation INH SCH (08:15)
[2017-03-28] MEDS: Pantoprazole 40 mg Susp UD PO SCH ×2 (08:33→13:49)
[2017-03-28] MEDS: Lactobacillus Acidophilus 500 MU Cap PO SCH ×3 (08:36→17:31)
[2017-03-28] MEDS: MethylPREDNISolone 40 mg Vial IVP SCH ×2 (08:51→13:49)
[2017-03-28 14:30] LABS: BASO % 0.2 % (0.0-2.0); EOS % 0.1 % (0.0-4.0); HEMOGLOBIN 14.8 g/dL (11.0-16.0); LYMPH # 0.6 K/uL (1.0-4.3); LYMPH % 4.5 % (20.0-40.0); MEAN CELL VOLUME 79.5 fL (81.0-99.0); MEAN CORPUSCULAR HGB CONC 32.7 g/dL (33.0-37.0); MEAN PLATELET VOLUME 8.7 fL (7.2-11.7); MONO # 0.8 K/uL (0.0-0.8); MONO % 6.5 % (0.0-10.0); NEUT # 11.5 K/uL (1.8-7.0); NEUT % 88.7 % (50.0-75.0); NRBC % 0.1 % (0.0-2.0); PLATELET COUNT 283 K/uL (130-400); RBC 5.68 Mil/uL (3.80-5.20); WHITE BLOOD COUNT 12.9 K/uL (4.8-10.8)
[2017-03-28 14:56] LABS: ALB/GLOB RATIO 1.5 (1.0-2.1); ALBUMIN 3.6 g/dL (3.5-5.0); ALT/SGPT 49 U/L (9-52); AST/SGOT 31 U/L (14-36); BLOOD UREA NITROGEN 22 mg/dL (7-17); CALCIUM 8.6 mg/dl (8.6-10.4); GFR AFRICAN-AMERICAN > 60; GFR NON-AFRICAN AMERICAN > 60
[2017-03-28 15:03] LABS: LYMPHOCYTE 7 % (20-40); MONOCYTE 7 % (0-10); NEUTROPHIL 86 % (50-75); TOTAL CELLS COUNTED 100
[2017-03-28 15:04] LABS: PLATELET ESTIMATE NORMAL (NORMAL)
--- NOTE | 2017-03-28 15:32 | PCM.PSYCH ---
Initial Psychiatric Evaluation - Initial Psychiatric Evaluation Type of Admission: Voluntary Legal Status: Capacity Chief Complaint (in patient's own words): I have infection of the chest.' History of Present Illness and Precipitating Events: This is a 61 y/o CF, with long history of schizophrenia paranoid type, was admitted on the medical floor because of pneumonia. Today patient was consulted. The patient is well-known to the [facility]. Patient reports that she developed chest infection/pneumonia, so that's why she came to the [facility] to get help. She reports improvement in her symptoms. Patient has a long history of his schizophrenia paranoid type. Patient is compliant with her treatment recommendations. She is following up with [facility]/Dr. Bowman on a regular basis. She is getting Invega Sustenna IM shots. Patient reports improvement in her symptoms and she is asking to leave. She denies any auditory or visual hallucinations and denies any persecutory delusions. She denies any depressive or manic symptoms and denies any change in her sleep and appetite. Past medical history: Hypertension, osteoarthritis, osteoporosis, COPD, hypercholesterolemia. Current Medications: Active Medications Generic Name Dose Route Start Last Admin Trade Name Freq PRN Reason Stop Dose Admin Albuterol/Ipratropium 3 ml 03/23/17 02:00 03/28/17 13:38 Duoneb 3 Mg/0.5 Mg (3 Ml) Ud INH 3 ml RQ6 ADITHYA Administration Amlodipine Besylate 10 mg 03/23/17 10:00 03/28/17 13:49 Norvasc PO Not Given DAILY ADITHYA Aspirin 81 mg 03/23/17 10:00 03/28/17 13:47 Aspirin Chewable PO Not Given DAILY ADITHYA Diltiazem HCl 30 mg 03/23/17 10:00 03/28/17 14:36 Cardizem PO 30 mg QID ADITHYA Administration Famotidine 20 mg 03/23/17 10:00 03/28/17 13:49 Pepcid PO Not Given BID ADITHYA Gabapentin 100 mg 03/23/17 10:00 03/28/17 14:36 Neurontin PO 100 mg TID ADITHYA Administration Hydroxyzine HCl 25 mg 03/22/17 22:45 03/25/17 21:42 Atarax PO 25 mg Q6 PRN Administration Agitation Ibuprofen 600 mg 03/22/17 22:46 03/23/17 10:52 Motrin Tab PO 600 mg TID PRN Administration Pain, moderate (4-7) Lactobacillus Acidophilus 1 cap 03/23/17 10:00 03/28/17 13:48 Bacid Acidophilus PO Not Given BID [facility] Meclizine HCl 12.5 mg 03/22/17 22:45 03/28/17 14:38 Antivert PO 12.5 mg TID PRN Administration Dizziness Methylprednisolone 40 mg 03/23/17 10:00 03/28/17 13:49 Solu-Medrol IVP Not Given Q12 [facility] Moxifloxacin HCl 400 mg 03/23/17 10:00 03/28/17 13:47 Avelox PO Not Given DAILY [facility] Pantoprazole Sodium 40 mg 03/25/17 10:00 03/28/17 13:49 Protonix Susp PO Not Given Q12 [facility] Risperidone 1 mg 03/23/17 22:00 03/27/17 22:50 Risperdal Tab PO 1 mg HS ADITHYA Administration Rosuvastatin Calcium 5 mg 03/23/17 22:00 03/27/17 22:50 Crestor PO 5 mg HS ADITHYA Administration Fluticasone/Salmeterol 1 puff 03/23/17 08:00 03/28/17 08:14 Advair Diskus 500/50 INH Not Given RQ12 [facility] Tiotropium [place] 18 mcg 03/23/17 08:00 03/28/17 08:15 Spiriva INH Not Given RQ24 [facility] Tramadol HCl 50 mg 03/22/17 22:46 03/24/17 05:34 Ultram PO 50 mg BID PRN Administration pain Past Psychiatric History - Past Psychiatric History Previous Treatment History: Inpatient Pertinent Medical Hx (Current Medical&Sleep Prob, Allergies): Allergies Allergy/AdvReac Type Severity Reaction Status Date / Time Penicillins Allergy Verified 03/22/17 18:20 tetracycline Allergy Verified 03/22/17 18:20 Invega 1 unit IM MO 02/04/15 Aspirin [Aspirin Chewable] 81 mg PO DAILY #30 11/03/16 Famotidine [Pepcid] 20 mg PO BID #60 tab 11/03/16 Fluticasone/Salmeterol 500/50 [Advair Diskus 500/50] 1 puff INH RQ12 #1 puff Gabapentin [Neurontin] 100 mg PO TID #90 cap 11/03/16 Ibuprofen [Motrin Tab] 600 mg PO TID PRN #30 tab 11/03/16 Ipratropium [Atrovent HFA] 2 puff IH RQ6 #1 inhaler 11/03/16 Lactobacillus Acidophilus [Bacid Acidophilus] 1 cap PO BID #30 cap 11/03/16 Meclizine [Antivert] 12.5 mg PO TID PRN #30 tab 11/03/16 Pantoprazole [Protonix EC Tab] 40 mg PO Q12 #60 ect 11/03/16 Rosuvastatin Calcium [Crestor] 5 mg PO HS #30 tab 11/03/16 Tiotropium [Spiriva] 18 mcg INH RQ24 #30 cap 11/03/16 amLODIPine [Norvasc] 10 mg PO DAILY #30 tab 11/03/16 diltiaZEM [Cardizem] 30 mg PO QID #120 tab 11/03/16 hydrOXYzine HCl [Atarax] 25 mg PO Q6 PRN #12 tab 11/03/16 risperiDONE [RisperDAL Tab] 1 mg PO HS #30 tab 11/03/16 traMADol [Ultram] 50 mg PO BID PRN #10 tab 11/03/16 traZODone [Desyrel] 50 mg PO HS #30 tab 11/03/16 Review of Systems - Review of Systems All systems: reviewed and no additional remarkable complaints except - Psychiatric Psychiatric: Anxiety, Irritability Mental Status Examination - Personal Presentation Personal Presentation: Looks stated age - Affect Affect: Broad - Motor Activity Motor Activity: Calm - Reliability in Providing Information Reliability in Providing Information: Fair - Speech Speech: Organized - Mood Mood: Anxious - Formal Thought Process Formal Thought Process: No Impairment - Obsessions/Compulsions Obsessions: No Compulsions: No - Cognitive Functions Orientation: Person, Place, Situation, Time Sensorium: Alert Attention/Concentration: Attentive Abstract Thinking: [place] Estimate of Intelligence: Below average Judgement: Intact, as evidence by: Good judgement, Intact, as evidence by: Insight regarding need for hospitalization - Risk Risk: Diminished functioning - Strength & Assets Inventory Strength & Assets Inventory: Cooperative - Limitations Limitations: Living alone DSM 5 DX - DSM 5 DSM 5 Diagnosis: schizophrenia paranoid type continuous - Recommended/Plan of Treatment Treatment Recommendations and Plan of Treatment: Patient psychiatrically stable and clear for discharge. - Smoking Cessation Smoking Cessation Initiated: No
[2017-03-28 17:32] VITALS: BP 148/77; PULSE 100; TEMP 97.9; O2SAT 95
--- NOTE | 2017-03-28 17:34 | CP.PCM.PN ---
Subjective - Date & Time of Evaluation Date of Evaluation: 03/28/17 Time of Evaluation: 17:33 - Subjective Subjective: PATIENT WAS ADMITTED FOR COPD EXACERBATION AND BURSITIS PATIENT ALERT ORIENTED BUT ODD AT TIME DENIES CHEST PAIN, SOB, PALPITATION, NAUSEA OR VOMITING Objective - Vital Signs/Intake and Output Vital Signs (last 24 hours): Temp Pulse Resp BP Pulse Ox 97.9 F 100 H 20 148/77 95 03/28/17 17:32 03/28/17 17:32 03/28/17 17:32 03/28/17 17:32 03/28/17 17:32 Intake and Output: 03/28/17 03/28/17 06:59 18:59 Intake Total 500 Balance 500 - Medications Medications: Current Medications Albuterol/Ipratropium (Duoneb 3 Mg/0.5 Mg (3 Ml) Ud) 3 ml INH RQ6 [facility] Last Admin: 03/28/17 13:38 Dose: 3 ml Amlodipine Besylate (Norvasc) 10 mg PO DAILY [facility] Last Admin: 03/28/17 13:49 Dose: Not Given Aspirin (Aspirin Chewable) 81 mg PO DAILY [facility] Last Admin: 03/28/17 13:47 Dose: Not Given Diltiazem HCl (Cardizem) 30 mg PO QID [facility] Last Admin: 03/28/17 17:31 Dose: 30 mg Famotidine (Pepcid) 20 mg PO BID [facility] Last Admin: 03/28/17 17:31 Dose: 20 mg Gabapentin (Neurontin) 100 mg PO TID [facility] Last Admin: 03/28/17 17:31 Dose: 100 mg Hydroxyzine HCl (Atarax) 25 mg PO Q6 PRN PRN Reason: Agitation Last Admin: 03/25/17 21:42 Dose: 25 mg Ibuprofen (Motrin Tab) 600 mg PO TID PRN PRN Reason: Pain, moderate (4-7) Last Admin: 03/23/17 10:52 Dose: 600 mg Lactobacillus Acidophilus (Bacid Acidophilus) 1 cap PO BID [facility] Last Admin: 03/28/17 17:31 Dose: 1 cap Meclizine HCl (Antivert) 12.5 mg PO TID PRN PRN Reason: Dizziness Last Admin: 03/28/17 17:31 Dose: 12.5 mg Methylprednisolone (Solu-Medrol) 40 mg IVP Q12 [facility] Last Admin: 03/28/17 13:49 Dose: Not Given Moxifloxacin HCl (Avelox) 400 mg PO DAILY [facility] Last Admin: 03/28/17 13:47 Dose: Not Given Pantoprazole Sodium (Protonix Susp) 40 mg PO Q12 [facility] Last Admin: 03/28/17 13:49 Dose: Not Given Risperidone (Risperdal Tab) 1 mg PO HS [facility] Last Admin: 03/27/17 22:50 Dose: 1 mg Rosuvastatin Calcium (Crestor) 5 mg PO HS [facility] Last Admin: 03/27/17 22:50 Dose: 5 mg Fluticasone/Salmeterol (Advair Diskus 500/50) 1 puff INH RQ12 [facility] Last Admin: 03/28/17 08:14 Dose: Not Given Tiotropium [place] (Spiriva) 18 mcg INH RQ24 [facility] Last Admin: 03/28/17 08:15 Dose: Not Given Tramadol HCl (Ultram) 50 mg PO BID PRN PRN Reason: pain Last Admin: 03/24/17 05:34 Dose: 50 mg - Labs Labs: 03/28/17 14:22 03/28/17 14:22 PT 11.7 SECONDS (9.7-12.2) 03/22/17 18:46 INR 1.0 03/22/17 18:46 APTT 34 SECONDS (21-34) 03/22/17 18:46 Assessment and Plan - Assessment and Plan (Free Text) Assessment: PATIENT IS SEEN AND EXAMINED AT THE BEDSIDE; REFUSE TO TAKE HER INVEGA INJECTION SHOOT--DR GARCIA CONSULT HELP APPRECIATE PATIENT STATING THAT SHE WILL GET HER SHOOT FOR HER DR DOTY AT HIS OFFICE AND REFUSE TO TAKE ANY INJECTION IN HOSPITAL HER NIECE AT THE BEDSIDE AGREE TO TAKE THE PATIENT SOON POSSIBLE FOR HER INJECTION AT HER PSYCHITRIST POUT PATIENT DISCUSS WITH DR ARIAS WHO AGREE WITH THE PLAN FOLLOW UP WITH DR DOTY OUT PATIENT IN HIS OFFICE FOR YOUR ENVEGA JINECTION-- - CALL TO MAKE AN APPOINTMENT FOLLOW UP WITH DR ARIAS IN HIS OFFICE---CALL FOR APPOINTMENT CONTINUE TO TAKE YOUR MEDICATION DIRECTED NEW PRESCRIPTION GIVEN: MECLIZINE BY MOUTH FOR DIZZINESS LEVAQUIN 500 MG BY MOUTH DAILY FOR 5 DAYS PREDNISONE 40 MG BY MOUTH DAILY FOR 3 DAYS 20 MG BY MOUTH DAILY FOR 3 DAYS 10 MG BY MOUTH DAILY FOR 4 DAYS ACTIVITY TOLERATED CALL DR ARIAS OR GO TO THE EMERGENCY ROOM IF SYMPTOM RETURN OR WORSENING DISCUSS WITH PATIENT AND PATIENT'S FAMILY WHO AGREE AND VERBALIZED UNDERSTANDING
== END 2017-03-28 16:50 | disposition home or self-care (01) | DRG 541 ==
LOC: C.ER 16:14 → C.9E 20:42 → C.5S 03-23 09:20
PROVIDERS: ADMIT Internal Medicine; ATTEND Internal Medicine
DX: J44.0 Chronic obstructive pulmonary disease with (acute) lower respiratory infection (principal); J18.9 Pneumonia, unspecified organism; F20.0 Paranoid schizophrenia; L03.90 Cellulitis, unspecified; J44.1 Chronic obstructive pulmonary disease with (acute) exacerbation; E78.5 Hyperlipidemia, unspecified; F31.9 Bipolar disorder, unspecified; F41.9 Anxiety disorder, unspecified; F17.210 Nicotine dependence, cigarettes, uncomplicated; M81.0 Age-related osteoporosis without current pathological fracture; M19.90 Unspecified osteoarthritis, unspecified site; H66.91 Otitis media, unspecified, right ear; M70.31 Other bursitis of elbow, right elbow; Z88.0 Allergy status to penicillin

== ENCOUNTER 2017-06-16 06:16 | Inpatient (IN) | payer MEDICAID ==
[2017-06-16 06:17] VITALS: BMI 36.8
[2017-06-16 07:41] LABS: BASO # 0.1 K/uL (0.0-0.2); BASO % 0.6 % (0.0-2.0); EOS # 0.1 K/uL (0.0-0.7); EOS % 0.6 % (0.0-4.0); HEMOGLOBIN 13.5 g/dL (11.0-16.0); LYMPH # 1.4 K/uL (1.0-4.3); LYMPH % 9.1 % (20.0-40.0); MEAN CELL VOLUME 80.9 fL (81.0-99.0); MEAN CORPUSCULAR HEMOGLOBIN 28.1 pg (27.0-31.0); MEAN CORPUSCULAR HGB CONC 34.8 g/dL (33.0-37.0); MEAN PLATELET VOLUME 7.6 fL (7.2-11.7); MONO % 6.2 % (0.0-10.0); NEUT # 12.8 K/uL (1.8-7.0); NEUT % 83.5 % (50.0-75.0); PLATELET COUNT 275 K/uL (130-400); WHITE BLOOD COUNT 15.3 K/uL (4.8-10.8)
[2017-06-16 07:55] LABS: ALB/GLOB RATIO 1.3 (1.0-2.1); ALBUMIN 4.3 g/dL (3.5-5.0); ALT/SGPT 11 U/L (9-52); AST/SGOT 23 U/L (14-36); BLOOD UREA NITROGEN 8 mg/dL (7-17); CALCIUM 9.7 mg/dl (8.6-10.4); GFR AFRICAN-AMERICAN > 60; GFR NON-AFRICAN AMERICAN > 60
[2017-06-16 08:27] LABS: EOSINOPHIL 1 % (0-4); LYMPHOCYTE 10 % (20-40); MONOCYTE 8 % (0-10); NEUTROPHIL 81 % (50-75); PLATELET ESTIMATE NORMAL (NORMAL); TOTAL CELLS COUNTED 100
[2017-06-16 08:34] LABS: SQUAMOUS EPITHIAL 1 /hpf (0-5); URINE BACTERIA RARE (<OCC); URINE BILIRUBIN NEGATIVE (NEGATIVE); URINE BLOOD NEGATIVE (NEGATIVE); URINE CLARITY Clear (Clear); URINE COLOR Straw (YELLOW); URINE GLUCOSE (UA) NORMAL (Normal); URINE LEUKOCYTE ESTERASE NEG Leu/uL (Negative); URINE PROTEIN NEGATIVE (NEGATIVE); URINE UROBILINOGEN NORMAL mg/dL (0.2-1.0)
[2017-06-16 10:42] LABS: BARBITURATES, UR NEGATIVE (NEGATIVE); BENZODIAZEPINES, UR NEGATIVE (NEGATIVE); OPIATES, UR NEGATIVE (NEGATIVE); PHENCYCLIDINE, UR NEGATIVE (NEGATIVE)
--- NOTE | 2017-06-16 11:41 | C.PDOC ---
History Of Present Illness 61 y/o female presents to ED with complaints of nausea secondary to "hearing doors rattle" at home and feeling as if people are looking into her apartment. Patient states she is eating normally and denies suicidal or homicidal ideation. No other physical complaints at this time. Chief Complaint (Nursing): GI Problem History Per: Patient History/Exam Limitations: no limitations Onset/Duration Of Symptoms: Days Current Symptoms Are (Timing): Still Present Past Medical History Reviewed: Historical Data, Nursing Documentation, Vital Signs Vital Signs: Last Vital Signs Temp 98.7 F 06/16/17 16:22 Pulse 117 H 06/16/17 16:22 Resp 20 06/16/17 16:22 BP 98/66 L 06/16/17 16:22 Pulse Ox 95 06/16/17 16:22 - Medical History PMH: Anxiety, Arthritis, Bronchitis (09/2016), COPD, Depression, Emphysema, HTN , Hypercholesterolemia, Migraine, Pneumonia (2009), Schizophrenia Surgical History: No Surg Hx Family History: States: No Known Family Hx - Social History Hx Alcohol Use: No Hx Substance Use: No - Immunization History Hx Tetanus Toxoid Vaccination: No Hx Influenza Vaccination: No Hx Pneumococcal Vaccination: No Review Of Systems Constitutional: Negative for: Fever, Chills Cardiovascular: Negative for: Chest Pain Gastrointestinal: Positive for: Nausea Psych: Negative for: Anxiety, Depression, Suicidal ideation Physical Exam - Physical Exam Appears: Non-toxic, Unkempt, Other (Poor hygiene) Skin: Warm, Dry, No Rash Head: Atraumatic, Normacephalic Eye(s): bilateral: Normal Inspection Oral Mucosa: Moist Neck: Normal ROM, Supple Cardiovascular: Rhythm Regular Respiratory: Normal Breath Sounds, No Rales, No Rhonchi, No Wheezing Gastrointestinal/Abdominal: Soft, No Tenderness, No Guarding, No Rebound Extremity: Normal ROM, Capillary Refill (<2 seconds) Neurological/Psych: Oriented x3, Normal Speech Gait: Steady ED Course And Treatment - Laboratory Results Result Diagrams: 06/16/17 16:18 06/16/17 07:32 O2 Sat by Pulse Oximetry: 96 (RA) Pulse Ox Interpretation: Normal Medical Decision Making Medical Decision Making: Patient is medically cleared for psychiatric evaluation and management. Patient signed out to Dr. Grullon, pending [facility] evaluation. Disposition - Disposition Disposition Time: 19:00 Condition: STABLE Forms: [employer] ([place]) - Clinical Impression Clinical Impression: Schizophrenia - Scribe Statement The provider has reviewed the documentation as recorded by the Scribdiana Condon All medical record entries made by the Ivanaibe were at my direction and personally dictated by me. I have reviewed the chart and agree that the record accurately reflects my personal performance of the history, physical exam, medical decision making, and the department course for this patient. I have also personally directed, reviewed, and agree with the discharge instructions and disposition.
[2017-06-16 16:23] LABS: BASO # 0.2 K/uL (0.0-0.2); BASO % 1.2 % (0.0-2.0); EOS # 0.2 K/uL (0.0-0.7); EOS % 1.1 % (0.0-4.0); HEMOGLOBIN 13.7 g/dL (11.0-16.0); LYMPH # 2.8 K/uL (1.0-4.3); LYMPH % 18.5 % (20.0-40.0); MEAN CELL VOLUME 81.2 fL (81.0-99.0); MEAN CORPUSCULAR HEMOGLOBIN 27.5 pg (27.0-31.0); MEAN CORPUSCULAR HGB CONC 33.9 g/dL (33.0-37.0); MEAN PLATELET VOLUME 7.7 fL (7.2-11.7); MONO # 0.9 K/uL (0.0-0.8); MONO % 6.2 % (0.0-10.0); NEUT # 10.9 K/uL (1.8-7.0); RBC 4.97 Mil/uL (3.80-5.20); RED CELL DISTRIBUTION WIDTH 15.9 % (11.5-14.5)
[2017-06-17 08:41] VITALS: RESP 20
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
--- NOTE | 2017-06-18 08:56 | PCM.BM ---
<Charu Butt - Last Filed: 06/18/17 08:55> Treatment Plan Problems - Problems identified on initial assessmt Visual Hallucinations Date Initiated: 06/18/17 Time Initiated: 08:55 Assessment reference: NA Status: Monitor Treatment assets and liabiliti Patient Assests: cooperative Patient Liabilities: live alone - Milieu Protocol Maintain good personal hygiene: every other day Encourage regular showers, every shift Remind patient to perform daily oral care, every shift Assist patient to perform ADL's Maintain personal safety: every shift Educate patient to report safety concerns to staff, every shift Monitor environment for contraband/sharps Medication safety: Monitor for expected outcome, potential side effects: every shift, Assess barriers to learning: every shift, Assess readiness for medication education: every shift Milieu Narrative: Schizophrenia paranoid type continuous Discharge/Continuing Care - Treatment Team Participation Patient/Family/SO Statement: Schizophrenia paranoid type continuous <Marzena Wilson - Last Filed: 06/20/17 10:56> - Diagnosis (1) Schizophrenia Status: Acute Interventions: 06/20/17 10:56 * Assess/adjust medications daily and /or as needed * See patient on an individual basis 7x/week to assess status of hallucinations * Discuss risks, benefits, side effects and alternatives of medications * <Iesha Hanna - Last Filed: 06/20/17 16:06> Family Contact Family involvement: Patient does not wish Family/SO involvement Family contact: Patient declines to allow family contact at present - Goals for Treatment Patient goals for treatment: "I am going back to Dr. Bowman." Discharge/Continuing Care - Education Needs Education Needs: Patient Medication, Patient Coping Skills, Patient Aftercare Safety Plan - Discharge Discharge Criteria: Free of Suicidal thoughts, Normal sleep pattern, Ability to care for self, Reduction of target symptoms Discharge to:: Home - Treatment Team Participation Discussed with Family/SO: No Was Patient/Family/SO present at Treatment Team Meeting: Yes
--- NOTE | 2017-06-18 12:55 | PCM.PYCHPN ---
Psychiatric Progress Note - Psychiatric Progress Note Patient seen today, length of contact: 16 min Patient Chief Complaint: I am feeling salvador.' Problems Identified/Issues Discussed: Patient seen and evaluated, chart reviewed and discussed with the nurse. Patient remained disorganized and internally preoccupied. Patient remained isolated, confined and withdrawn. Patient still appears paranoid and delusional. She reports irritable and agitated mood. She is taking medication and denies any side effects. Symptoms are improving but she needs more time for stabilization. Supportive therapy and psychoeducation were given. Medication Change: Yes (increase risperdal, increase gabapentin) Medical Record Reviewed: Yes Mental Status Examination - Cognitive Function Orientation: Person, Place, Situation, Time Memory: Intact Attention: Poor Concentration: Poor Association: Loose Fund of Knowledge: Poor - Mood Mood: Euphoric - Affect Affect: Broad - Speech Speech: Loud, Pressured - Formal Thought Process Formal Thought Process: Hallucinations, Delusions, Paranoia, Loosening of associations, Flight of ideas - Suicidal Ideation Suicidal Ideation: No - Homicidal Ideation Homicidal Ideation: No Goal/Treatment Plan - Goal/Treatment Plan Need for Continued Stay: Severe depression anxiety, Severe functional impairment Progress Toward Problem(s) and Goals/Treatment Plan: Schizophrenia paranoid type continuous -CBT -Psychoeducation -Supportive therapy, group therapy, individual therapy -Increase Risperdal 2 mg PO BID -Cogentin 1 mg by mouth twice a day -Increase Neurontin 300 mg PO TID -Klonopin 1 mg PO BID -Trazodone 50 mg by mouth daily at bedtime - Smoking Cessation Smoking Cessation Initiated: No
--- NOTE | 2017-06-19 10:48 | PCM.PYCHPN ---
Psychiatric Progress Note - Psychiatric Progress Note Patient seen today, length of contact: 16 min Patient Chief Complaint: I want to leave.' Problems Identified/Issues Discussed: Patient seen and evaluated, chart reviewed and discussed with the nurse. Patient still appears paranoid and delusional. Patient remained disorganized and internally preoccupied. Patient remained isolated, confined and withdrawn. She reports irritable and agitated mood. She is taking medication and denies any side effects. Symptoms are improving but she needs more time for stabilization. Supportive therapy and psychoeducation were given. Medication Change: Yes (increase risperdal, increase gabapentin) Medical Record Reviewed: Yes Mental Status Examination - Cognitive Function Orientation: Person, Place, Situation, Time Memory: Intact Attention: Poor Concentration: Poor Association: Loose Fund of Knowledge: Poor - Mood Mood: Euphoric - Affect Affect: Broad - Speech Speech: Loud, Pressured - Formal Thought Process Formal Thought Process: Hallucinations, Delusions, Paranoia, Loosening of associations, Flight of ideas - Suicidal Ideation Suicidal Ideation: No - Homicidal Ideation Homicidal Ideation: No Goal/Treatment Plan - Goal/Treatment Plan Need for Continued Stay: Severe depression anxiety, Severe functional impairment Progress Toward Problem(s) and Goals/Treatment Plan: Schizophrenia paranoid type continuous -CBT -Psychoeducation -Supportive therapy, group therapy, individual therapy -Increase Risperdal 3 mg PO BID -Cogentin 1 mg by mouth twice a day -Increase Neurontin 300 mg PO TID -Klonopin 1 mg PO BID -Trazodone 50 mg by mouth daily at bedtime - Smoking Cessation Smoking Cessation Initiated: No
[2017-06-20] MEDS ORDERED: Pneumococcal 23-Valent Vaccine IM ONE (18:00)
[2017-06-20] MEDS ORDERED: Albuterol HFA 90 mcg/actuation (8 g) INH PRN (21:32)
[2017-06-20] MEDS ORDERED: Albuterol-Ipratrop 3 mg / 0.5 (3 ml) UD INH PRN (22:52)
[2017-06-21 06:58] VITALS: O2SAT 96
--- NOTE | 2017-06-21 14:30 | PCM.PYCHPN ---
Psychiatric Progress Note - Psychiatric Progress Note Patient seen today, length of contact: 16 min Patient Chief Complaint: I am feeling better.' Problems Identified/Issues Discussed: Patient seen and evaluated, chart reviewed and discussed with the nurse. As per the staff, she appears more organized than before. She appears less paranoid and less delusional. Patient started coming out of her room. She reports irritable mood, but she is taking medication and denies any side effects. Symptoms are improving but she needs more time for stabilization. Supportive therapy and psychoeducation were given. Medication Change: Yes (increase risperdal, increase gabapentin) Medical Record Reviewed: Yes Mental Status Examination - Cognitive Function Orientation: Person, Place, Situation, Time Memory: Intact Attention: WNL Concentration: WNL Association: Loose Fund of Knowledge: WNL - Mood Mood: Anxious - Affect Affect: Constricted - Speech Speech: Loud - Formal Thought Process Formal Thought Process: Loosening of associations - Suicidal Ideation Suicidal Ideation: No - Homicidal Ideation Homicidal Ideation: No Goal/Treatment Plan - Goal/Treatment Plan Need for Continued Stay: Severe depression anxiety, Severe functional impairment Progress Toward Problem(s) and Goals/Treatment Plan: Schizophrenia paranoid type continuous -CBT -Psychoeducation -Supportive therapy, group therapy, individual therapy -Risperdal 3 mg PO BID -Cogentin 1 mg by mouth twice a day -Neurontin 300 mg PO TID -Klonopin 1 mg PO BID -Trazodone 50 mg by mouth daily at bedtime - Smoking Cessation Smoking Cessation Initiated: No
[2017-06-22 06:12] VITALS: TEMP 98
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
[2017-06-22 16:24] VITALS: BP 141/79; PULSE 103
== END 2017-06-22 16:28 | disposition home or self-care (01) | DRG 430 ==
LOC: C.ER 06:16 → C.9E 06-17 09:09 → C.5E 06-17 11:47
PROVIDERS: ADMIT Psychiatry & Neurology Psychiatry; ATTEND Psychiatry & Neurology Psychiatry
PROC: GZHZZZZ Group Psychotherapy (ICD-10-PCS; principal; 2017-06-17)
PROC: GZ58ZZZ Individual Psychotherapy, Cognitive-Behavioral (ICD-10-PCS; 2017-06-17)
PROC: GZ56ZZZ Individual Psychotherapy, Supportive (ICD-10-PCS; 2017-06-17)
DX: F20.0 Paranoid schizophrenia (principal); N18.9 Chronic kidney disease, unspecified; J43.9 Emphysema, unspecified; E78.00 Pure hypercholesterolemia, unspecified; I12.9 Hypertensive chronic kidney disease with stage 1 through stage 4 chronic kidney disease, or unspecified chronic kidney disease; F32.9 Major depressive disorder, single episode, unspecified; M19.90 Unspecified osteoarthritis, unspecified site